=== PATIENT | female | born 1935 | race Two or more races ===

== ENCOUNTER 2017-12-05 16:32 | Inpatient (IN) | payer MEDICARE, OTHER ==
[~2017-12-05] VITALS: Ht 144.8 cm; Wt 102.5 kg
[2017-12-05 16:35] VITALS: BP 130/72
[2017-12-05] MEDS ORDERED: Sodium Chloride 500ML 500 ML IV ONE (17:01)
[2017-12-05] MEDS ORDERED: UNOBMED (17:43)
--- NOTE | 2017-12-05 18:07 | Emergency Room Report ---
History of Present Illness General Chief Complaint: Dyspnea/Respdistress Source: Patient Present Illness HPI 82-year-old female presents ED for evaluation. Patient complaining of cough and congestion times one day. Also complaining of pain and swelling to her legs. History of cellulitis to both legs and history of edema. States it is getting worse. Pain is throbbing, 8 out of 10, nonradiating. Denies chest pain or shortness of breath. Denies fevers or chills. Is on home oxygen but denies any worsening of symptoms. No other aggravating or relieving factors. Denies any other associated symptoms Allergies: Coded Allergies: No Known Allergies (Unverified , 12/05/17) Patient History Past Medical History: HTN, CHF Past Surgical History: none, pacemaker Pertinent Family History: none Social History: Denies: smoking, alcohol use, drug use Now: No Immunizations: UTD Reviewed Nursing Documentation: PMH: Agreed; PSxH: Agreed Nursing Documentation-PMH Past Medical History: No History, Except For Hx Cardiac Problems: Yes - CHF Hx Hypertension: Yes Hx Pacemaker: Yes Review of Systems All Other Systems: negative except mentioned in HPI Physical Exam Vital Signs Date Time Temp Pulse Resp B/P (MAP) Pulse Ox O2 Delivery O2 Flow Rate FiO2 12/05/17 16:25 98.4 86 20 130/72 97 Nasal Cannula 98.4 Sp02 EP Interpretation: reviewed, normal General Appearance: no apparent distress, alert, GCS 15, non-toxic Head: normocephalic, atraumatic Eyes: bilateral eye normal inspection, bilateral eye PERRL ENT: hearing grossly normal, normal pharynx, no angioedema, normal voice Neck: full range of motion, supple/symm/no masses Respiratory: chest non-tender, lungs clear, normal breath sounds, speaking full sentences Cardiovascular #1: regular rate, rhythm, no edema Cardiovascular #2: 2+ carotid (R), 2+ carotid (L), 2+ radial (R), 2+ radial (L) , 2+ dorsalis pedis (R), 2+ dorsalis pedis (L) Gastrointestinal: normal bowel sounds, non tender, soft, non-distended, no guarding, no rebound Rectal: deferred Genitourinary: normal inspection, no CVA tenderness Musculoskeletal: back normal, gait/station normal, normal range of motion, non- tender, swelling - bilateral LE Neurologic: alert, oriented x3, responsive, motor strength/tone normal, sensory intact, speech normal Psychiatric: judgement/insight normal, memory normal, mood/affect normal, no suicidal/homicidal ideation Reflexes: 3+ bicep (R), 3+ bicep (L), 3+ tricep (R), 3+ tricep (L), 3+ knee (R) , 3+ knee (L) Skin: other - erythema/induration b/l LEs Lymphatic: no adenopathy Medical Decision Making Diagnostic Impression: Primary Impression: Bilateral lower leg cellulitis Additional Impressions: CHF (congestive heart failure) Qualified Codes: I50.9 - Heart failure, unspecified Renal insufficiency ER Course Hospital Course 82-year-old female presents to ED with redness, swelling to lower extremities. c /o cough congestion Differential diagnoses include: Cellulitis, pneumonia, abscess, rash. Clinical course Patient placed on stretcher. After initial history and physical I ordered labs , blood Cx, UA, IVFs, doppler US of LLE labs reviewed - no leukocytosis, Hb/Hct stable, BUN/Cr elevated. EKG - NSR, no acute ischemic changes interpreted by me CXR - pacemaker, cardiomegaly. effusion noted antibiotics given. Case discussed with Dr Rivera and he agreed to accept the patient to his service for further care and support Diagnosis - bilateral lower extremity cellulitis. CHF. renal insuffiency Patient admitted to floor in serious condition Labs Test 12/05/17 18:05 White Blood Count 9.0 K/UL (4.8-10.8) Red Blood Count 3.80 M/UL (4.20-5.40) Hemoglobin 11.1 G/DL (12.0-16.0) Hematocrit 34.3 % (37.0-47.0) Mean Corpuscular Volume 90 FL (80-99) Mean Corpuscular Hemoglobin 29.1 PG (27.0-31.0) Mean Corpuscular Hemoglobin Concent 32.2 G/DL (32.0-36.0) Red Cell Distribution Width 15.6 % (11.6-14.8) Platelet Count 269 K/UL (150-450) Mean Platelet Volume 7.2 FL (6.5-10.1) Neutrophils (%) (Auto) 80.9 % (45.0-75.0) Lymphocytes (%) (Auto) 11.7 % (20.0-45.0) Monocytes (%) (Auto) 6.1 % (1.0-10.0) Eosinophils (%) (Auto) 0.7 % (0.0-3.0) Basophils (%) (Auto) 0.6 % (0.0-2.0) Sodium Level 139 MMOL/L (136-145) Potassium Level 4.5 MMOL/L (3.5-5.1) Chloride Level 102 MMOL/L (98-107) Carbon Dioxide Level 33 MMOL/L (21-32) Anion Gap 4 mmol/L (5-15) Blood Urea Nitrogen 32 mg/dL (7-18) Creatinine 1.5 MG/DL (0.55-1.30) Estimat Glomerular Filtration Rate mL/min (>60) Glucose Level 134 MG/DL (74-106) Lactic Acid Level 2.00 mmol/L (0.66-2.22) Calcium Level 8.4 MG/DL (8.5-10.1) Total Bilirubin 0.3 MG/DL (0.2-1.0) Aspartate Amino Transf (AST/SGOT) 18 U/L (15-37) Alanine Aminotransferase (ALT/SGPT) 29 U/L (12-78) Alkaline Phosphatase 57 U/L (46-116) Total Creatine Kinase 33 U/L (26-308) Creatine Kinase MB 1.2 NG/ML (0.0-3.6) Creatine Kinase MB Relative Index 3.6 Pro-B-Type Natriuretic Peptide 1317 pg/mL (0-125) Total Protein 6.1 G/DL (6.4-8.2) Albumin 2.4 G/DL (3.4-5.0) Globulin 3.7 g/dL Albumin/Globulin Ratio 0.6 (1.0-2.7) EKG Diagnostic Results Rate: normal Rhythm: NSR ST Segments: no acute changes ASA given to the pt in ED: No Rhythm Strip Diag. Results EP Interpretation: yes Rhythm: NSR, no PVC's, no ectopy Chest X-Ray Diagnostic Results Chest X-Ray Diagnostic Results : Chest X-Ray Ordered: Yes # of Views/Limited/Complete: 1 View Indication: Other - cough EP Interpretation: Yes Interpretation: no pneumothorax, other - cardiomegaly. bilateral effusion. pacemaker Impression: Other - chf Electronically Signed by: Electronically signed by Cesar Gonsalves MD Last Vital Signs Date Time Temp Pulse Resp B/P (MAP) Pulse Ox O2 Delivery O2 Flow Rate FiO2 12/05/17 16:35 98.4 20 130/72 97 Nasal Cannula 98.4 12/05/17 16:35 86 Status: improved Disposition: ADMITTED INPATIENT Condition: Serious Cesar Gonsalves MD December 05, 2017 18:07
[2017-12-05 18:20] LABS: BASOPHILS % (AUTO) 0.6 % (0.0-2.0); EOSINOPHILS % (AUTO) 0.7 % (0.0-3.0); HEMATOCRIT 34.3 % (37.0-47.0); HEMOGLOBIN 11.1 G/DL (12.0-16.0); LYMPHOCYTES % (AUTO) 11.7 % (20.0-45.0); MEAN CORPUSCULAR VOLUME 90 FL (80-99); MONOCYTES % (AUTO) 6.1 % (1.0-10.0); NEUTROPHILS % (AUTO) 80.9 % (45.0-75.0); PLATELET COUNT 269 K/UL (150-450); RED CELL DISTRIBUTION WIDTH 15.6 % (11.6-14.8)
[2017-12-05 18:30] LABS: ANION GAP 4 mmol/L (5-15); BLOOD UREA NITROGEN 32 mg/dL (7-18); CALCIUM 8.4 MG/DL (8.5-10.1); CARBON DIOXIDE 33 MMOL/L (21-32); CHLORIDE 102 MMOL/L (98-107); CREATININE 1.5 MG/DL (0.55-1.30); POTASSIUM 4.5 MMOL/L (3.5-5.1); SODIUM 139 MMOL/L (136-145)
[2017-12-05] MEDS ORDERED: Piperacillin/Tazobactam 3.375 GM in NS 110 ML IVPB ONE (18:30)
[2017-12-05 18:44] LABS: ALANINE AMINOTRANSFERASE 29 U/L (12-78); ALBUMIN 2.4 G/DL (3.4-5.0); ALBUMIN/GLOBULIN RATIO 0.6 (1.0-2.7); ALKALINE PHOSPHATASE 57 U/L (46-116); ASPARTATE AMINO TRANSFERASE 18 U/L (15-37); BILIRUBIN,TOTAL 0.3 MG/DL (0.2-1.0); CKMB 1.2 NG/ML (0.0-3.6); CREATINE KINASE 33 U/L (26-308)
[2017-12-05 18:49] VITALS: BP 137/98
[2017-12-05] MEDS ORDERED: Zolpidem 5mg tab ORAL PRN (21:00)
[2017-12-05] MEDS ORDERED: Milk of Magnesia 30ml Ud ORAL PRN (21:11)
[2017-12-05] MEDS ORDERED: Norco 5mg/325mg tab ORAL PRN (21:16)
[2017-12-05] MEDS: Heparin 5000 units/ml inj SUBQ SCH (22:25)
[2017-12-05] MEDS ORDERED: Vancomycin 1250mg/D5W 250ml IVPB SCH (22:30)
--- NOTE | 2017-12-05 22:30 | History and Physical Report ---
DATE OF ADMISSION: 12/05/2017 REASON FOR ADMISSION: Congestion, shortness of breath, worsening edema, and possible mild pulmonary edema. HISTORY OF PRESENT ILLNESS: The patient is an 82-year-old female, recently discharged from the half-way. The patient noted to have increasing cough and congestion over the past 1 day, also increasing edema. The patient had cellulitic changes as well, both legs. The patient notes that it has gotten worse. The pain is throbbing, 8/10. Denies any chest pain or shortness of breath. Denies any fevers or chills. The patient is on home oxygen, poorly ambulatory. The patient recently at a half-way due to persistent cellulitis and lack of improvement at home. The patient's care discussed and reviewed. PAST MEDICAL HISTORY: Hypertension, CHF, pacemaker, chronic lower extremity edema, chronic cellulitic changes, COPD/asthma and chronic congestion. MEDICATIONS: Reviewed. ALLERGIES: Reviewed. SOCIAL HISTORY: Nonsmoker and nondrinker. Lives with her , who is currently ill as well. REVIEW OF SYSTEMS: Positive for poorly ambulatory, chronic edema, chronic shortness of breath and congestion, history of pacemaker, hypertension and history of pulmonary edema. PHYSICAL EXAMINATION: GENERAL: A well-developed female, pleasant, alert. VITAL SIGNS: Blood pressure 130/72, temperature 98.4 degrees, pulse 86, respiratory rate 20, and saturation 97%. HEENT: Negative. Extraocular movements are grossly intact. Oropharynx is moist. NECK: Supple. LUNGS: Scattered rhonchi. Occasional crackle both bases. CARDIAC: S1 and S2. Regular rate and rhythm without murmurs, rubs, or gallops. ABDOMEN: Soft, obese, and nontender. EXTREMITIES: There is significant edema, diffusely possibly in the lower extremity. NEUROLOGICAL: Very weak overall. LABORATORY AND DIAGNOSTIC DATA: Lab data reviewed, but most are pending. X-ray reviewed with significant pulmonary edema. EKG noted and reviewed. IMPRESSION: 1. Probable pulmonary edema. 2. Possible underlying respiratory congestion. 3. Possible underlying pneumonia. 4. Pacemaker. 5. Hypertension. 6. Asthma/COPD. 7. Mild pleural effusion. 8. Failure to thrive. RECOMMENDATION: Supportive care. Resume medications. Monitor clinically and recommend further. Diuresis able. Empiric antibiotics and follow clinically for further changes and interventions. Stabilize. Provide respiratory care oxygen and discharge to home once the patient improves. Shubham Rivera M.D. DR: KINDRA JOB#: [id number] CC:
[2017-12-05] MEDS: Albuterol ud Inhalation HHN SCH (23:16)
[2017-12-06] MEDS: Piperacillin/Tazobactam 3.375 GM in D5W 110 ML IVPB SCH ×3 (01:52→21:39)
[2017-12-06] MEDS: Albuterol ud Inhalation HHN SCH ×6 (03:49→22:43)
[2017-12-06 04:00] VITALS: BP 113/58
[2017-12-06 07:03] LABS: ANION GAP 4 mmol/L (5-15); BLOOD UREA NITROGEN 25 mg/dL (7-18); CARBON DIOXIDE 32 MMOL/L (21-32); CHLORIDE 105 MMOL/L (98-107); CREATININE 1.5 MG/DL (0.55-1.30); POTASSIUM 3.5 MMOL/L (3.5-5.1); SODIUM 141 MMOL/L (136-145)
[2017-12-06 07:12] LABS: BASOPHILS % (AUTO) 0.9 % (0.0-2.0); EOSINOPHILS % (AUTO) 1.1 % (0.0-3.0); HEMATOCRIT 30.8 % (37.0-47.0); HEMOGLOBIN 10.1 G/DL (12.0-16.0); LYMPHOCYTES % (AUTO) 18.2 % (20.0-45.0); MEAN CORPUSCULAR VOLUME 91 FL (80-99); MONOCYTES % (AUTO) 7.6 % (1.0-10.0); NEUTROPHILS % (AUTO) 72.2 % (45.0-75.0); PLATELET COUNT 223 K/UL (150-450); RED CELL DISTRIBUTION WIDTH 16.2 % (11.6-14.8); WHITE BLOOD COUNT 6.6 K/UL (4.8-10.8)
[2017-12-06 08:00] VITALS: BP 132/68
--- NOTE | 2017-12-06 08:58 | General Progress Note ---
Assessment/Plan Problem List: (1) Renal insufficiency ICD Codes: N28.9 - Disorder of kidney and ureter, unspecified SNOMED: 435679929, 259122071 (2) CHF (congestive heart failure) ICD Codes: I50.9 - Heart failure, unspecified SNOMED: 84013041 Qualifiers: Qualified Codes: I50.9 - Heart failure, unspecified (3) Bilateral lower leg cellulitis ICD Codes: L03.116 - Cellulitis of left lower limb; L03.115 - Cellulitis of right lower limb SNOMED: 670854092 (4) Skin cancer ICD Codes: C44.90 - Unspecified malignant neoplasm of skin, unspecified SNOMED: 213621398 Status: stable Assessment/Plan diuresis iv abx cxr monitor labs follow up cultures skin care Subjective ROS Limited/Unobtainable: No Constitutional: Reports: weakness HEENT: Reports: no symptoms Cardiovascular: Reports: edema Respiratory: Reports: cough, sputum Gastrointestinal/Abdominal: Reports: no symptoms Genitourinary: Reports: no symptoms Neurologic/Psychiatric: Reports: no symptoms Endocrine: Reports: no symptoms Hematologic/Lymphatic: Reports: no symptoms Allergies: Coded Allergies: IODINE (Verified Allergy, Unknown, 12/05/17) POVIDONE-IODINE (Verified Allergy, Unknown, 12/05/17) SOAP (Verified Allergy, Unknown, 12/05/17) All Systems: reviewed and negative except above Subjective multiple complaints. still with sob. no chest pain doesnt like the food. wants to get up to chair Objective Last 24 Hour Vital Signs Date Time Temp Pulse Resp B/P (MAP) Pulse Ox O2 Delivery O2 Flow Rate FiO2 12/06/17 08:00 98.0 83 20 132/68 95 98.0 12/06/17 04:00 97.2 81 22 113/58 95 97.2 12/06/17 03:48 85 20 98 Nasal Cannula 2.0 28 12/06/17 03:30 83 20 96 Nasal Cannula 2.0 28 12/05/17 23:18 100 20 97 Nasal Cannula 2.0 28 12/05/17 23:18 100 20 Nasal Cannula 2.0 28 12/05/17 23:10 99 20 94 Nasal Cannula 2.0 28 12/05/17 19:56 98.6 22 137/98 94 Nasal Cannula 98.6 12/05/17 18:49 98.6 22 137/98 94 Nasal Cannula 98.6 12/05/17 16:35 98.4 20 130/72 97 Nasal Cannula 98.4 12/05/17 16:35 86 20 Nasal Cannula 12/05/17 16:25 98.4 86 20 130/72 97 Nasal Cannula 98.4 Intake and Output 12/05/17 12/06/17 19:00 07:00 Intake Total 500 ml 250.0 ml Balance 500 ml 250.0 ml Intake Oral 30 ml IV Total 500 ml 220.0 ml # Voids 1 Laboratory Tests 12/05/17 18:05: White Blood Count 9.0, Red Blood Count 3.80L, Hemoglobin 11.1L, Hematocrit 34.3L , Mean Corpuscular Volume 90, Mean Corpuscular Hemoglobin 29.1, Mean Corpuscular Hemoglobin Concent 32.2, Red Cell Distribution Width 15.6H, Platelet Count 269, Mean Platelet Volume 7.2, Neutrophils (%) (Auto) 80.9H, Lymphocytes (%) (Auto) 11.7L, Monocytes (%) (Auto) 6.1, Eosinophils (%) (Auto) 0.7, Basophils (%) (Auto) 0.6, Sodium Level 139, Potassium Level 4.5, Chloride Level 102, Carbon Dioxide Level 33H, Anion Gap 4L, Blood Urea Nitrogen 32H, Creatinine 1.5H, Estimat Glomerular Filtration Rate , Glucose Level 134H, Lactic Acid Level 2.00, Calcium Level 8.4L, Total Bilirubin 0.3, Aspartate Amino Transf (AST/SGOT) 18, Alanine Aminotransferase (ALT/SGPT) 29, Alkaline Phosphatase 57, Total Creatine Kinase 33, Creatine Kinase MB 1.2, Creatine Kinase MB Relative Index 3.6, Pro-B-Type Natriuretic Peptide 1317H, Total Protein 6.1L, Albumin 2.4L, Globulin 3.7, Albumin/Globulin Ratio 0.6L 12/05/17 19:25: Lactic Acid Level 1.80 12/06/17 06:00: White Blood Count 6.6, Red Blood Count 3.40L, Hemoglobin 10.1L, Hematocrit 30.8L , Mean Corpuscular Volume 91, Mean Corpuscular Hemoglobin 29.7, Mean Corpuscular Hemoglobin Concent 32.8, Red Cell Distribution Width 16.2H, Platelet Count 223, Mean Platelet Volume 7.0, Neutrophils (%) (Auto) 72.2, Lymphocytes (%) (Auto) 18.2L, Monocytes (%) (Auto) 7.6, Eosinophils (%) (Auto) 1.1, Basophils (%) (Auto) 0.9, Sodium Level 141, Potassium Level 3.5, Chloride Level 105, Carbon Dioxide Level 32, Anion Gap 4L, Blood Urea Nitrogen 25H, Creatinine 1.5H, Estimat Glomerular Filtration Rate , Glucose Level 128H, Calcium Level 8.0L, Pro-B-Type Natriuretic Peptide 1216H Height (Feet): 4 Height (Inches): 9.00 Weight (Pounds): 180 General Appearance: WD/WN, alert Neck: supple Cardiovascular: regular rhythm Respiratory/Chest: rhonchi - bilaterally Abdomen: normal bowel sounds, non tender, soft, no organomegaly Edema: moderate edema LUBA HERNANDEZ December 06, 2017 08:58
[2017-12-06] MEDS: Metoprolol 25mg tab ORAL SCH ×2 (10:10→21:39)
[2017-12-06] MEDS: Aspirin EC 81mg tab ORAL SCH (10:10)
[2017-12-06] MEDS: Heparin 5000 units/ml inj SUBQ SCH ×2 (10:12→21:41)
[2017-12-06] MEDS: Advair 250/50 Inhaler - 14 dose INH SCH ×2 (12:26→22:43)
--- NOTE | 2017-12-06 12:27 | Diagnostic Imaging Report ---
Indication: Cough Technique: XRAY Chest 1v Comparison: None Findings: Limited exam with low lung volumes. Heart is enlarged. There is pulmonary vascular congestion. There are patchy bibasilar airspace opacities which may be related to bronchovascular crowding in the lung volumes are infectious infiltrate not entirely excluded. Right-sided pacemaker in place with lead tips projecting over the expected regions of the right atrium and ventricle. No significant pleural effusion. No pneumothorax. There are degenerative changes of the spine. No acute osseous abnormality seen. Impression: Limited exam with low lung volumes. Cardiomegaly and pulmonary vascular congestion. Patchy bibasilar airspace opacities may be related to vascular crowding given low lung volumes. Infectious infiltrates not excluded. Clinical correlation and follow-up exam recommended. Study obtained via the emergency department however patient admitted to the hospital at time of dictation of the final report.
--- NOTE | 2017-12-06 13:20 | Cardiology Report ---
APPROVED REPORT EXAM: Two-dimensional and M-mode echocardiogram with Doppler and color Doppler. INDICATION Congestive Heart Failure Technically difficult and limited study due to leasions from skin cancer. Study quality precludes accurate assessment of regional wall motion. M-mode measurements of left ventricle not obtainable. Normal left ventricular chamber size, systolic function and wall motion. Left ventricular ejection fraction estimated to be 55 %. Concentric left ventricular hypertrophy. Anterior Echo-free space, may be due to pericardial fat or effusion. All other cardiac chamber sizes are within normal limits. Aortic valve calcification with decreased cusp excursion c/w aortic stenosis. Heavily thickened mitral valve leaflets with reduced excursion. Heavy mitral annulus and aortic root calcification. Pulmonic valve not visualized. Normal tricuspid valve structure. IVC dilated at 2.1 cm and non-collapsing with respiration suggestive of increased RA pressure. A color flow and spectral Doppler study was performed and revealed: Trace aortic insufficiency. Peak aortic valve gradient of 63 mm Hg and a mean of 32 mmHg. Aortic valve area 1.2 cm2 calculated by continuity equation. Moderate mitral regurgitation. Mitral inflow velocities indicates possible pseudo normalization pattern implying significant left ventricular diastolic dysfunction (Grade II). Trace tricuspid regurgitation. Tricuspid systolic velocities suggests peak right ventricular systolic pressure of 35 mmHg, consistent with mild pulmonary hypertension.
[2017-12-06 16:04] VITALS: BP 122/59
--- NOTE | 2017-12-06 17:59 | Pulmonolgy Critical Care Note ---
Critical Care - Asmt/Plan Assessment/Plan: REASON FOR ADMISSION: Congestion, shortness of breath, worsening edema, and possible mild pulmonary edema. HISTORY OF PRESENT ILLNESS: The patient is an 82-year-old female, recently discharged from the alf. The patient noted to have increasing cough and congestion over the past 1 day, also increasing edema. The patient had cellulitic changes as well, both legs. The patient notes that it has gotten worse. The pain is throbbing, 8/10. Denies any chest pain or shortness of breath. Denies any fevers or chills. The patient is on home oxygen, poorly ambulatory. The patient recently at a alf due to persistent cellulitis and lack of improvement at home. The patient's care discussed and reviewed. PAST MEDICAL HISTORY: Hypertension, CHF, pacemaker, chronic lower extremity edema, chronic cellulitic changes, COPD/asthma and chronic congestion. MEDICATIONS: Reviewed. ALLERGIES: Reviewed. SOCIAL HISTORY: Nonsmoker and nondrinker. Lives with her , who is currently ill as well. REVIEW OF SYSTEMS: Positive for poorly ambulatory, chronic edema, chronic shortness of breath and congestion, history of pacemaker, hypertension and history of pulmonary edema. PHYSICAL EXAMINATION: GENERAL: A well-developed female, pleasant, alert. VITAL SIGNS: Vital signs noted and stable, and saturation 94-8%. HEENT: Negative. Extraocular movements are grossly intact. Oropharynx is moist. NECK: Supple. LUNGS: Scattered rhonchi. Occasional crackle both bases. CARDIAC: S1 and S2. Regular rate and rhythm without murmurs, rubs, or gallops. ABDOMEN: Soft, obese, and nontender. EXTREMITIES: There is significant edema, diffusely possibly in the lower extremity. NEUROLOGICAL: Very weak overall. LABORATORY AND DIAGNOSTIC DATA: Lab data reviewed, but most are pending. X-ray reviewed with significant pulmonary edema. EKG noted and reviewed. IMPRESSION: 1. Probable pulmonary edema. 2. Possible underlying respiratory congestion. 3. Possible underlying pneumonia. 4. Pacemaker. 5. Hypertension. 6. Asthma/COPD. 7. Mild pleural effusion. 8. Failure to thrive. RECOMMENDATION: Supportive care. Resume medications. Monitor clinically and recommend further. Diuresis able. Empiric antibiotics and follow clinically for further changes and interventions. Stabilize. Provide respiratory care oxygen and discharge to home once the patient improves. Critical Care - Objective Last 24 Hour Vital Signs Date Time Temp Pulse Resp B/P (MAP) Pulse Ox O2 Delivery O2 Flow Rate FiO2 12/06/17 16:04 97.8 85 21 122/59 97 Room Air 97.8 12/06/17 15:50 68 20 99 Nasal Cannula 2.0 28 12/06/17 15:38 67 20 96 Nasal Cannula 2.0 28 12/06/17 13:36 79 22 99 Nasal Cannula 2.0 28 12/06/17 12:28 79 20 99 Nasal Cannula 2.0 12/06/17 12:26 78 22 99 Nasal Cannula 2.0 12/06/17 12:26 78 22 99 Nasal Cannula 2.0 12/06/17 10:10 81 132/68 12/06/17 08:57 81 22 95 Nasal Cannula 2.0 12/06/17 08:00 98.0 83 20 132/68 95 98.0 12/06/17 04:00 97.2 81 22 113/58 95 97.2 12/06/17 03:48 85 20 98 Nasal Cannula 2.0 12/06/17 03:30 83 20 96 Nasal Cannula 2.0 12/05/17 23:18 100 20 97 Nasal Cannula 2.0 12/05/17 23:18 100 20 Nasal Cannula 2.0 12/05/17 23:10 99 20 94 Nasal Cannula 2.0 12/05/17 19:56 98.6 22 137/98 94 Nasal Cannula 98.6 12/05/17 18:49 98.6 22 137/98 94 Nasal Cannula 98.6 Micro: Microbiology Date/Time Source Procedure Growth Status 12/06/17 01:00 Leg Left Gram Stain - Final Resulted 12/06/17 01:00 Leg Left Wound Culture Pending Resulted Critical Care - Subjective ROS Limited/Unobtainable: Yes Condition: stable EKG Rhythm: Sinus Rhythm FI02: 28 Sputum Amount: Small I&O: Intake and Output 12/05/17 12/06/17 19:00 07:00 Intake Total 500 ml 250.0 ml Balance 500 ml 250.0 ml Intake Oral 30 ml IV Total 500 ml 220.0 ml # Voids 1 Levi Byers M.D. December 06, 2017 17:59
[2017-12-06] MEDS ORDERED: Triamcinolone 0.1% 15gm Cr TOPIC SCH (18:00)
[2017-12-06] MEDS: Triamcinolone 0.1% 15gm Cr TOPIC SCH (18:06)
[2017-12-06] MEDS: Pred Forte 1% Opth Susp 1ml RIGHT EYE SCH ×2 (18:06→21:40)
[2017-12-06] MEDS: Montelukast 10mg tablet ORAL SCH (18:06)
[2017-12-06 20:00] VITALS: BP 126/62
--- NOTE | 2017-12-07 00:15 | Progress Note ---
DATE: 12/06/2017 CARDIOLOGY PROGRESS NOTE SUBJECTIVE: The patient remains short of breath even at rest. Diuresis efforts are ongoing. OBJECTIVE: VITAL SIGNS: Blood pressure 132/68, pulse 83, and respirations 20. LUNGS: With bilateral breath sounds. Scattered rhonchi and rales. HEART: Regular rhythm and rate. Normal S1 and S2 with a 1/6 systolic murmur at apex. ABDOMEN: Soft and nontender. EXTREMITIES: With trace edema. LABORATORY AND DIAGNOSTIC DATA: Echocardiogram revealed ejection fraction of 55%, aortic valve area of 1.2, and PA systolic pressure of 35. White count 6.6 and hemoglobin 10. Sodium 141, potassium 3.5, BUN 25, and creatinine 1.5. Pro-natriuretic peptide 1216. Albumin 2.4. IMPRESSION: 1. Acute on chronic diastolic congestive heart failure. 2. Probable pneumonia. 3. Paroxysmal bronchospasm. 4. Permanent pacemaker. 5. Hypertensive heart disease. 6. Chronic obstructive pulmonary disease. 7. Pleural effusion. PLAN: 1. Diuresis. 2. Pacemaker interrogation if not recently done. 3. We will attempt to obtain records. 4. Bronchodilators, empiric antibiotics, and DVT prophylaxis. 5. Replace electrolytes as needed. 6. Oxygen supplementation as well. Levi Wu M.D. DR: MADHU JOB#: [id number] CC:
[2017-12-07] MEDS: Albuterol ud Inhalation HHN SCH ×6 (03:00→23:04)
[2017-12-07 04:00] VITALS: BP 127/58
[2017-12-07 08:00] VITALS: BP 142/68
--- NOTE | 2017-12-07 08:38 | General Progress Note ---
Assessment/Plan Problem List: (1) Renal insufficiency ICD Codes: N28.9 - Disorder of kidney and ureter, unspecified SNOMED: 736586899, 555892849 (2) CHF (congestive heart failure) ICD Codes: I50.9 - Heart failure, unspecified SNOMED: 14235153 Qualifiers: Qualified Codes: I50.9 - Heart failure, unspecified (3) Bilateral lower leg cellulitis ICD Codes: L03.116 - Cellulitis of left lower limb; L03.115 - Cellulitis of right lower limb SNOMED: 052093495 (4) Skin cancer ICD Codes: C44.90 - Unspecified malignant neoplasm of skin, unspecified SNOMED: 658636171 Status: stable, progressing Assessment/Plan diuresis iv abx cxr monitor labs follow up cultures skin care Subjective ROS Limited/Unobtainable: No Constitutional: Reports: malaise, weakness HEENT: Reports: no symptoms Cardiovascular: Reports: no symptoms Respiratory: Reports: cough, wheezing Gastrointestinal/Abdominal: Reports: no symptoms Genitourinary: Reports: no symptoms Neurologic/Psychiatric: Reports: no symptoms Endocrine: Reports: no symptoms Hematologic/Lymphatic: Reports: no symptoms Allergies: Coded Allergies: IODINE (Verified Allergy, Unknown, 12/05/17) POVIDONE-IODINE (Verified Allergy, Unknown, 12/05/17) SOAP (Verified Allergy, Unknown, 12/05/17) All Systems: reviewed and negative except above Subjective no events. less sob today. getting resp rx. no fevers or chills. Objective Last 24 Hour Vital Signs Date Time Temp Pulse Resp B/P (MAP) Pulse Ox O2 Delivery O2 Flow Rate FiO2 12/07/17 08:15 76 18 99 Nasal Cannula 2.0 12/07/17 08:08 Nasal Cannula 2.0 12/07/17 08:08 99 Nasal Cannula 2.0 12/07/17 08:04 74 16 99 Nasal Cannula 2.0 12/07/17 04:00 97.6 64 20 127/58 97 Nasal Cannula 97.6 12/07/17 03:07 2.0 12/07/17 03:06 2.0 12/07/17 00:00 Nasal Cannula 12/06/17 22:52 80 20 99 Nasal Cannula 2.0 12/06/17 22:44 75 20 98 Nasal Cannula 2.0 12/06/17 22:44 77 20 98 Nasal Cannula 2.0 28 12/06/17 22:44 77 22 99 Nasal Cannula 2.0 28 12/06/17 21:39 80 126/62 12/06/17 20:00 97.5 80 19 126/62 98 Nasal Cannula 97.5 12/06/17 19:11 81 20 100 Nasal Cannula 2.0 28 12/06/17 19:00 82 20 98 Nasal Cannula 2.0 28 12/06/17 16:04 97.8 85 21 122/59 97 Room Air 97.8 12/06/17 15:50 68 20 99 Nasal Cannula 2.0 28 12/06/17 15:38 67 20 96 Nasal Cannula 2.0 28 12/06/17 13:36 79 22 99 Nasal Cannula 2.0 28 12/06/17 12:28 79 20 99 Nasal Cannula 2.0 12/06/17 12:26 78 22 99 Nasal Cannula 2.0 12/06/17 12:26 78 22 99 Nasal Cannula 2.0 12/06/17 10:10 81 132/68 12/06/17 08:57 81 22 95 Nasal Cannula 2.0 28 Intake and Output 12/06/17 12/07/17 19:00 07:00 Intake Total 1280 ml 120 ml Balance 1280 ml 120 ml Intake Oral 1280 ml 120 ml # Voids 6 3 # Bowel Movements 4 Height (Feet): 4 Height (Inches): 9.00 Weight (Pounds): 180 General Appearance: WD/WN Neck: supple Cardiovascular: normal rate, regular rhythm Respiratory/Chest: expiratory wheezing Edema: no edema noted Arm (L), no edema noted Arm (R), no edema noted Leg (L), no edema noted Leg (R), no edema noted Pedal (L), no edema noted Pedal (R), no edema noted Generalized LUBA HERNANDEZ December 07, 2017 08:38
[2017-12-07] MEDS ORDERED: Esomeprazole sodium 40mg vial IVP SCH (09:00)
[2017-12-07] MEDS: Metoprolol 25mg tab ORAL SCH ×2 (09:19→20:14)
[2017-12-07] MEDS: Aspirin EC 81mg tab ORAL SCH (09:19)
[2017-12-07] MEDS: Pred Forte 1% Opth Susp 1ml RIGHT EYE SCH ×4 (09:19→20:26)
[2017-12-07] MEDS: Advair 250/50 Inhaler - 14 dose INH SCH ×2 (09:20→19:54)
[2017-12-07] MEDS: Premarin tab 0.625MG ORAL SCH (09:20)
[2017-12-07] MEDS: Triamcinolone 0.1% 15gm Cr TOPIC SCH ×2 (09:21→17:22)
[2017-12-07] MEDS: Heparin 5000 units/ml inj SUBQ SCH ×2 (09:22→20:25)
[2017-12-07] MEDS: Piperacillin/Tazobactam 3.375 GM in D5W 110 ML IVPB SCH ×2 (09:23→20:15)
[2017-12-07 09:42] LABS: ALANINE AMINOTRANSFERASE 25 U/L (12-78); ALBUMIN 2.3 G/DL (3.4-5.0); ALBUMIN/GLOBULIN RATIO 0.7 (1.0-2.7); ALKALINE PHOSPHATASE 49 U/L (46-116); ANION GAP 6 mmol/L (5-15); ASPARTATE AMINO TRANSFERASE 16 U/L (15-37); BILIRUBIN,TOTAL 0.3 MG/DL (0.2-1.0); BLOOD UREA NITROGEN 20 mg/dL (7-18); CALCIUM 8.2 MG/DL (8.5-10.1); CARBON DIOXIDE 33 MMOL/L (21-32); CHLORIDE 105 MMOL/L (98-107); CREATININE 1.2 MG/DL (0.55-1.30); SODIUM 144 MMOL/L (136-145)
[2017-12-07 12:00] VITALS: BP 124/74
[2017-12-07] MEDS: Vancomycin 1gm in D5W 275ml IVPB SCH (13:07)
[2017-12-07 16:00] VITALS: BP 111/69
--- NOTE | 2017-12-07 17:02 | Pulmonolgy Critical Care Note ---
Critical Care - Asmt/Plan Assessment/Plan: REASON FOR ADMISSION: Congestion, shortness of breath, worsening edema, and possible mild pulmonary edema. HISTORY OF PRESENT ILLNESS: The patient is an 82-year-old female, [facility]. The patient noted to have increasing cough and congestion over the past 1 day, also increasing edema. The patient had cellulitic changes as well, both legs. The patient notes that it has gotten worse. The pain is throbbing, 8/10. Denies any chest pain or shortness of breath. Denies any fevers or chills. The patient is on home oxygen, poorly ambulatory. The patient recently at a [facility] due to persistent cellulitis and lack of improvement at home. The patient's care discussed and reviewed. Less short of breath today PAST MEDICAL HISTORY: Hypertension, CHF, pacemaker, chronic lower extremity edema, chronic cellulitic changes, COPD/asthma and chronic congestion. MEDICATIONS: Reviewed. ALLERGIES: Reviewed. SOCIAL HISTORY: Nonsmoker and nondrinker. Lives with her , who is currently ill as well. REVIEW OF SYSTEMS: Positive for poorly ambulatory, chronic edema, chronic shortness of breath and congestion, history of pacemaker, hypertension and history of pulmonary edema. PHYSICAL EXAMINATION: GENERAL: A well-developed female, pleasant, alert. VITAL SIGNS: Vital signs noted and stable, and saturation 94-8%. HEENT: Negative. Extraocular movements are grossly intact. Oropharynx is moist. NECK: Supple. LUNGS: Scattered rhonchi. Occasional crackle both bases. CARDIAC: S1 and S2. Regular rate and rhythm without murmurs, rubs, or gallops. ABDOMEN: Soft, obese, and nontender. EXTREMITIES: There is significant edema, diffusely possibly in the lower extremity. NEUROLOGICAL: Very weak overall. LABORATORY AND DIAGNOSTIC DATA: Lab data reviewed, but most are pending. X-ray reviewed with significant pulmonary edema. EKG noted and reviewed. IMPRESSION: 1. Probable pulmonary edema. 2. Possible underlying respiratory congestion. 3. Possible underlying pneumonia. 4. Pacemaker. 5. Hypertension. 6. Asthma/COPD. 7. Mild pleural effusion. 8. Failure to thrive. RECOMMENDATION: Supportive care. Resume medications. Monitor clinically and recommend further. Diuresis able. Empiric antibiotics and follow clinically for further changes and interventions. Stabilize. Provide respiratory care oxygen and discharge to home once the patient improves. Critical Care - Objective Last 24 Hour Vital Signs Date Time Temp Pulse Resp B/P (MAP) Pulse Ox O2 Delivery O2 Flow Rate FiO2 12/07/17 16:00 98.0 79 21 111/69 100 Nasal Cannula 2.0 98.0 12/07/17 14:42 81 18 99 Nasal Cannula 2.0 28 12/07/17 14:32 79 18 97 Nasal Cannula 2.0 28 12/07/17 12:00 97.3 80 20 124/74 97 Nasal Cannula 2.0 97.3 12/07/17 11:22 83 20 99 Nasal Cannula 2.0 28 12/07/17 11:12 80 20 97 Nasal Cannula 2.0 12/07/17 10:02 Nasal Cannula 2.0 28 12/07/17 10:02 Nasal Cannula 2.0 28 12/07/17 09:19 76 142/68 12/07/17 08:15 76 18 99 Nasal Cannula 2.0 28 12/07/17 08:08 Nasal Cannula 2.0 28 12/07/17 08:08 99 Nasal Cannula 2.0 12/07/17 08:04 74 16 99 Nasal Cannula 2.0 28 12/07/17 08:00 98.6 77 20 142/68 100 Nasal Cannula 2.0 98.6 12/07/17 04:00 97.6 64 20 127/58 97 Nasal Cannula 97.6 12/07/17 03:07 2.0 28 12/07/17 03:06 2.0 28 12/07/17 00:00 Nasal Cannula 12/06/17 22:52 80 20 99 Nasal Cannula 2.0 12/06/17 22:44 75 20 98 Nasal Cannula 2.0 12/06/17 22:44 77 20 98 Nasal Cannula 2.0 28 12/06/17 22:44 77 22 99 Nasal Cannula 2.0 28 12/06/17 21:39 80 126/62 12/06/17 20:00 97.5 80 19 126/62 98 Nasal Cannula 97.5 12/06/17 19:11 81 20 100 Nasal Cannula 2.0 28 12/06/17 19:00 82 20 98 Nasal Cannula 2.0 28 Micro: Microbiology Date/Time Source Procedure Growth Status 12/05/17 18:05 Blood Blood Culture - Preliminary NO GROWTH AFTER 24 HOURS Resulted 12/05/17 17:45 Blood Blood Culture - Preliminary NO GROWTH AFTER 24 HOURS Resulted 12/06/17 01:00 Leg Left Gram Stain - Final Resulted 12/06/17 01:00 Wound Culture - Preliminary Gram Negative Bacillus 1 Resulted Critical Care - Subjective ROS Limited/Unobtainable: No Condition: improving EKG Rhythm: Sinus Rhythm FI02: 28 Sputum Amount: None I&O: Intake and Output 12/06/17 12/07/17 19:00 07:00 Intake Total 1280 ml 120 ml Balance 1280 ml 120 ml Intake Oral 1280 ml 120 ml # Voids 6 3 # Bowel Movements 4 Levi Byers M.D. December 07, 2017 17:01
[2017-12-07] MEDS: Montelukast 10mg tablet ORAL SCH (17:21)
[2017-12-07 20:00] VITALS: BP 149/101
[2017-12-08] VITALS: BP 134/54
[2017-12-08] MEDS: Albuterol ud Inhalation HHN SCH ×6 (03:00→23:00)
[2017-12-08 04:00] VITALS: BP 133/55
[2017-12-08 08:00] VITALS: BP 149/67
--- NOTE | 2017-12-08 08:09 | General Progress Note ---
Assessment/Plan Problem List: (1) Renal insufficiency ICD Codes: N28.9 - Disorder of kidney and ureter, unspecified SNOMED: 062234637, 079682506 (2) CHF (congestive heart failure) ICD Codes: I50.9 - Heart failure, unspecified SNOMED: 92082193 Qualifiers: Qualified Codes: I50.9 - Heart failure, unspecified (3) Bilateral lower leg cellulitis ICD Codes: L03.116 - Cellulitis of left lower limb; L03.115 - Cellulitis of right lower limb SNOMED: 265449982 (4) Skin cancer ICD Codes: C44.90 - Unspecified malignant neoplasm of skin, unspecified SNOMED: 053184004 Status: stable Assessment/Plan diuresis iv abx cxr monitor labs follow up cultures skin care dc planning tomorrow if stable Subjective ROS Limited/Unobtainable: No Constitutional: Reports: malaise, weakness HEENT: Reports: no symptoms Cardiovascular: Reports: no symptoms Respiratory: Reports: cough Gastrointestinal/Abdominal: Reports: no symptoms Genitourinary: Reports: no symptoms Neurologic/Psychiatric: Reports: no symptoms Endocrine: Reports: no symptoms Hematologic/Lymphatic: Reports: no symptoms Allergies: Coded Allergies: IODINE (Verified Allergy, Unknown, 12/05/17) POVIDONE-IODINE (Verified Allergy, Unknown, 12/05/17) SOAP (Verified Allergy, Unknown, 12/05/17) All Systems: reviewed and negative except above Subjective no events. less sob today. getting resp rx. no fevers or chills. no new complaints. Objective Last 24 Hour Vital Signs Date Time Temp Pulse Resp B/P (MAP) Pulse Ox O2 Delivery O2 Flow Rate FiO2 12/08/17 04:00 97.8 81 20 133/55 100 97.8 12/08/17 03:02 Nasal Cannula 12/08/17 03:01 Nasal Cannula 12/08/17 00:00 97.2 81 20 134/54 95 97.2 12/07/17 23:11 79 21 100 Nasal Cannula 2.0 28 12/07/17 23:03 28 12/07/17 23:02 79 21 100 Nasal Cannula 2.0 28 12/07/17 20:23 79 21 100 Nasal Cannula 2.0 28 12/07/17 20:14 76 149/101 12/07/17 20:03 79 21 100 Nasal Cannula 2.0 12/07/17 20:00 97.6 76 20 149/101 95 Nasal Cannula 2.0 97.6 12/07/17 19:52 28 12/07/17 19:52 79 21 100 Nasal Cannula 2.0 12/07/17 19:52 79 21 100 Nasal Cannula 2.0 12/07/17 19:51 Nasal Cannula 2.0 12/07/17 19:51 79 21 100 Nasal Cannula 2.0 12/07/17 19:47 100 Nasal Cannula 2.0 12/07/17 16:00 98.0 79 21 111/69 100 Nasal Cannula 2.0 98.0 12/07/17 14:42 81 18 99 Nasal Cannula 2.0 12/07/17 14:32 79 18 97 Nasal Cannula 2.0 12/07/17 12:00 97.3 80 20 124/74 97 Nasal Cannula 2.0 97.3 12/07/17 11:22 83 20 99 Nasal Cannula 2.0 12/07/17 11:12 80 20 97 Nasal Cannula 2.0 12/07/17 10:02 Nasal Cannula 2.0 28 12/07/17 10:02 Nasal Cannula 2.0 12/07/17 09:19 76 142/68 12/07/17 08:15 76 18 99 Nasal Cannula 2.0 28 Intake and Output 12/07/17 12/08/17 19:00 07:00 Intake Total 945.0 ml 182.5 ml Output Total 500 ml 450 ml Balance 445.0 ml -267.5 ml Intake Oral 560 ml 100 ml IV Total 385.0 ml 82.5 ml Output Urine Total 500 ml 450 ml # Voids 4 # Bowel Movements 4 Height (Feet): 4 Height (Inches): 9.00 Weight (Pounds): 180 MARYJERAMYK December 08, 2017 08:09
[2017-12-08] MEDS: Piperacillin/Tazobactam 3.375 GM in D5W 110 ML IVPB SCH ×2 (08:57→20:48)
[2017-12-08] MEDS: Premarin tab 0.625MG ORAL SCH (08:57)
[2017-12-08] MEDS: Metoprolol 25mg tab ORAL SCH ×2 (08:57→20:49)
[2017-12-08] MEDS: Pred Forte 1% Opth Susp 1ml RIGHT EYE SCH ×4 (08:57→20:57)
[2017-12-08] MEDS: Triamcinolone 0.1% 15gm Cr TOPIC SCH ×2 (08:57→17:26)
[2017-12-08] MEDS: Aspirin EC 81mg tab ORAL SCH (08:57)
[2017-12-08] MEDS: Heparin 5000 units/ml inj SUBQ SCH ×2 (08:59→20:57)
[2017-12-08] MEDS: Advair 250/50 Inhaler - 14 dose INH SCH ×2 (09:52→19:50)
[2017-12-08 11:30] VITALS: BP 116/54
[2017-12-08 16:00] VITALS: BP 109/68
--- NOTE | 2017-12-08 17:20 | Pulmonolgy Critical Care Note ---
Critical Care - Asmt/Plan Assessment/Plan: REASON FOR ADMISSION: Congestion, shortness of breath, worsening edema, and possible mild pulmonary edema. HISTORY OF PRESENT ILLNESS: The patient is an 82-year-old female, [facility]. The patient noted to have increasing cough and congestion over the past 1 day, also increasing edema. The patient had cellulitic changes as well, both legs. The patient notes that it has gotten worse. The pain is throbbing, 8/10. Denies any chest pain or shortness of breath. Denies any fevers or chills. The patient is on home oxygen, poorly ambulatory. The patient recently at a [facility] due to persistent cellulitis and lack of improvement at home. The patient's care discussed and reviewed. Less short of breath today, no new complaints PAST MEDICAL HISTORY: Hypertension, CHF, pacemaker, chronic lower extremity edema, chronic cellulitic changes, COPD/asthma and chronic congestion. MEDICATIONS: Reviewed. ALLERGIES: Reviewed. SOCIAL HISTORY: Nonsmoker and nondrinker. Lives with her , who is currently ill as well. REVIEW OF SYSTEMS: Positive for poorly ambulatory, chronic edema, chronic shortness of breath and congestion, history of pacemaker, hypertension and history of pulmonary edema. PHYSICAL EXAMINATION: GENERAL: A well-developed female, pleasant, alert. VITAL SIGNS: Vital signs noted and stable, and saturation 94-8%. HEENT: Negative. Extraocular movements are grossly intact. Oropharynx is moist. NECK: Supple. LUNGS: Scattered rhonchi. Occasional crackle both bases. CARDIAC: S1 and S2. Regular rate and rhythm without murmurs, rubs, or gallops. ABDOMEN: Soft, obese, and nontender. EXTREMITIES: There is significant edema, diffusely possibly in the lower extremity. NEUROLOGICAL: Very weak overall. LABORATORY AND DIAGNOSTIC DATA: Lab data reviewed, but most are pending. X-ray reviewed with significant pulmonary edema. EKG noted and reviewed. IMPRESSION: 1. Probable pulmonary edema. 2. Possible underlying respiratory congestion. 3. Possible underlying pneumonia. 4. Pacemaker. 5. Hypertension. 6. Asthma/COPD. 7. Mild pleural effusion. 8. Failure to thrive. RECOMMENDATION: Supportive care. Resume medications. Monitor clinically and recommend further. Diuresis able. Empiric antibiotics and follow clinically for further changes and interventions. Stabilize. Provide respiratory care oxygen and discharge to home once the patient improves. Critical Care - Objective Last 24 Hour Vital Signs Date Time Temp Pulse Resp B/P (MAP) Pulse Ox O2 Delivery O2 Flow Rate FiO2 12/08/17 16:03 83 20 99 Nasal Cannula 2.0 28 12/08/17 16:00 97.6 90 16 109/68 95 97.6 12/08/17 15:55 76 18 99 Nasal Cannula 2.0 12/08/17 11:30 97.6 100 20 116/54 100 97.6 12/08/17 11:20 84 20 99 Nasal Cannula 2.0 28 12/08/17 11:13 74 18 99 Nasal Cannula 2.0 28 12/08/17 09:54 86 20 97 Nasal Cannula 2.0 12/08/17 09:52 86 18 96 Nasal Cannula 2.0 28 12/08/17 08:57 82 149/67 12/08/17 08:17 82 20 99 Nasal Cannula 2.0 12/08/17 08:08 100 Nasal Cannula 2.0 12/08/17 08:08 75 18 99 Nasal Cannula 2.0 12/08/17 08:08 Nasal Cannula 2.0 12/08/17 08:00 97.7 76 20 149/67 100 97.7 12/08/17 04:00 97.8 81 20 133/55 100 97.8 12/08/17 03:02 Nasal Cannula 12/08/17 03:01 Nasal Cannula 12/08/17 00:00 97.2 81 20 134/54 95 97.2 12/07/17 23:11 79 21 100 Nasal Cannula 2.0 12/07/17 23:03 28 12/07/17 23:02 79 21 100 Nasal Cannula 2.0 28 12/07/17 20:23 79 21 100 Nasal Cannula 2.0 28 12/07/17 20:14 76 149/101 12/07/17 20:03 79 21 100 Nasal Cannula 2.0 12/07/17 20:00 97.6 76 20 149/101 95 Nasal Cannula 2.0 97.6 12/07/17 19:52 28 12/07/17 19:52 79 21 100 Nasal Cannula 2.0 12/07/17 19:52 79 21 100 Nasal Cannula 2.0 12/07/17 19:51 Nasal Cannula 2.0 28 12/07/17 19:51 79 21 100 Nasal Cannula 2.0 28 12/07/17 19:47 100 Nasal Cannula 2.0 28 Micro: Microbiology Date/Time Source Procedure Growth Status 12/05/17 18:05 Blood Blood Culture - Preliminary NO GROWTH AFTER 48 HOURS Resulted 12/05/17 17:45 Blood Blood Culture - Preliminary NO GROWTH AFTER 48 HOURS Resulted 12/06/17 01:00 Leg Left Gram Stain - Final Resulted 12/06/17 01:00 Wound Culture - Preliminary A.baumanii Complx - Mdr Diphtheroids Resulted Critical Care - Subjective ROS Limited/Unobtainable: No Condition: improving IV Access: peripheral EKG Rhythm: Sinus Rhythm FI02: 28 Sputum Amount: None I&O: Intake and Output 12/07/17 12/08/17 19:00 07:00 Intake Total 945.0 ml 182.5 ml Output Total 500 ml 450 ml Balance 445.0 ml -267.5 ml Intake Oral 560 ml 100 ml IV Total 385.0 ml 82.5 ml Output Urine Total 500 ml 450 ml # Voids 4 # Bowel Movements 4 Levi Byers M.D. December 08, 2017 17:20
[2017-12-08] MEDS: Montelukast 10mg tablet ORAL SCH (17:25)
[2017-12-08 20:00] VITALS: BP 141/88
[2017-12-09] VITALS: BP 134/69
[2017-12-09] MEDS: Vancomycin 1gm in D5W 275ml IVPB SCH (00:47)
[2017-12-09 04:00] VITALS: BP 131/56
[2017-12-09] MEDS: Albuterol ud Inhalation HHN SCH ×6 (04:03→23:00)
--- NOTE | 2017-12-09 07:32 | General Progress Note ---
Assessment/Plan Problem List: (1) Renal insufficiency ICD Codes: N28.9 - Disorder of kidney and ureter, unspecified SNOMED: 600427812, 077054279 (2) CHF (congestive heart failure) ICD Codes: I50.9 - Heart failure, unspecified SNOMED: 95601489 Qualifiers: Qualified Codes: I50.9 - Heart failure, unspecified (3) Bilateral lower leg cellulitis ICD Codes: L03.116 - Cellulitis of left lower limb; L03.115 - Cellulitis of right lower limb SNOMED: 447743330 (4) Skin cancer ICD Codes: C44.90 - Unspecified malignant neoplasm of skin, unspecified SNOMED: 773016613 Status: stable, progressing Assessment/Plan diuresis iv abx id eval called cxr ordered resp rx monitor labs skin care Subjective ROS Limited/Unobtainable: No Constitutional: Reports: malaise, weakness HEENT: Reports: no symptoms Cardiovascular: Reports: edema Respiratory: Reports: cough, shortness of breath Gastrointestinal/Abdominal: Reports: no symptoms Genitourinary: Reports: no symptoms Neurologic/Psychiatric: Reports: no symptoms Endocrine: Reports: no symptoms Hematologic/Lymphatic: Reports: no symptoms Allergies: Coded Allergies: IODINE (Verified Allergy, Unknown, 12/05/17) POVIDONE-IODINE (Verified Allergy, Unknown, 12/05/17) SOAP (Verified Allergy, Unknown, 12/05/17) All Systems: reviewed and negative except above Subjective no events. still sob. wound culture growing MDR acinetobacter. getting resp rx. no fevers or chills. no new complaints. Objective Last 24 Hour Vital Signs Date Time Temp Pulse Resp B/P (MAP) Pulse Ox O2 Delivery O2 Flow Rate FiO2 12/09/17 04:00 74 18 95 Nasal Cannula 2.0 28 12/09/17 04:00 80 20 97 Nasal Cannula 2.0 28 12/09/17 04:00 97.5 78 20 131/56 96 97.5 12/09/17 00:00 97.9 69 20 134/69 100 97.9 12/08/17 23:30 Nasal Cannula 2.0 28 12/08/17 23:00 Nasal Cannula 2.0 28 12/08/17 20:49 93 141/88 12/08/17 20:00 98.1 93 19 141/88 98 98.1 12/08/17 19:53 88 20 98 Nasal Cannula 2.0 12/08/17 19:53 80 18 96 Nasal Cannula 2.0 12/08/17 19:52 88 20 98 Nasal Cannula 2.0 12/08/17 19:52 Nasal Cannula 2.0 12/08/17 19:52 98 Nasal Cannula 2.0 12/08/17 19:51 80 18 96 Nasal Cannula 2.0 12/08/17 16:03 83 20 99 Nasal Cannula 2.0 12/08/17 16:00 97.6 90 16 109/68 95 97.6 12/08/17 15:55 76 18 99 Nasal Cannula 2.0 12/08/17 11:30 97.6 100 20 116/54 100 97.6 12/08/17 11:20 84 20 99 Nasal Cannula 2.0 12/08/17 11:13 74 18 99 Nasal Cannula 2.0 12/08/17 09:54 86 20 97 Nasal Cannula 2.0 12/08/17 09:52 86 18 96 Nasal Cannula 2.0 12/08/17 08:57 82 149/67 12/08/17 08:17 82 20 99 Nasal Cannula 2.0 12/08/17 08:08 100 Nasal Cannula 2.0 12/08/17 08:08 75 18 99 Nasal Cannula 2.0 12/08/17 08:08 Nasal Cannula 2.0 12/08/17 08:00 97.7 76 20 149/67 100 97.7 Intake and Output 12/08/17 12/09/17 19:00 07:00 Intake Total 500 ml 477.416 ml Balance 500 ml 477.416 ml Intake Oral 500 ml IV Total 477.416 ml # Voids 2 3 Height (Feet): 4 Height (Inches): 9.00 Weight (Pounds): 180 LUBA HERNANDEZ December 09, 2017 07:32
[2017-12-09 08:00] VITALS: BP 128/58
[2017-12-09] MEDS: Advair 250/50 Inhaler - 14 dose INH SCH ×2 (08:28→19:53)
[2017-12-09] MEDS: Aspirin EC 81mg tab ORAL SCH (08:39)
[2017-12-09] MEDS: Premarin tab 0.625MG ORAL SCH (08:39)
[2017-12-09] MEDS: Metoprolol 25mg tab ORAL SCH ×2 (08:39→20:21)
[2017-12-09 08:42] LABS: BASOPHILS % (AUTO) 1.1 % (0.0-2.0); HEMATOCRIT 31.9 % (37.0-47.0); HEMOGLOBIN 10.3 G/DL (12.0-16.0); LYMPHOCYTES % (AUTO) 23.3 % (20.0-45.0); MEAN CORPUSCULAR VOLUME 90 FL (80-99); MONOCYTES % (AUTO) 8.6 % (1.0-10.0); NEUTROPHILS % (AUTO) 64.1 % (45.0-75.0); PLATELET COUNT 219 K/UL (150-450); RED BLOOD COUNT 3.53 M/UL (4.20-5.40); RED CELL DISTRIBUTION WIDTH 15.9 % (11.6-14.8); WHITE BLOOD COUNT 5.5 K/UL (4.8-10.8)
[2017-12-09] MEDS: Piperacillin/Tazobactam 3.375 GM in D5W 110 ML IVPB SCH (08:43)
[2017-12-09] MEDS: Heparin 5000 units/ml inj SUBQ SCH ×2 (08:45→20:22)
[2017-12-09 08:51] LABS: ALANINE AMINOTRANSFERASE 22 U/L (12-78); ALBUMIN 2.2 G/DL (3.4-5.0); ALBUMIN/GLOBULIN RATIO 0.6 (1.0-2.7); ALKALINE PHOSPHATASE 51 U/L (46-116); ANION GAP 4 mmol/L (5-15); ASPARTATE AMINO TRANSFERASE 15 U/L (15-37); BILIRUBIN,TOTAL 0.4 MG/DL (0.2-1.0); BLOOD UREA NITROGEN 23 mg/dL (7-18); CALCIUM 8.5 MG/DL (8.5-10.1); CARBON DIOXIDE 35 MMOL/L (21-32); CHLORIDE 102 MMOL/L (98-107); CREATININE 1.1 MG/DL (0.55-1.30); POTASSIUM 4.2 MMOL/L (3.5-5.1); SODIUM 140 MMOL/L (136-145)
[2017-12-09] MEDS: Triamcinolone 0.1% 15gm Cr TOPIC SCH ×2 (08:53→18:34)
[2017-12-09] MEDS: Pred Forte 1% Opth Susp 1ml RIGHT EYE SCH ×4 (08:53→20:21)
[2017-12-09 12:00] VITALS: BP 128/71
--- NOTE | 2017-12-09 12:00 | Progress Note ---
DATE: 12/07/2017 CARDIOLOGY PROGRESS NOTE SUBJECTIVE: The patient is slightly less short of breath, but still labored. OBJECTIVE: VITAL SIGNS: Blood pressure 127/58, heart rate 64, respiratory rate 20, afebrile, and oxygen saturation 97% to 99% on 2 liters. NECK: Jugular venous pressure elevated. LUNGS: With diminished breath sounds. Expiratory wheezes and rales. HEART: Regular rhythm and rate. Normal S1 and S2 with a 1/6 systolic murmur at apex. ABDOMEN: Soft. EXTREMITIES: With trace dependent edema. LABORATORY AND DIAGNOSTIC DATA: Left leg wound is positive for Acinetobacter. Sodium 144, potassium 4, bicarbonate 33, BUN 20, and creatinine 1.2. Albumin 2.3. Pro-natriuretic peptide yesterday was 1200. IMPRESSION: 1. Acute on chronic systolic and diastolic congestive heart failure. 2. Pneumonia. 3. Permanent pacemaker. 4. Chronic obstructive pulmonary disease. 5. Hypertensive heart disease. 6. Cellulitis, Acinetobacter infection of the skin. PLAN: 1. Antibiotics. 2. Bronchodilators. 3. Diuresis with intravenous loop diuretic. 4. Replace potassium as needed. 5. Antimicrobials per Infectious Disease managed services consultant. 6. DVT prophylaxis. 7. Pacemaker interrogation to follow. Levi Wu M.D. DR: ALCIDES JOB#: [id number] CC:
--- NOTE | 2017-12-09 12:00 | Progress Note ---
DATE: 12/08/2017 CARDIOLOGY PROGRESS NOTE SUBJECTIVE: Shortness of breath is decreasing. The patient is on respiratory therapy and diuretics. OBJECTIVE: VITAL SIGNS: Blood pressure 133/55, pulse 81, respiratory rate 20, afebrile. LUNGS: Bilateral breath sounds. Few rales and expiratory wheezes. HEART: Regular rhythm and rate. Normal S1 and S2. A 1/6 systolic murmur at apex. ABDOMEN: Soft. EXTREMITIES: There is 1+ lower extremity edema. Left leg wound has dressing in place. LABORATORY AND DIAGNOSTIC DATA: No new labs today. IMPRESSION: 1. Acute on chronic systolic and diastolic congestive heart failure. 2. Permanent pacemaker. 3. Hypertensive heart disease. 4. Chronic obstructive pulmonary disease exacerbation. 5. Paroxysmal bronchospasm. 6. Left leg wound with cellulitis. 7. Chronic lower extremity venous insufficiency. 8. Probable pneumonia. 9. Pleural effusion. PLAN: 1. Antimicrobial. 2. Skin care. 3. Diuresis by IV route. 4. Switch to maintenance oral dose upon discharge. 5. Outpatient pacemaker interrogation. 6. Continue current antihypertensive and anti-failure regimen. Levi Wu M.D. DR: ALCIDES JOB#: [id number] CC:
[2017-12-09] MEDS: Minocycline HCl 50mg cap ORAL SCH ×2 (12:27→20:20)
[2017-12-09 16:00] VITALS: BP 122/71
[2017-12-09] MEDS: Montelukast 10mg tablet ORAL SCH (17:21)
[2017-12-09 20:00] VITALS: BP 119/91
--- NOTE | 2017-12-09 21:57 | Pulmonolgy Critical Care Note ---
Critical Care - Asmt/Plan Assessment/Plan: REASON FOR ADMISSION: Congestion, shortness of breath, worsening edema, and possible mild pulmonary edema. HISTORY OF PRESENT ILLNESS: The patient is an 82-year-old female, [facility]. The patient noted to have increasing cough and congestion over the past 1 day, also increasing edema. The patient had cellulitic changes as well, both legs. The patient notes that it has gotten worse. The pain is throbbing, 8/10. Denies any chest pain or shortness of breath. Denies any fevers or chills. The patient is on home oxygen, poorly ambulatory. The [facility] at a [facility] due to persistent cellulitis and lack of improvement at home. The patient's care discussed and reviewed. Less short of breath today, no new complaints PAST MEDICAL HISTORY: Hypertension, CHF, pacemaker, chronic lower extremity edema, chronic cellulitic changes, COPD/asthma and chronic congestion. MEDICATIONS: Reviewed. ALLERGIES: Reviewed. SOCIAL HISTORY: Nonsmoker and nondrinker. Lives with her , who is currently ill as well. REVIEW OF SYSTEMS: Positive for poorly ambulatory, chronic edema, chronic shortness of breath and congestion, history of pacemaker, hypertension and history of pulmonary edema. PHYSICAL EXAMINATION: GENERAL: A well-developed female, pleasant, alert. VITAL SIGNS: Vital signs noted and stable, and saturation 94-8%. HEENT: Negative. Extraocular movements are grossly intact. Oropharynx is moist. NECK: Supple. LUNGS: Scattered rhonchi. Occasional crackle both bases. CARDIAC: S1 and S2. Regular rate and rhythm without murmurs, rubs, or gallops. ABDOMEN: Soft, obese, and nontender. EXTREMITIES: There is significant edema, diffusely possibly in the lower extremity. NEUROLOGICAL: Very weak overall. LABORATORY AND DIAGNOSTIC DATA: Lab data reviewed, but most are pending. X-ray reviewed with significant pulmonary edema. EKG noted and reviewed. IMPRESSION: 1. Probable pulmonary edema. 2. Possible underlying respiratory congestion. 3. Possible underlying pneumonia. 4. Pacemaker. 5. Hypertension. 6. Asthma/COPD. 7. Mild pleural effusion. 8. Failure to thrive. RECOMMENDATION: Supportive care. Continue medications. Monitor clinically and recommend further. Diuresis per Cardiology. Empiric antibiotics and follow clinically for further changes and interventions. Stabilize. Provide respiratory care oxygen and discharge to home once the patient improves. Critical Care - Objective Last 24 Hour Vital Signs Date Time Temp Pulse Resp B/P (MAP) Pulse Ox O2 Delivery O2 Flow Rate FiO2 12/09/17 20:21 89 119/91 12/09/17 20:00 98.2 89 19 119/91 100 98.2 12/09/17 19:55 81 18 98 Nasal Cannula 3.0 32 12/09/17 19:51 77 18 97 Nasal Cannula 2.0 28 12/09/17 19:50 77 18 97 Nasal Cannula 2.0 28 12/09/17 19:50 Nasal Cannula 2.0 28 12/09/17 19:50 96 Nasal Cannula 2.0 28 12/09/17 19:48 77 18 97 Nasal Cannula 2.0 28 12/09/17 16:00 97.9 90 20 122/71 98 Nasal Cannula 2.0 97.9 12/09/17 15:40 86 18 100 Nasal Cannula 3.0 32 12/09/17 15:25 67 18 77 Nasal Cannula 2.0 28 12/09/17 12:05 87 20 92 Nasal Cannula 2.0 28 12/09/17 12:00 98.2 81 21 128/71 99 Nasal Cannula 2.0 98.2 12/09/17 11:55 82 18 99 Nasal Cannula 2.0 28 12/09/17 08:39 85 128/58 12/09/17 08:30 85 18 95 Nasal Cannula 2.0 28 12/09/17 08:28 85 18 95 Nasal Cannula 2.0 28 12/09/17 08:21 95 Nasal Cannula 2.0 28 12/09/17 08:21 Nasal Cannula 2.0 28 12/09/17 08:18 74 16 95 Nasal Cannula 2.0 28 12/09/17 08:18 74 16 95 Nasal Cannula 2.0 28 12/09/17 08:00 97.3 84 19 128/58 96 Nasal Cannula 2.0 97.3 12/09/17 04:00 74 18 95 Nasal Cannula 2.0 28 12/09/17 04:00 80 20 97 Nasal Cannula 2.0 28 12/09/17 04:00 97.5 78 20 131/56 96 97.5 12/09/17 00:00 97.9 69 20 134/69 100 97.9 12/08/17 23:30 Nasal Cannula 2.0 28 12/08/17 23:00 Nasal Cannula 2.0 28 Critical Care - Subjective ROS Limited/Unobtainable: No Condition: improving IV Access: peripheral EKG Rhythm: Sinus Rhythm FI02: 32 Sputum Amount: None I&O: Intake and Output 12/08/17 12/09/17 19:00 07:00 Intake Total 500 ml 477.416 ml Balance 500 ml 477.416 ml Intake Oral 500 ml IV Total 477.416 ml # Voids 2 3 Levi Byers M.D. December 09, 2017 21:57
--- NOTE | 2017-12-09 22:15 | Consultation ---
DATE OF CONSULTATION: 12/09/2017 INFECTIOUS DISEASE CONSULTATION CONSULTING PHYSICIAN: Gordy Joy M.D. This consult is for coverage of Dr. Wolf. PRIMARY ATTENDING PHYSICIAN: Shubham Rivera M.D. REASON FOR CONSULTATION: Leg cellulitis. HISTORY OF PRESENT ILLNESS: This is an 82-year-old white female, admitted on 12/05/2017 complaining of shortness of breath, coughing, congestion, swelling of legs and has some pain in the right leg. The patient had history of skin cancer and recent prolonged hospitalization in [facility]. She had throbbing pain in legs, 8/10 at the time of admission. 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 The patient had multiple surgeries. COPD, asthma, and hypertension. PAST SURGICAL HISTORY: Pacemaker placement, IVC filter placement, hysterectomy, and appendectomy. MEDICATIONS: Getting vancomycin, conjugated estrogen, potassium chloride, Zosyn, atorvastatin, prednisolone acetate eye drops, topical, Singulair, Advair Diskus, Lasix, Protonix, metoprolol, aspirin, albuterol, vancomycin, [place], Tylenol, and Ambien. SOCIAL HISTORY: , lives at home. No history of alcohol, drug abuse, or smoking. Has a grown up child. REVIEW OF SYSTEMS: No fever. No chills. Has productive coughing. No nausea. No vomiting. No diarrhea. Has swelling of the legs that has decreased since admission. PHYSICAL EXAMINATION: VITAL SIGNS: Temperature 97.3, pulse 85, and blood pressure 128/58. GENERAL APPEARANCE: Seems to be obese, awake, alert, and oriented. HEAD AND NECK: Happy conjunctivae. HEART: Regular. Pacemaker in the right side of the chest. LUNGS: Clear. ABDOMEN: Soft, obese. EXTREMITIES: Has edema, erythema. Ulceration is more in the left leg, nontender. LABORATORY AND DIAGNOSTIC DATA: WBC is 5.5, hemoglobin 10.3, hematocrit 31.9, and platelets 219,000. Sodium 140, potassium 4.2, chloride 102, bicarbonate 35, BUN 23, and creatinine 1.1. Albumin 2.2. BNP is 1275. Wound culture from the left leg grew Acinetobacter that is multidrug resistant. It is only sensitive to minocycline, polymyxin, and colistin. IMPRESSION: Cellulitis of legs, more severe in the left side. The patient has chronic obstructive pulmonary disease, asthma, extensive basal and squamous cell carcinoma, multiple skin lesions, congestive heart failure, chronic kidney disease, anemia, and hypertension. RECOMMENDATION: We will change antibiotic to minocycline. At the end of my exam, I thank Dr. Rivera and Dr. Whittington, for involving me in the care of this patient. Gordy Joy M.D. DR: HERBERT JOB#: [id number] CC:
[2017-12-10] VITALS: BP 125/78
[2017-12-10] MEDS: Albuterol ud Inhalation HHN SCH ×8 (02:49→20:22)
--- NOTE | 2017-12-10 03:00 | Progress Note ---
DATE: 12/09/2017 CARDIOLOGY PROGRESS NOTE SUBJECTIVE: The patient still has congestion and shortness of breath. Wound cultures are positive for multi-drug resistant Acinetobacter. The patient's antibiotics have been adjusted. The patient continues on IV diuretic therapy. She has more swelling noted. OBJECTIVE: LUNGS: Bilateral breath sounds. Scattered rhonchi. HEART: Regular rhythm and rate. Normal S1 and S2. ABDOMEN: Soft. EXTREMITIES: With dependent edema. LABORATORY DATA: Potassium 4.2, BUN 23, and creatinine 1.1. Albumin 2.2. White count 5.5 and hemoglobin 10.3. IMPRESSION: 1. Cellulitis with multi-drug resistant pathogen of the wound. 2. Acute on chronic diastolic congestive heart failure. 3. Chronic obstructive pulmonary disease exacerbation. 4. Permanent pacemaker. 5. Healthcare-acquired pneumonia with pleural effusion. 6. Hypertensive heart disease. PLAN: 1. Continue diuresis. 2. Respiratory hygiene. 3. Antimicrobials. 4. Bronchodilators. 5. Supplemental oxygen. 6. DVT prophylaxis. 7. Repeat chest x-ray is pending. 8. Outpatient pacemaker interrogation will be arranged. Levi Wu M.D. DR: ALCIDES JOB#: [id number] CC:
[2017-12-10 04:00] VITALS: BP 128/59
--- NOTE | 2017-12-10 07:52 | General Progress Note ---
Assessment/Plan Problem List: (1) Renal insufficiency ICD Codes: N28.9 - Disorder of kidney and ureter, unspecified SNOMED: 640766497, 482077072 (2) CHF (congestive heart failure) ICD Codes: I50.9 - Heart failure, unspecified SNOMED: 26100001 Qualifiers: Qualified Codes: I50.9 - Heart failure, unspecified (3) Bilateral lower leg cellulitis ICD Codes: L03.116 - Cellulitis of left lower limb; L03.115 - Cellulitis of right lower limb SNOMED: 772403502 (4) Skin cancer ICD Codes: C44.90 - Unspecified malignant neoplasm of skin, unspecified SNOMED: 209559076 Status: stable, progressing Assessment/Plan diuresis per cards po abx id eval appreciated cxr ordered- will follow resp rx monitor labs skin care pt/ot eval refer tp rcbh per pt request Subjective ROS Limited/Unobtainable: No Constitutional: Reports: malaise, weakness HEENT: Reports: no symptoms Respiratory: Reports: cough, shortness of breath, sputum Gastrointestinal/Abdominal: Reports: no symptoms Genitourinary: Reports: no symptoms Neurologic/Psychiatric: Reports: no symptoms Endocrine: Reports: no symptoms Hematologic/Lymphatic: Reports: no symptoms Allergies: Coded Allergies: IODINE (Verified Allergy, Unknown, 12/05/17) POVIDONE-IODINE (Verified Allergy, Unknown, 12/05/17) SOAP (Verified Allergy, Unknown, 12/05/17) All Systems: reviewed and negative except above Subjective no events. weak. worried about . ID appreciated. too weak to go home Objective Last 24 Hour Vital Signs Date Time Temp Pulse Resp B/P (MAP) Pulse Ox O2 Delivery O2 Flow Rate FiO2 12/10/17 04:00 97.3 84 19 128/59 93 97.3 12/10/17 02:49 Nasal Cannula 2.0 28 12/10/17 02:49 Nasal Cannula 2.0 28 12/10/17 00:00 97.9 84 19 125/78 90 97.9 12/09/17 23:39 Nasal Cannula 2.0 28 12/09/17 23:38 Nasal Cannula 2.0 28 12/09/17 20:21 89 119/91 12/09/17 20:00 98.2 89 19 119/91 100 98.2 12/09/17 19:55 81 18 98 Nasal Cannula 3.0 32 12/09/17 19:51 77 18 97 Nasal Cannula 2.0 28 12/09/17 19:50 77 18 97 Nasal Cannula 2.0 28 12/09/17 19:50 Nasal Cannula 2.0 28 12/09/17 19:50 96 Nasal Cannula 2.0 28 12/09/17 19:48 77 18 97 Nasal Cannula 2.0 28 12/09/17 16:00 97.9 90 20 122/71 98 Nasal Cannula 2.0 97.9 12/09/17 15:40 86 18 100 Nasal Cannula 3.0 32 12/09/17 15:25 67 18 77 Nasal Cannula 2.0 28 12/09/17 12:05 87 20 92 Nasal Cannula 2.0 28 12/09/17 12:00 98.2 81 21 128/71 99 Nasal Cannula 2.0 98.2 12/09/17 11:55 82 18 99 Nasal Cannula 2.0 28 12/09/17 08:39 85 128/58 12/09/17 08:30 85 18 95 Nasal Cannula 2.0 28 12/09/17 08:28 85 18 95 Nasal Cannula 2.0 28 12/09/17 08:21 95 Nasal Cannula 2.0 28 12/09/17 08:21 Nasal Cannula 2.0 28 12/09/17 08:18 74 16 95 Nasal Cannula 2.0 28 12/09/17 08:18 74 16 95 Nasal Cannula 2.0 28 12/09/17 08:00 97.3 84 19 128/58 96 Nasal Cannula 2.0 97.3 Intake and Output 12/09/17 12/10/17 19:00 07:00 Intake Total 600 ml 100 ml Balance 600 ml 100 ml Intake Oral 600 ml IV Total 100 ml # Voids 6 6 # Bowel Movements 3 Height (Feet): 4 Height (Inches): 9.00 Weight (Pounds): 180 General Appearance: WD/WN, alert Neck: supple Cardiovascular: normal rate, regular rhythm Respiratory/Chest: lungs clear Abdomen: normal bowel sounds, non tender, soft, no organomegaly Edema: mild edema 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
[2017-12-10 08:00] VITALS: BP 137/74
[2017-12-10] MEDS: Metoprolol 25mg tab ORAL SCH ×2 (08:32→20:54)
[2017-12-10] MEDS: Minocycline HCl 50mg cap ORAL SCH ×2 (08:32→20:54)
[2017-12-10] MEDS: Premarin tab 0.625MG ORAL SCH (08:32)
[2017-12-10] MEDS: Aspirin EC 81mg tab ORAL SCH (08:32)
[2017-12-10] MEDS: Advair 250/50 Inhaler - 14 dose INH SCH ×2 (08:54→20:28)
[2017-12-10] MEDS: Triamcinolone 0.1% 15gm Cr TOPIC SCH ×2 (09:40→17:53)
[2017-12-10] MEDS: Pred Forte 1% Opth Susp 1ml RIGHT EYE SCH ×4 (09:40→20:54)
[2017-12-10] MEDS: Heparin 5000 units/ml inj SUBQ SCH ×2 (09:41→20:56)
--- NOTE | 2017-12-10 10:32 | Diagnostic Imaging Report ---
Indication: Dyspnea Comparison: 12/08/2017 A single view chest radiograph was obtained. Findings: Infiltrate suspected at the right lung base obscuring the right heart border. Correlate clinically. Cardiomegaly is present. Pacemaker noted. Bones are osteopenic. IMPRESSION: Apparent infiltrate right lung base. Correlate for pneumonia
--- NOTE | 2017-12-10 11:32 | Infectious Diseases Prog Note ---
Assessment/Plan Assessment/Plan antibiotics : minocycline A 1. left leg cellulitis with acenitobacter 2. CHF 3. COPD 4. squamous cell carcinoma P 1. continue minocycline 2. will follow up cultures Subjective Constitutional: Denies: fever, chills Respiratory: Denies: shortness of breath, dry cough Gastrointestinal/Abdominal: Denies: nausea, vomiting, diarrhea Musculoskeletal: Reports: pain Allergies: Coded Allergies: IODINE (Verified Allergy, Unknown, 12/05/17) POVIDONE-IODINE (Verified Allergy, Unknown, 12/05/17) SOAP (Verified Allergy, Unknown, 12/05/17) Objective Vital Signs Last 24 Hour Vital Signs Date Time Temp Pulse Resp B/P (MAP) Pulse Ox O2 Delivery O2 Flow Rate FiO2 12/10/17 09:00 106 18 98 Nasal Cannula 2.0 28 12/10/17 08:56 106 18 96 Nasal Cannula 2.0 28 12/10/17 08:55 106 18 96 Nasal Cannula 2.0 28 12/10/17 08:50 106 18 95 Nasal Cannula 2.0 28 12/10/17 08:32 71 137/74 12/10/17 08:00 97.6 71 19 137/74 95 97.6 12/10/17 07:50 Nasal Cannula 12/10/17 07:50 Nasal Cannula 12/10/17 07:45 95 Nasal Cannula 2.0 28 12/10/17 07:45 Nasal Cannula 2.0 28 12/10/17 04:00 97.3 84 19 128/59 93 97.3 12/10/17 02:49 Nasal Cannula 2.0 28 12/10/17 02:49 Nasal Cannula 2.0 28 12/10/17 00:00 97.9 84 19 125/78 90 97.9 12/09/17 23:39 Nasal Cannula 2.0 28 12/09/17 23:38 Nasal Cannula 2.0 28 12/09/17 20:21 89 119/91 12/09/17 20:00 98.2 89 19 119/91 100 98.2 12/09/17 19:55 81 18 98 Nasal Cannula 3.0 32 12/09/17 19:51 77 18 97 Nasal Cannula 2.0 28 12/09/17 19:50 77 18 97 Nasal Cannula 2.0 28 12/09/17 19:50 Nasal Cannula 2.0 28 12/09/17 19:50 96 Nasal Cannula 2.0 28 12/09/17 19:48 77 18 97 Nasal Cannula 2.0 28 12/09/17 16:00 97.9 90 20 122/71 98 Nasal Cannula 2.0 97.9 12/09/17 15:40 86 18 100 Nasal Cannula 3.0 32 12/09/17 15:25 67 18 77 Nasal Cannula 2.0 28 12/09/17 12:05 87 20 92 Nasal Cannula 2.0 28 12/09/17 12:00 98.2 81 21 128/71 99 Nasal Cannula 2.0 98.2 12/09/17 11:55 82 18 99 Nasal Cannula 2.0 28 Height (Feet): 4 Height (Inches): 9.00 Weight (Pounds): 180 Respiratory/Chest: lungs clear Cardiovascular: normal rate, regular rhythm, no gallop/murmur Abdomen: soft, non tender Extremities: other - + edema, left leg ulcer Current Medications Medications (Trade) Dose Ordered Sig/Sachin Route PRN Reason Start Time Stop Time Status Last Admin Dose Admin Acetaminophen (Tylenol) 650 mg Q4H PRN ORAL Mild Pain/Temp > 100.5 12/05/17 21:10 01/04/18 21:09 Acetaminophen/ Hydrocodone Bitart ([place] 5/325) 1 tab Q4H PRN ORAL Moderate Pain (Pain Scale 4-6) 12/05/17 21:16 12/12/17 21:15 Al Hydroxide/Mg Hydroxide (Mylanta) 30 ml Q4H PRN ORAL Nausea & Vomiting 12/05/17 21:11 01/04/18 21:10 Albuterol Sulfate (Proventil) 2.5 mg Q4HRT HHN 12/05/17 23:00 12/10/17 22:59 12/10/17 08:54 Aspirin (Ecotrin) 81 mg DAILY ORAL 12/06/17 09:00 01/05/18 08:59 12/10/17 08:32 Atorvastatin Calcium (Lipitor) 10 mg BEDTIME ORAL 12/06/17 21:00 01/05/18 20:59 12/09/17 20:20 Estrogens Conjugated (Premarin) 0.625 mg DAILY ORAL 12/07/17 09:00 01/06/18 08:59 12/10/17 08:32 Furosemide (Lasix) 40 mg BID IV 12/06/17 09:00 01/05/18 08:59 12/10/17 09:40 Heparin Sodium (Porcine) (Heparin 5000 units/ml) 5,000 units EVERY 12 HOURS SUBQ 12/05/17 21:00 01/04/18 20:59 12/10/17 09:41 Magnesium Hydroxide (Mom) 30 ml DAILYPRN PRN ORAL Constipation 12/05/17 21:11 01/04/18 21:10 Metoprolol Tartrate (Lopressor) 25 mg Q12HR ORAL 12/06/17 09:00 01/05/18 08:59 12/10/17 08:32 Minocycline HCl (Minocin) 100 mg Q12HR ORAL 12/09/17 12:00 12/16/17 11:59 12/10/17 08:32 Montelukast Sodium (Singulair) 10 mg QPM ORAL 12/06/17 16:30 01/05/18 16:29 12/09/17 17:21 Pantoprazole (Protonix) 40 mg DAILY ORAL 12/06/17 09:00 01/05/18 08:59 12/10/17 08:32 Potassium Chloride (K-Dur) 20 meq TWICE A DAY ORAL 12/06/17 23:30 01/05/18 23:29 12/09/17 18:33 Prednisolone Acetate (Pred Forte) 1 drop QID RIGHT EYE 12/06/17 18:00 01/05/18 17:59 12/10/17 09:40 Salmeterol Xinafoate/ Fluticasone (Advair 250/50 Diskus) 1 puffs BIDRT INH 12/06/17 10:00 01/05/18 09:59 12/10/17 08:54 Triamcinolone Acetonide (Kenalog) 1 applic BID TOPIC 12/06/17 18:00 01/05/18 17:59 12/10/17 09:40 Zolpidem Tartrate (Ambien) 5 mg HSPRN PRN ORAL Insomnia 12/05/17 21:00 12/12/17 20:59 DEE DEE RANDHAWA December 10, 2017 11:32
[2017-12-10 12:00] VITALS: BP 125/74
[2017-12-10 16:00] VITALS: BP 128/75
[2017-12-10] MEDS: Montelukast 10mg tablet ORAL SCH (17:52)
[2017-12-10 20:00] VITALS: BP 136/85
--- NOTE | 2017-12-10 22:19 | Pulmonolgy Critical Care Note ---
Critical Care - Asmt/Plan Assessment/Plan: REASON FOR ADMISSION: Congestion, shortness of breath, worsening edema, Pneumonia, pulmonary edema, cellulitis HISTORY OF PRESENT ILLNESS: The patient is an 82-year-old female, [facility]. The patient noted to have increasing cough and congestion over the past 1 day, also increasing edema. The patient had cellulitic changes as well, both legs. The patient notes that it has gotten worse. The pain is throbbing, 8/10. Denies any chest pain or shortness of breath. Denies any fevers or chills. The patient is on home oxygen, poorly ambulatory. The patient recently at a [facility] due to persistent cellulitis and lack of improvement at home. The patient's care discussed and reviewed. Less short of breath today, no new complaints PAST MEDICAL HISTORY: Hypertension, CHF, pacemaker, chronic lower extremity edema, chronic cellulitic changes, COPD/asthma and chronic congestion. MEDICATIONS: Reviewed. ALLERGIES: Reviewed. SOCIAL HISTORY: Nonsmoker and nondrinker. Lives with her , who is currently ill as well. REVIEW OF SYSTEMS: Positive for poorly ambulatory, chronic edema, chronic shortness of breath and congestion, history of pacemaker, hypertension and history of pulmonary edema. PHYSICAL EXAMINATION: GENERAL: A well-developed female, pleasant, alert. VITAL SIGNS: Vital signs noted and stable, and saturation 94-8%. HEENT: Negative. Extraocular movements are grossly intact. Oropharynx is moist. NECK: Supple. LUNGS: Scattered rhonchi. Occasional crackle both bases. CARDIAC: S1 and S2. Regular rate and rhythm without murmurs, rubs, or gallops. ABDOMEN: Soft, obese, and nontender. EXTREMITIES: There is significant edema, diffusely possibly in the lower extremity. NEUROLOGICAL: Very weak overall. LABORATORY AND DIAGNOSTIC DATA: Lab data reviewed, but most are pending. X-ray reviewed with significant pulmonary edema. EKG noted and reviewed. IMPRESSION: 1. Probable pulmonary edema. 2. Possible underlying respiratory congestion. 3. Possible underlying pneumonia, RLL infiltrate 4. Pacemaker. 5. Hypertension. 6. Asthma/COPD. 7. Mild pleural effusion. 8. Failure to thrive. 9. Cellulitis 10. Skin cancer RECOMMENDATION: Supportive care. Continue medications. Monitor clinically and recommend further. Diuresis per Cardiology. Empiric antibiotics and follow clinically for further changes and interventions. Stabilize. Provide respiratory care oxygen and discharge to home once the patient improves. Antibiotics per ID Critical Care - Objective Last 24 Hour Vital Signs Date Time Temp Pulse Resp B/P (MAP) Pulse Ox O2 Delivery O2 Flow Rate FiO2 12/10/17 20:54 99 136/85 12/10/17 20:30 98 18 99 Nasal Cannula 2.0 28 12/10/17 20:27 95 18 97 Nasal Cannula 2.0 28 12/10/17 20:27 97 Nasal Cannula 2.0 28 12/10/17 20:27 Nasal Cannula 2.0 28 12/10/17 20:26 95 18 97 Nasal Cannula 2.0 28 12/10/17 20:22 95 18 97 Nasal Cannula 2.0 28 12/10/17 20:00 98.4 89 22 136/85 99 98.4 12/10/17 17:09 105 18 Nasal Cannula 2.0 12/10/17 17:00 100 18 Nasal Cannula 2.0 12/10/17 16:00 97.0 82 18 128/75 97 97.0 12/10/17 15:50 Nasal Cannula 12/10/17 15:50 Nasal Cannula 12/10/17 13:01 108 18 98 Nasal Cannula 2.0 12/10/17 12:50 101 18 Nasal Cannula 2.0 12/10/17 12:00 97.2 88 16 125/74 98 97.2 12/10/17 11:30 Nasal Cannula 12/10/17 11:30 Nasal Cannula 12/10/17 09:00 106 18 98 Nasal Cannula 2.0 12/10/17 08:56 106 18 96 Nasal Cannula 2.0 12/10/17 08:55 106 18 96 Nasal Cannula 2.0 28 12/10/17 08:50 106 18 95 Nasal Cannula 2.0 28 12/10/17 08:32 71 137/74 12/10/17 08:00 97.6 71 19 137/74 95 97.6 12/10/17 07:50 Nasal Cannula 12/10/17 07:50 Nasal Cannula 12/10/17 07:45 95 Nasal Cannula 2.0 28 12/10/17 07:45 Nasal Cannula 2.0 12/10/17 04:00 97.3 84 19 128/59 93 97.3 12/10/17 02:49 Nasal Cannula 2.0 28 5/8/18 02:49 Nasal Cannula 2.0 28 12/10/17 00:00 97.9 84 19 125/78 90 97.9 12/09/17 23:39 Nasal Cannula 2.0 12/09/17 23:38 Nasal Cannula 2.0 28 Critical Care - Subjective ROS Limited/Unobtainable: No Condition: stable IV Access: peripheral EKG Rhythm: Sinus Rhythm FI02: 28 Sputum Amount: None I&O: Intake and Output 12/09/17 12/10/17 19:00 07:00 Intake Total 600 ml 100 ml Balance 600 ml 100 ml Intake Oral 600 ml IV Total 100 ml # Voids 6 6 # Bowel Movements 3 Levi Byers M.D. December 10, 2017 22:19
[2017-12-11] VITALS: BP 122/76
[2017-12-11 04:00] VITALS: BP 143/58
[2017-12-11 08:00] VITALS: BP 154/57
--- NOTE | 2017-12-11 08:11 | General Progress Note ---
Assessment/Plan Problem List: (1) Renal insufficiency ICD Codes: N28.9 - Disorder of kidney and ureter, unspecified SNOMED: 267383394, 047672086 (2) CHF (congestive heart failure) ICD Codes: I50.9 - Heart failure, unspecified SNOMED: 00031698 Qualifiers: Qualified Codes: I50.9 - Heart failure, unspecified (3) Bilateral lower leg cellulitis ICD Codes: L03.116 - Cellulitis of left lower limb; L03.115 - Cellulitis of right lower limb SNOMED: 235628939 (4) Skin cancer ICD Codes: C44.90 - Unspecified malignant neoplasm of skin, unspecified SNOMED: 216025609 (5) Sepsis ICD Codes: A41.9 - Sepsis, unspecified organism SNOMED: 56461179 (6) Acute respiratory failure ICD Codes: J96.00 - Acute respiratory failure, unspecified whether with hypoxia or hypercapnia SNOMED: 63149122 (7) CAP (community acquired pneumonia) ICD Codes: J18.9 - Pneumonia, unspecified organism SNOMED: 344597483 Status: stable, not improved Assessment/Plan diuresis per cards po abx id eval appreciated cxr with pna- will check sputum culture resp rx monitor labs skin care pt/ot eval refer tp rcbh per pt request Subjective ROS Limited/Unobtainable: No Constitutional: Reports: malaise, weakness HEENT: Reports: no symptoms Cardiovascular: Reports: no symptoms Respiratory: Reports: SOB with excertion, sputum, wheezing Gastrointestinal/Abdominal: Reports: no symptoms Genitourinary: Reports: no symptoms Neurologic/Psychiatric: Reports: no symptoms Endocrine: Reports: no symptoms Hematologic/Lymphatic: Reports: no symptoms Allergies: Coded Allergies: IODINE (Verified Allergy, Unknown, 12/05/17) POVIDONE-IODINE (Verified Allergy, Unknown, 12/05/17) SOAP (Verified Allergy, Unknown, 12/05/17) All Systems: reviewed and negative except above Subjective no events. weak. still with sob. "too sick" to go home. requesting ecf or aru. cxr from yesterday shows pna Objective Last 24 Hour Vital Signs Date Time Temp Pulse Resp B/P (MAP) Pulse Ox O2 Delivery O2 Flow Rate FiO2 12/11/17 04:00 98.1 76 20 143/58 95 98.1 12/11/17 00:00 98.3 83 20 122/76 95 98.3 12/10/17 23:01 96 18 Nasal Cannula 2.0 12/10/17 20:54 99 136/85 12/10/17 20:30 98 18 99 Nasal Cannula 2.0 28 12/10/17 20:27 95 18 97 Nasal Cannula 2.0 28 12/10/17 20:27 97 Nasal Cannula 2.0 12/10/17 20:27 Nasal Cannula 2.0 28 12/10/17 20:26 95 18 97 Nasal Cannula 2.0 28 12/10/17 20:22 95 18 97 Nasal Cannula 2.0 28 12/10/17 20:00 98.4 89 22 136/85 99 98.4 12/10/17 17:09 105 18 Nasal Cannula 2.0 12/10/17 17:00 100 18 Nasal Cannula 2.0 12/10/17 16:00 97.0 82 18 128/75 97 97.0 12/10/17 15:50 Nasal Cannula 12/10/17 15:50 Nasal Cannula 12/10/17 13:01 108 18 98 Nasal Cannula 2.0 12/10/17 12:50 101 18 Nasal Cannula 2.0 12/10/17 12:00 97.2 88 16 125/74 98 97.2 12/10/17 11:30 Nasal Cannula 12/10/17 11:30 Nasal Cannula 12/10/17 09:00 106 18 98 Nasal Cannula 2.0 12/10/17 08:56 106 18 96 Nasal Cannula 2.0 12/10/17 08:55 106 18 96 Nasal Cannula 2.0 12/10/17 08:50 106 18 95 Nasal Cannula 2.0 12/10/17 08:32 71 137/74 Intake and Output 12/10/17 12/11/17 19:00 07:00 Intake Total 1100 ml Output Total 800 ml Balance 300 ml Intake Oral 1100 ml Output Urine Total 800 ml # Voids 6 3 # Bowel Movements 4 1 Height (Feet): 4 Height (Inches): 9.00 Weight (Pounds): 232 Objective General Appearance: WD/WN, alert Neck: supple Cardiovascular: normal rate, regular rhythm Respiratory/Chest: lungs clear Abdomen: normal bowel sounds, non tender, soft, no organomegaly Edema: mild edema 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
[2017-12-11 08:30] LABS: BASOPHILS % (AUTO) 1.4 % (0.0-2.0); EOSINOPHILS % (AUTO) 3.2 % (0.0-3.0); HEMATOCRIT 31.8 % (37.0-47.0); HEMOGLOBIN 10.6 G/DL (12.0-16.0); LYMPHOCYTES % (AUTO) 28.1 % (20.0-45.0); MEAN CORPUSCULAR VOLUME 90 FL (80-99); MONOCYTES % (AUTO) 9.1 % (1.0-10.0); NEUTROPHILS % (AUTO) 58.1 % (45.0-75.0); PLATELET COUNT 213 K/UL (150-450); RED BLOOD COUNT 3.54 M/UL (4.20-5.40); RED CELL DISTRIBUTION WIDTH 15.9 % (11.6-14.8); WHITE BLOOD COUNT 5.5 K/UL (4.8-10.8)
[2017-12-11 08:57] LABS: ALANINE AMINOTRANSFERASE 25 U/L (12-78); ALBUMIN 2.3 G/DL (3.4-5.0); ALBUMIN/GLOBULIN RATIO 0.6 (1.0-2.7); ALKALINE PHOSPHATASE 61 U/L (46-116); ANION GAP 3 mmol/L (5-15); ASPARTATE AMINO TRANSFERASE 24 U/L (15-37); BILIRUBIN,TOTAL 0.4 MG/DL (0.2-1.0); BLOOD UREA NITROGEN 36 mg/dL (7-18); CALCIUM 8.9 MG/DL (8.5-10.1); CARBON DIOXIDE 33 MMOL/L (21-32); CHLORIDE 102 MMOL/L (98-107); CREATININE 1.3 MG/DL (0.55-1.30); POTASSIUM 4.4 MMOL/L (3.5-5.1); SODIUM 138 MMOL/L (136-145)
--- NOTE | 2017-12-11 09:45 | Progress Note ---
DATE: 12/10/2017 CARDIOLOGY PROGRESS NOTE SUBJECTIVE: The patient has no new complaints. She has less shortness of breath. She remained quite weak and unable to take care of herself at home. OBJECTIVE: VITAL SIGNS: Blood pressure 128/59, pulse 84, and respiratory rate 19. Afebrile. Oxygen saturation is 90% to 93% on 2 liters. LUNGS: With coarse breath sounds and rales. No wheezing. CARDIAC: Regular rhythm and rate. Normal S1, paradoxically split S2. ABDOMEN: Soft. EXTREMITIES: Trace edema. Lower extremity cellulitis slightly improved. LABORATORY DATA: White count 5.5, hemoglobin 10.3. Potassium 4.2, BUN 23, creatinine 1.1. Magnesium 1.7. Pro-natriuretic peptide 1275. Albumin 2.2. IMPRESSION: 1. Acute on chronic systolic and diastolic congestive heart failure. 2. Healthcare-acquired pneumonia. 3. Permanent pacemaker. 4. Chronic obstructive pulmonary disease with bronchospasm. 5. Hypertensive heart disease. 6. Pleural effusion. 7. Cellulitis. 8. Chronic venous stasis. PLAN: 1. Antimicrobials. 2. Bronchodilators and respiratory hygiene. 3. Ongoing diuresis. 4. Titration of antihypertensive and anti-failure regimen based on clinical parameters. 5. Outpatient pacemaker interrogation. 6. DVT prophylaxis. Levi Wu M.D. DR: KARMA JOB#: [id number] CC:
[2017-12-11] MEDS: Metoprolol 25mg tab ORAL SCH ×2 (09:48→20:36)
[2017-12-11] MEDS: Premarin tab 0.625MG ORAL SCH (09:49)
[2017-12-11] MEDS: Minocycline HCl 50mg cap ORAL SCH ×2 (09:49→20:35)
[2017-12-11] MEDS: Aspirin EC 81mg tab ORAL SCH (09:49)
[2017-12-11] MEDS: Heparin 5000 units/ml inj SUBQ SCH (09:50)
[2017-12-11] MEDS: Pred Forte 1% Opth Susp 1ml RIGHT EYE SCH ×5 (09:51→20:35)
[2017-12-11] MEDS: Triamcinolone 0.1% 15gm Cr TOPIC SCH ×2 (09:52→17:14)
[2017-12-11] MEDS: Advair 250/50 Inhaler - 14 dose INH SCH ×2 (11:35→20:55)
[2017-12-11 12:00] VITALS: BP 116/75
[2017-12-11] MEDS: Albuterol/Ipratropium 3ml neb HHN PRN ×2 (13:38→20:54)
--- NOTE | 2017-12-11 14:14 | Infectious Diseases Prog Note ---
Assessment/Plan Assessment/Plan 1. left leg cellulitis with acenitobacter 2. CHF 3. COPD 4. squamous cell carcinoma P 1. continue minocycline Subjective ROS Limited/Unobtainable: No Respiratory: Reports: productive cough Gastrointestinal/Abdominal: Reports: no symptoms Genitourinary: Reports: no symptoms Skin: Reports: no symptoms Allergies: Coded Allergies: IODINE (Verified Allergy, Unknown, 12/05/17) POVIDONE-IODINE (Verified Allergy, Unknown, 12/05/17) SOAP (Verified Allergy, Unknown, 12/05/17) Objective Vital Signs Last 24 Hour Vital Signs Date Time Temp Pulse Resp B/P (MAP) Pulse Ox O2 Delivery O2 Flow Rate FiO2 12/11/17 13:53 84 20 100 Nasal Cannula 2.0 12/11/17 13:38 120 22 90 Room Air 12/11/17 12:52 96 Nasal Cannula 2.0 12/11/17 12:00 98.7 86 20 116/75 Nasal Cannula 2.0 98.7 12/11/17 11:47 116 20 98 Nasal Cannula 2.0 12/11/17 11:35 115 20 98 Nasal Cannula 2.0 28 12/11/17 11:05 Nasal Cannula 2.0 28 12/11/17 11:04 98 Nasal Cannula 2.0 28 12/11/17 09:48 65 154/57 12/11/17 08:00 97.7 65 17 154/57 100 Nasal Cannula 97.7 12/11/17 04:00 98.1 76 20 143/58 95 98.1 12/11/17 00:00 98.3 83 20 122/76 95 98.3 12/10/17 23:01 96 18 Nasal Cannula 2.0 12/10/17 20:54 99 136/85 12/10/17 20:30 98 18 99 Nasal Cannula 2.0 28 12/10/17 20:27 95 18 97 Nasal Cannula 2.0 28 12/10/17 20:27 97 Nasal Cannula 2.0 28 12/10/17 20:27 Nasal Cannula 2.0 28 12/10/17 20:26 95 18 97 Nasal Cannula 2.0 28 12/10/17 20:22 95 18 97 Nasal Cannula 2.0 28 12/10/17 20:00 98.4 89 22 136/85 99 98.4 12/10/17 17:09 105 18 Nasal Cannula 2.0 28 12/10/17 17:00 100 18 Nasal Cannula 2.0 28 12/10/17 16:00 97.0 82 18 128/75 97 97.0 12/10/17 15:50 Nasal Cannula 12/10/17 15:50 Nasal Cannula Height (Feet): 4 Height (Inches): 9.00 Weight (Pounds): 232 General Appearance: no acute distress HEENT: mucous membranes moist Respiratory/Chest: lungs clear, other - Kyphosis Cardiovascular: normal rate Abdomen: soft, non tender Extremities: other - edema of legs Skin: ulcers, other - in left lef Neurologic/Psychiatric: alert, oriented x 3, responsive Laboratory Tests Test 12/11/17 06:55 White Blood Count 5.5 K/UL (4.8-10.8) Red Blood Count 3.54 M/UL (4.20-5.40) L Hemoglobin 10.6 G/DL (12.0-16.0) L Hematocrit 31.8 % (37.0-47.0) L Mean Corpuscular Volume 90 FL (80-99) Mean Corpuscular Hemoglobin 29.8 PG (27.0-31.0) Mean Corpuscular Hemoglobin Concent 33.2 G/DL (32.0-36.0) Red Cell Distribution Width 15.9 % (11.6-14.8) H Platelet Count 213 K/UL (150-450) Mean Platelet Volume 7.7 FL (6.5-10.1) Neutrophils (%) (Auto) 58.1 % (45.0-75.0) Lymphocytes (%) (Auto) 28.1 % (20.0-45.0) Monocytes (%) (Auto) 9.1 % (1.0-10.0) Eosinophils (%) (Auto) 3.2 % (0.0-3.0) H Basophils (%) (Auto) 1.4 % (0.0-2.0) Sodium Level 138 MMOL/L (136-145) Potassium Level 4.4 MMOL/L (3.5-5.1) Chloride Level 102 MMOL/L (98-107) Carbon Dioxide Level 33 MMOL/L (21-32) H Anion Gap 3 mmol/L (5-15) L Blood Urea Nitrogen 36 mg/dL (7-18) H Creatinine 1.3 MG/DL (0.55-1.30) Estimat Glomerular Filtration Rate mL/min (>60) Glucose Level 95 MG/DL (74-106) Calcium Level 8.9 MG/DL (8.5-10.1) Total Bilirubin 0.4 MG/DL (0.2-1.0) Aspartate Amino Transf (AST/SGOT) 24 U/L (15-37) Alanine Aminotransferase (ALT/SGPT) 25 U/L (12-78) Alkaline Phosphatase 61 U/L (46-116) Total Protein 6.4 G/DL (6.4-8.2) Albumin 2.3 G/DL (3.4-5.0) L Globulin 4.1 g/dL Albumin/Globulin Ratio 0.6 (1.0-2.7) L Current Medications Medications (Trade) Dose Ordered Sig/Sachin Route PRN Reason Start Time Stop Time Status Last Admin Dose Admin Acetaminophen (Tylenol) 650 mg Q4H PRN ORAL Mild Pain/Temp > 100.5 12/05/17 21:10 01/04/18 21:09 Acetaminophen/ Hydrocodone Bitart ([place] 5/325) 1 tab Q4H PRN ORAL Moderate Pain (Pain Scale 4-6) 12/05/17 21:16 12/12/17 21:15 Al Hydroxide/Mg Hydroxide (Mylanta) 30 ml Q4H PRN ORAL Nausea & Vomiting 12/05/17 21:11 01/04/18 21:10 Albuterol/ Ipratropium (Albuterol/ Ipratropium) 3 ml Q4H PRN HHN Shortness of Breath 12/11/17 12:45 12/16/17 12:44 12/11/17 13:38 Aspirin (Ecotrin) 81 mg DAILY ORAL 12/06/17 09:00 01/05/18 08:59 12/11/17 09:49 Atorvastatin Calcium (Lipitor) 10 mg BEDTIME ORAL 12/06/17 21:00 01/05/18 20:59 12/10/17 20:53 Estrogens Conjugated (Premarin) 0.625 mg DAILY ORAL 12/07/17 09:00 01/06/18 08:59 12/11/17 09:49 Furosemide (Lasix) 40 mg BID IV 12/06/17 09:00 01/05/18 08:59 12/11/17 09:48 Heparin Sodium (Porcine) (Heparin 5000 units/ml) 5,000 units EVERY 12 HOURS SUBQ 12/05/17 21:00 01/04/18 20:59 12/11/17 09:50 Magnesium Hydroxide (Mom) 30 ml DAILYPRN PRN ORAL Constipation 12/05/17 21:11 01/04/18 21:10 Metoprolol Tartrate (Lopressor) 25 mg Q12HR ORAL 12/06/17 09:00 01/05/18 08:59 12/11/17 09:48 Minocycline HCl (Minocin) 100 mg Q12HR ORAL 12/09/17 12:00 12/16/17 11:59 12/11/17 09:49 Montelukast Sodium (Singulair) 10 mg QPM ORAL 12/06/17 16:30 01/05/18 16:29 12/10/17 17:52 Pantoprazole (Protonix) 40 mg DAILY ORAL 12/06/17 09:00 01/05/18 08:59 12/11/17 09:49 Potassium Chloride (K-Dur) 20 meq TWICE A DAY ORAL 12/06/17 23:30 01/05/18 23:29 12/11/17 09:49 Prednisolone Acetate (Pred Forte) 1 drop QID RIGHT EYE 12/06/17 18:00 01/05/18 17:59 12/11/17 13:34 Salmeterol Xinafoate/ Fluticasone (Advair 250/50 Diskus) 1 puffs BIDRT INH 12/06/17 10:00 01/05/18 09:59 12/11/17 11:35 Triamcinolone Acetonide (Kenalog) 1 applic BID TOPIC 12/06/17 18:00 01/05/18 17:59 12/11/17 09:52 Zolpidem Tartrate (Ambien) 5 mg HSPRN PRN ORAL Insomnia 12/05/17 21:00 12/12/17 20:59 LUDIVINA BRITO December 11, 2017 14:14
[2017-12-11 15:58] VITALS: BP 95/66
--- NOTE | 2017-12-11 16:33 | Cardiology Report ---
APPROVED REPORT EKG Measurement Heart [id number] OR [id number] [id number] Normal sinus rhythm Low voltage QRS Cannot rule out Anterior infarct, age undetermined Abnormal ECG
[2017-12-11] MEDS: Montelukast 10mg tablet ORAL SCH (19:17)
[2017-12-11 20:00] VITALS: BP 114/94
--- NOTE | 2017-12-11 22:37 | Pulmonolgy Critical Care Note ---
Critical Care - Asmt/Plan Assessment/Plan: REASON FOR ADMISSION: Congestion, shortness of breath, worsening edema, Pneumonia RLL, pulmonary edema, Acinetobacter cellulitis HISTORY OF PRESENT ILLNESS: The patient is an 82-year-old female, recently discharged from the skilled nursing. The patient noted to have increasing cough and congestion over the past 1 day, also increasing edema. The patient had cellulitic changes as well, both legs. The patient notes that it has gotten worse. The pain is throbbing, 8/10. Denies any chest pain or shortness of breath. Denies any fevers or chills. The patient is on home oxygen, poorly ambulatory. The patient recently at a skilled nursing due to persistent cellulitis and lack of improvement at home. The patient's care discussed and reviewed. Less short of breath today, no new complaints PAST MEDICAL HISTORY: Hypertension, CHF, pacemaker, chronic lower extremity edema, chronic cellulitic changes, COPD/asthma and chronic congestion. MEDICATIONS: Reviewed. ALLERGIES: Reviewed. SOCIAL HISTORY: Nonsmoker and nondrinker. Lives with her , who is currently ill as well. REVIEW OF SYSTEMS: Positive for poorly ambulatory, chronic edema, chronic shortness of breath and congestion, history of pacemaker, hypertension and history of pulmonary edema. PHYSICAL EXAMINATION: GENERAL: A well-developed female, pleasant, alert. VITAL SIGNS: Vital signs noted and stable, and saturation 94-8%. HEENT: Negative. Extraocular movements are grossly intact. Oropharynx is moist. NECK: Supple. LUNGS: Scattered rhonchi. Occasional crackle both bases. CARDIAC: S1 and S2. Regular rate and rhythm without murmurs, rubs, or gallops. ABDOMEN: Soft, obese, and nontender. EXTREMITIES: There is significant edema, diffusely possibly in the lower extremity. NEUROLOGICAL: Very weak overall. LABORATORY AND DIAGNOSTIC DATA: Lab data reviewed, but most are pending. X-ray reviewed with significant pulmonary edema. EKG noted and reviewed. IMPRESSION: 1. Probable pulmonary edema. 2. Possible underlying respiratory congestion. 3. Possible underlying pneumonia, RLL infiltrate 4. Pacemaker. 5. Hypertension. 6. Asthma/COPD. 7. Mild pleural effusion. 8. Failure to thrive. 9. Cellulitis 10. Skin cancer RECOMMENDATION: Supportive care. Continue medications. Monitor clinically and recommend further. Diuresis per Cardiology. Empiric antibiotics and follow clinically for further changes and interventions. Stabilize. Provide respiratory care oxygen and discharge to home once the patient improves. Antibiotics per ID Critical Care - Objective Last 24 Hour Vital Signs Date Time Temp Pulse Resp B/P (MAP) Pulse Ox O2 Delivery O2 Flow Rate FiO2 12/11/17 21:10 74 18 98 Nasal Cannula 2.0 28 12/11/17 21:10 74 18 98 Nasal Cannula 2.0 28 12/11/17 21:06 74 18 98 Nasal Cannula 2.0 28 12/11/17 20:58 Nasal Cannula 2.0 28 12/11/17 20:57 97 Nasal Cannula 2.0 28 12/11/17 20:56 68 20 97 Nasal Cannula 2.0 12/11/17 20:36 68 114/94 12/11/17 20:00 99.4 68 18 114/94 95 99.4 12/11/17 15:58 98.6 84 20 95/66 97 Room Air 98.6 12/11/17 13:53 84 20 100 Nasal Cannula 2.0 12/11/17 13:38 120 22 90 Room Air 12/11/17 12:52 96 Nasal Cannula 2.0 12/11/17 12:00 98.7 86 20 116/75 Nasal Cannula 2.0 98.7 12/11/17 11:47 116 20 98 Nasal Cannula 2.0 12/11/17 11:35 115 20 98 Nasal Cannula 2.0 12/11/17 11:05 Nasal Cannula 2.0 28 12/11/17 11:04 98 Nasal Cannula 2.0 28 12/11/17 09:48 65 154/57 12/11/17 08:00 97.7 65 17 154/57 100 Nasal Cannula 97.7 12/11/17 04:00 98.1 76 20 143/58 95 98.1 12/11/17 00:00 98.3 83 20 122/76 95 98.3 12/10/17 23:01 96 18 Nasal Cannula 2.0 28 Critical Care - Subjective ROS Limited/Unobtainable: No Condition: stable EKG Rhythm: Sinus Rhythm FI02: 28 Sputum Amount: None I&O: Intake and Output 12/10/17 12/11/17 19:00 07:00 Intake Total 1100 ml Output Total 800 ml Balance 300 ml Intake Oral 1100 ml Output Urine Total 800 ml # Voids 6 3 # Bowel Movements 4 1 Balfe,Levi M.D. December 11, 2017 22:37
[2017-12-11] MEDS: Albuterol/Ipratropium 3ml neb HHN SCH (23:49)
[2017-12-12] VITALS: BP 139/63
[2017-12-12] MEDS: Albuterol/Ipratropium 3ml neb HHN SCH ×6 (03:59→23:53)
[2017-12-12 04:00] VITALS: BP 142/64
--- NOTE | 2017-12-12 04:00 | Progress Note ---
DATE: 12/05/2017 CARDIOLOGY PROGRESS NOTE SUBJECTIVE: The patient remains with some shortness of breath, but overall improved. She is not able to mobilize adequately due to this for self-care at home. OBJECTIVE: VITAL SIGNS: Blood pressure is 143/58, heart rate 76, and respirations 20. LUNGS: With bilateral rales. CARDIAC: Regular rhythm and rate. Normal S1, S2. ABDOMEN: Soft. EXTREMITIES: Trace edema. LABORATORY DATA: White count 5.5 and hemoglobin 10.6. BUN 36 creatinine 1.3. Potassium 4.4 and albumin 2.3. Chest x-ray from yesterday revealed right lung basilar infiltrate. IMPRESSION: 1. Healthcare-acquired pneumonia. 2. Paroxysmal bronchospasm. 3. Acute on chronic diastolic congestive heart failure, clinically compensated. 4. Permanent pacemaker. 5. Hypertensive heart disease. 6. Pleural effusion, resolved. PLAN: 1. Antimicrobials. 2. Bronchodilators. 3. Respiratory hygiene. 4. Maintenance diuretic. 5. Outpatient pacemaker interrogation. 6. DVT prophylaxis. 7. Monitor volume status and cardiorenal parameters and adjust therapy accordingly. Levi Wu M.D. DR: MADHU JOB#: [id number] CC:
[2017-12-12 08:00] VITALS: BP 134/71
[2017-12-12] MEDS: Premarin tab 0.625MG ORAL SCH (08:32)
[2017-12-12] MEDS: Aspirin EC 81mg tab ORAL SCH (08:33)
[2017-12-12] MEDS: Metoprolol 25mg tab ORAL SCH ×2 (08:34→21:33)
[2017-12-12] MEDS: Minocycline HCl 50mg cap ORAL SCH ×2 (08:41→21:33)
--- NOTE | 2017-12-12 08:41 | General Progress Note ---
Assessment/Plan Problem List: (1) Renal insufficiency ICD Codes: N28.9 - Disorder of kidney and ureter, unspecified SNOMED: 406545921, 420694282 (2) CHF (congestive heart failure) ICD Codes: I50.9 - Heart failure, unspecified SNOMED: 21726820 Qualifiers: Qualified Codes: I50.9 - Heart failure, unspecified (3) Bilateral lower leg cellulitis ICD Codes: L03.116 - Cellulitis of left lower limb; L03.115 - Cellulitis of right lower limb SNOMED: 013580673 (4) Skin cancer ICD Codes: C44.90 - Unspecified malignant neoplasm of skin, unspecified SNOMED: 329316441 (5) Sepsis ICD Codes: A41.9 - Sepsis, unspecified organism SNOMED: 84012198 (6) Acute respiratory failure ICD Codes: J96.00 - Acute respiratory failure, unspecified whether with hypoxia or hypercapnia SNOMED: 74691730 (7) CAP (community acquired pneumonia) ICD Codes: J18.9 - Pneumonia, unspecified organism SNOMED: 012540201 Status: stable, progressing Assessment/Plan diuresis per cards po abx id eval appreciated cxr with pna- will check sputum culture resp rx monitor labs skin care pt/ot eval refer tp rcbh per pt request will admit if he agrees Subjective ROS Limited/Unobtainable: No Constitutional: Reports: malaise, weakness HEENT: Reports: no symptoms Cardiovascular: Reports: chest pain Respiratory: Reports: cough, shortness of breath, wheezing Gastrointestinal/Abdominal: Reports: no symptoms Genitourinary: Reports: no symptoms Neurologic/Psychiatric: Reports: no symptoms Endocrine: Reports: no symptoms Hematologic/Lymphatic: Reports: no symptoms Allergies: Coded Allergies: IODINE (Verified Allergy, Unknown, 12/05/17) POVIDONE-IODINE (Verified Allergy, Unknown, 12/05/17) SOAP (Verified Allergy, Unknown, 12/05/17) All Systems: reviewed and negative except above Subjective no events. weak. still with sob. worried about having "a lot of diarrhea." state craig is "very sick" and needs to be admitted. Objective Last 24 Hour Vital Signs Date Time Temp Pulse Resp B/P (MAP) Pulse Ox O2 Delivery O2 Flow Rate FiO2 12/12/17 07:22 79 18 100 Nasal Cannula 2.0 12/12/17 07:22 79 18 100 Nasal Cannula 2.0 12/12/17 07:15 78 18 98 Nasal Cannula 2.0 12/12/17 07:15 78 18 98 Nasal Cannula 2.0 12/12/17 07:15 98 Nasal Cannula 2.0 12/12/17 07:15 Nasal Cannula 2.0 12/12/17 04:00 97.4 86 19 142/64 98 Nasal Cannula 2.0 97.4 12/12/17 03:59 86 16 98 Nasal Cannula 2.0 12/12/17 03:50 84 20 96 Nasal Cannula 2.0 12/12/17 00:00 98.5 83 21 139/63 100 Nasal Cannula 2.0 98.5 12/11/17 23:58 78 16 98 Nasal Cannula 2.0 12/11/17 23:51 76 18 96 Nasal Cannula 2.0 12/11/17 21:10 74 18 98 Nasal Cannula 2.0 12/11/17 21:10 74 18 98 Nasal Cannula 2.0 12/11/17 21:06 74 18 98 Nasal Cannula 2.0 12/11/17 20:58 Nasal Cannula 2.0 12/11/17 20:57 97 Nasal Cannula 2.0 12/11/17 20:56 68 20 97 Nasal Cannula 2.0 12/11/17 20:36 68 114/94 12/11/17 20:00 99.4 68 18 114/94 95 99.4 12/11/17 15:58 98.6 84 20 95/66 97 Room Air 98.6 12/11/17 13:53 84 20 100 Nasal Cannula 2.0 12/11/17 13:38 120 22 90 Room Air 12/11/17 12:52 96 Nasal Cannula 2.0 12/11/17 12:00 98.7 86 20 116/75 Nasal Cannula 2.0 98.7 12/11/17 11:47 116 20 98 Nasal Cannula 2.0 12/11/17 11:35 115 20 98 Nasal Cannula 2.0 12/11/17 11:05 Nasal Cannula 2.0 12/11/17 11:04 98 Nasal Cannula 2.0 12/11/17 09:48 65 154/57 Intake and Output 12/11/17 12/12/17 19:00 07:00 Intake Total 480 ml 720 ml Balance 480 ml 720 ml Intake Oral 480 ml 720 ml # Voids 3 2 # Bowel Movements 2 Height (Feet): 4 Height (Inches): 9.00 Weight (Pounds): 232 Objective General Appearance: WD/WN, alert Neck: supple Cardiovascular: normal rate, regular rhythm Respiratory/Chest: lungs clear Abdomen: normal bowel sounds, non tender, soft, no organomegaly Edema: mild edema 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
[2017-12-12] MEDS: Pred Forte 1% Opth Susp 1ml RIGHT EYE SCH ×4 (08:42→21:34)
[2017-12-12] MEDS: Triamcinolone 0.1% 15gm Cr TOPIC SCH ×2 (08:42→18:07)
[2017-12-12] MEDS: Advair 250/50 Inhaler - 14 dose INH SCH ×2 (10:00→22:00)
[2017-12-12 10:12] LABS: ANION GAP 10 mmol/L (5-15); BLOOD UREA NITROGEN 45 mg/dL (7-18); CARBON DIOXIDE 24 MMOL/L (21-32); CHLORIDE 100 MMOL/L (98-107); CREATININE 1.4 MG/DL (0.55-1.30); POTASSIUM 5.3 MMOL/L (3.5-5.1); SODIUM 134 MMOL/L (136-145)
--- NOTE | 2017-12-12 11:57 | Diagnostic Imaging Report ---
INDICATION: COPD COMPARISON: None FINDINGS: Single frontal view demonstrates a normal cardiomediastinal silhouette. Right chest wall pacemaker with leads in place. Right pericardiac opacity. No pleural effusions. The visualized osseous structures are within normal limits. IMPRESSION: Right chest wall pacemaker with leads in place. Right pericardiac opacity.
[2017-12-12 12:00] VITALS: BP 111/65
--- NOTE | 2017-12-12 14:13 | Infectious Diseases Prog Note ---
Assessment/Plan Assessment/Plan 1. left leg cellulitis with Acetobacter 2. CHF 3. COPD 4. 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 continue minocycline X 1 week Subjective ROS Limited/Unobtainable: No Constitutional: Reports: no symptoms Respiratory: Reports: shortness of breath, productive cough, other - not significantly changed since admission Musculoskeletal: Reports: swelling Allergies: Coded Allergies: IODINE (Verified Allergy, Unknown, 12/05/17) POVIDONE-IODINE (Verified Allergy, Unknown, 12/05/17) SOAP (Verified Allergy, Unknown, 12/05/17) Objective Vital Signs Last 24 Hour Vital Signs Date Time Temp Pulse Resp B/P (MAP) Pulse Ox O2 Delivery O2 Flow Rate FiO2 12/12/17 11:36 82 18 100 Nasal Cannula 2.0 12/12/17 11:28 80 18 98 Nasal Cannula 2.0 12/12/17 08:34 87 134/71 12/12/17 08:00 98.1 87 20 134/71 98 Nasal Cannula 3.0 98.1 12/12/17 07:22 79 18 100 Nasal Cannula 2.0 12/12/17 07:22 79 18 100 Nasal Cannula 2.0 12/12/17 07:15 78 18 98 Nasal Cannula 2.0 12/12/17 07:15 78 18 98 Nasal Cannula 2.0 12/12/17 07:15 98 Nasal Cannula 2.0 12/12/17 07:15 Nasal Cannula 2.0 28 12/12/17 04:00 97.4 86 19 142/64 98 Nasal Cannula 2.0 97.4 12/12/17 03:59 86 16 98 Nasal Cannula 2.0 12/12/17 03:50 84 20 96 Nasal Cannula 2.0 12/12/17 00:00 98.5 83 21 139/63 100 Nasal Cannula 2.0 98.5 12/11/17 23:58 78 16 98 Nasal Cannula 2.0 12/11/17 23:51 76 18 96 Nasal Cannula 2.0 12/11/17 21:10 74 18 98 Nasal Cannula 2.0 28 12/11/17 21:10 74 18 98 Nasal Cannula 2.0 28 12/11/17 21:06 74 18 98 Nasal Cannula 2.0 28 12/11/17 20:58 Nasal Cannula 2.0 28 12/11/17 20:57 97 Nasal Cannula 2.0 28 12/11/17 20:56 68 20 97 Nasal Cannula 2.0 12/11/17 20:36 68 114/94 12/11/17 20:00 99.4 68 18 114/94 95 99.4 12/11/17 15:58 98.6 84 20 95/66 97 Room Air 98.6 Height (Feet): 4 Height (Inches): 9.00 Weight (Pounds): 232 General Appearance: no acute distress, other - obese HEENT: mucous membranes moist Respiratory/Chest: lungs clear Cardiovascular: normal rate Abdomen: soft, non tender Extremities: other - edema of legs Skin: rash, ulcers, other - bruises Neurologic/Psychiatric: alert, oriented x 3, responsive Laboratory Tests Test 12/12/17 09:50 Sodium Level 134 MMOL/L (136-145) L Potassium Level 5.3 MMOL/L (3.5-5.1) H Chloride Level 100 MMOL/L (98-107) Carbon Dioxide Level 24 MMOL/L (21-32) Anion Gap 10 mmol/L (5-15) Blood Urea Nitrogen 45 mg/dL (7-18) H Creatinine 1.4 MG/DL (0.55-1.30) H Estimat Glomerular Filtration Rate mL/min (>60) Glucose Level 136 MG/DL (74-106) H Calcium Level 9.0 MG/DL (8.5-10.1) Magnesium Level 1.9 MG/DL (1.8-2.4) Current Medications Medications (Trade) Dose Ordered Sig/Sachin Route PRN Reason Start Time Stop Time Status Last Admin Dose Admin Acetaminophen (Tylenol) 650 mg Q4H PRN ORAL Mild Pain/Temp > 100.5 12/05/17 21:10 01/04/18 21:09 Acetaminophen/ Hydrocodone Bitart ([place] 5/325) 1 tab Q4H PRN ORAL Moderate Pain (Pain Scale 4-6) 12/05/17 21:16 12/12/17 21:15 Al Hydroxide/Mg Hydroxide (Mylanta) 30 ml Q4H PRN ORAL Nausea & Vomiting 12/05/17 21:11 01/04/18 21:10 Albuterol/ Ipratropium (Albuterol/ Ipratropium) 3 ml Q4H PRN HHN Shortness of Breath 12/11/17 12:45 12/16/17 12:44 12/11/17 20:54 Albuterol/ Ipratropium (Albuterol/ Ipratropium) 3 ml Q4HRT HHN 12/11/17 23:00 12/16/17 22:59 12/12/17 11:39 Aspirin (Ecotrin) 81 mg DAILY ORAL 12/06/17 09:00 01/05/18 08:59 12/12/17 08:33 Atorvastatin Calcium (Lipitor) 10 mg BEDTIME ORAL 12/06/17 21:00 01/05/18 20:59 12/11/17 20:35 Diphenhydramine HCl (Benadryl) 50 mg Q4HR PRN ORAL Itching 12/11/17 16:30 01/10/18 16:29 12/12/17 04:17 Estrogens Conjugated (Premarin) 0.625 mg DAILY ORAL 12/07/17 09:00 01/06/18 08:59 12/12/17 08:32 Furosemide (Lasix) 40 mg DAILY IV 12/12/17 09:00 01/11/18 08:59 12/12/17 08:41 Magnesium Hydroxide (Mom) 30 ml DAILYPRN PRN ORAL Constipation 12/05/17 21:11 01/04/18 21:10 Metoprolol Tartrate (Lopressor) 25 mg Q12HR ORAL 12/06/17 09:00 01/05/18 08:59 12/12/17 08:34 Minocycline HCl (Minocin) 100 mg Q12HR ORAL 12/09/17 12:00 12/16/17 11:59 12/12/17 08:41 Montelukast Sodium (Singulair) 10 mg QPM ORAL 12/06/17 16:30 01/05/18 16:29 12/11/17 19:17 Pantoprazole (Protonix) 40 mg DAILY ORAL 12/06/17 09:00 01/05/18 08:59 12/12/17 08:33 Potassium Chloride (K-Dur) 20 meq DAILY ORAL 12/12/17 09:00 01/11/18 08:59 12/12/17 08:32 Prednisolone Acetate (Pred Forte) 1 drop QID RIGHT EYE 12/06/17 18:00 01/05/18 17:59 12/12/17 13:07 Salmeterol Xinafoate/ Fluticasone (Advair 250/50 Diskus) 1 puffs BIDRT INH 12/06/17 10:00 01/05/18 09:59 12/11/17 20:55 Triamcinolone Acetonide (Kenalog) 1 applic BID TOPIC 12/06/17 18:00 01/05/18 17:59 12/12/17 08:42 Zolpidem Tartrate (Ambien) 5 mg HSPRN PRN ORAL Insomnia 12/05/17 21:00 12/12/17 20:59 LUDIVINA BRITO December 12, 2017 14:13
[2017-12-12 16:00] VITALS: BP 109/56
[2017-12-12] MEDS: Montelukast 10mg tablet ORAL SCH (18:06)
[2017-12-12 20:00] VITALS: BP 124/58
--- NOTE | 2017-12-12 21:15 | Progress Note ---
DATE: 12/12/2017 CARDIOLOGY PROGRESS NOTE SUBJECTIVE: The patient still has shortness of breath. She is quite anxious. She has concern about her ill . She denies chest pain. OBJECTIVE: VITAL SIGNS: Blood pressure 142/64, heart rate 86, respirations 19, and afebrile. LUNGS: Bilateral breath sounds with rhonchi, but no wheezing. HEART: Regular rhythm and rate. Normal S1 and S2. A 1/6 systolic murmur at apex. ABDOMEN: Soft. EXTREMITIES: 1+ edema. LABORATORY DATA: Sodium 134, potassium 5.3, BUN 45, and creatinine 1.4. IMPRESSION: 1. Acute on chronic kidney insufficiency due to diuresis. 2. Chronic obstructive pulmonary disease exacerbation. 3. Pneumonia. 4. Acute on chronic diastolic and systolic congestive heart failure, now compensated. 5. Left leg cellulitis. 6. Permanent pacemaker. 7. Paroxysmal atrial fibrillation. 8. Chronic venous insufficiency with lower extremity edema. PLAN: 1. Diuretic dose decreased to oral therapy and held today and restart tomorrow. Maintenance dosing. 2. Continue antimicrobials. 3. Continue bronchodilators. 4. Continue respiratory hygiene. 5. DVT prophylaxis. Levi Wu M.D. DR: MADHU JOB#: [id number] CC:
--- NOTE | 2017-12-12 23:29 | Pulmonolgy Critical Care Note ---
Critical Care - Asmt/Plan Assessment/Plan: REASON FOR ADMISSION: Congestion, shortness of breath, worsening edema, Pneumonia RLL, pulmonary edema, Acinetobacter cellulitis HISTORY OF PRESENT ILLNESS: The patient is an 82-year-old female, recently discharged from the [facility]. The patient noted to have increasing cough and congestion over the past 1 day, also increasing edema. The patient had cellulitic changes as well, both legs. Denies any chest pain or shortness of breath. Denies any fevers or chills. The patient is on home oxygen, poorly ambulatory. The patient recently at a [facility] due to persistent cellulitis and lack of improvement at home. The patient's care discussed and reviewed. Less short of breath today, no new complaints PAST MEDICAL HISTORY: Hypertension, CHF, pacemaker, chronic lower extremity edema, chronic cellulitic changes, COPD/asthma and chronic congestion. MEDICATIONS: Reviewed. ALLERGIES: Reviewed. SOCIAL HISTORY: Nonsmoker and nondrinker. Lives with her , who is currently ill as well. REVIEW OF SYSTEMS: Positive for poorly ambulatory, chronic edema, chronic shortness of breath and congestion, history of pacemaker, hypertension and history of pulmonary edema. PHYSICAL EXAMINATION: GENERAL: A well-developed female, pleasant, alert. VITAL SIGNS: Vital signs noted and stable, and saturation 94-8%. HEENT: Negative. Extraocular movements are grossly intact. Oropharynx is moist. NECK: Supple. LUNGS: Scattered rhonchi. Occasional crackle both bases. CARDIAC: S1 and S2. Regular rate and rhythm without murmurs, rubs, or gallops. ABDOMEN: Soft, obese, and nontender. EXTREMITIES: There is significant edema, diffusely possibly in the lower extremity. NEUROLOGICAL: Very weak overall. LABORATORY AND DIAGNOSTIC DATA: Lab data reviewed, but most are pending. X-ray reviewed with significant pulmonary edema. EKG noted and reviewed. IMPRESSION: 1. Probable pulmonary edema. 2. Possible underlying respiratory congestion. 3. Possible underlying pneumonia, RLL infiltrate 4. Pacemaker. 5. Hypertension. 6. Asthma/COPD. 7. Mild pleural effusion. 8. Failure to thrive. 9. Cellulitis 10. Skin cancer RECOMMENDATION: Supportive care. Continue medications. Monitor clinically and recommend further. Diuresis per Cardiology. Empiric antibiotics and follow clinically for further changes and interventions. Stabilize. Provide respiratory care oxygen and discharge to home once the patient improves. Antibiotics per ID Critical Care - Objective Last 24 Hour Vital Signs Date Time Temp Pulse Resp B/P (MAP) Pulse Ox O2 Delivery O2 Flow Rate FiO2 12/12/17 21:33 65 124/58 12/12/17 20:00 98.6 65 20 124/58 96 98.6 12/12/17 19:57 79 20 96 Nasal Cannula 2.0 28 12/12/17 18:07 81 19 98 Nasal Cannula 2.0 28 12/12/17 16:00 97.3 59 20 109/56 100 Nasal Cannula 3.0 97.3 12/12/17 15:38 80 18 100 Nasal Cannula 2.0 28 12/12/17 15:30 79 18 97 Nasal Cannula 2.0 28 12/12/17 12:00 97.7 85 20 111/65 97 Room Air 97.7 12/12/17 11:36 82 18 100 Nasal Cannula 2.0 12/12/17 11:28 80 18 98 Nasal Cannula 2.0 12/12/17 08:34 87 134/71 12/12/17 08:00 98.1 87 20 134/71 98 Nasal Cannula 3.0 98.1 12/12/17 07:22 79 18 100 Nasal Cannula 2.0 12/12/17 07:22 79 18 100 Nasal Cannula 2.0 12/12/17 07:15 78 18 98 Nasal Cannula 2.0 12/12/17 07:15 78 18 98 Nasal Cannula 2.0 12/12/17 07:15 98 Nasal Cannula 2.0 12/12/17 07:15 Nasal Cannula 2.0 12/12/17 04:00 97.4 86 19 142/64 98 Nasal Cannula 2.0 97.4 12/12/17 03:59 86 16 98 Nasal Cannula 2.0 12/12/17 03:50 84 20 96 Nasal Cannula 2.0 12/12/17 00:00 98.5 83 21 139/63 100 Nasal Cannula 2.0 98.5 12/11/17 23:58 78 16 98 Nasal Cannula 2.0 12/11/17 23:51 76 18 96 Nasal Cannula 2.0 Critical Care - Subjective ROS Limited/Unobtainable: No Condition: stable EKG Rhythm: Sinus Rhythm FI02: 28 Sputum Amount: None I&O: Intake and Output 12/11/17 12/12/17 19:00 07:00 Intake Total 480 ml 720 ml Balance 480 ml 720 ml Intake Oral 480 ml 720 ml # Voids 3 2 # Bowel Movements 2 Levi Byers M.D. December 12, 2017 23:28
[2017-12-13] VITALS: BP 122/52
--- NOTE | 2017-12-13 00:15 | Consultation ---
DATE OF CONSULTATION: 12/05/2017 CARDIOLOGY CONSULTATION CONSULTING PHYSICIAN: Levi Wu M.D. REQUESTING PHYSICIAN: 1. Shubham Rivera M.D. 2. Jf Whittington M.D. REASON FOR CONSULTATION: Congestive heart failure exacerbation. HISTORY OF PRESENT ILLNESS: This is an 82-year-old female. She has had increasing cough and congestion for the past day and concomitantly leg swelling. She has redness and heat sensation over both legs as well. She has an open wound site on the left leg. She has not had any chest pain. She has not had any sputum production. She recently was at a [facility] facility for treatment of cellulitis, but was discharged home. PAST MEDICAL HISTORY: 1. Permanent pacemaker. 2. Diastolic dysfunction with congestive heart failure. 3. Chronic venous stasis and lower extremity edema. 4. Hypertensive heart disease. 5. Chronic obstructive pulmonary disease. 6. Chronic bronchitis. MEDICATIONS: Reviewed and reconciled. ALLERGIES: Include iodine and povidone. SOCIAL HISTORY: Negative for smoking or alcohol use. FAMILY HISTORY: Noncontributory. REVIEW OF SYSTEMS: A 10-point review of systems performed. All systems negative other than noted above. The patient does not recall when she last had her pacemaker interrogated, but thinks it was before her recent illness. PHYSICAL EXAMINATION: VITAL SIGNS: Blood pressure 130/72, heart rate 86, respirations 20, and afebrile. Oxygen saturation on 2 liters is 97%. HEENT: Normocephalic and atraumatic. Conjunctivae pink. Sclerae are anicteric. Hearing in without impairment. NECK: Supple. There is accessory muscle use. No adenopathy. LUNGS: Coarse breath sounds. Rhonchi. No wheezing. CARDIAC: Regular rhythm and rate. Normal S1 and S2. ABDOMEN: Soft. EXTREMITIES: A 2+ dependent edema, left leg greater than right leg with erythema, warmth, and there is an indurated area with drainage. LABORATORY DATA: White count 9 and hemoglobin 11.1. Sodium 139, potassium 4.5, bicarbonate 33, BUN 32, and creatinine 1.5. Lactic acid 2. Pro-natriuretic peptide is 1300. EKG reveals sinus rhythm, low voltage, possible anterior infarction of indeterminate age. Chest x-ray reveals pulmonary venous congestion and congestive heart failure. IMPRESSION: 1. Acute on chronic diastolic congestive heart failure. 2. Possible healthcare-acquired pneumonia. 3. Paroxysmal bronchospasm. 4. Paroxysmal atrial fibrillation. 5. Permanent pacemaker. 6. Hypertensive heart disease. 7. Bilateral lower extremity cellulitis. PLAN: 1. Cardiac monitoring. 2. Serial lactic acid and natriuretic peptide assays as well as troponin level. 3. Intravenous diuresis. 4. Inhaled bronchodilators. 5. Nasal oxygen. 6. DVT prophylaxis. 7. Monitor cardiorenal parameters. 8. Review echocardiogram. 9. The patient is high risk and will be closely monitored with changes in plan of care to follow. Levi Wu M.D. DR: MADHU JOB#: [id number] CC:
[2017-12-13] MEDS: Albuterol/Ipratropium 3ml neb HHN SCH ×6 (03:08→23:55)
[2017-12-13 04:00] VITALS: BP 137/55
[2017-12-13 07:51] LABS: ANION GAP 7 mmol/L (5-15); BLOOD UREA NITROGEN 57 mg/dL (7-18); CARBON DIOXIDE 31 MMOL/L (21-32); CHLORIDE 103 MMOL/L (98-107); CREATININE 1.4 MG/DL (0.55-1.30); POTASSIUM 4.7 MMOL/L (3.5-5.1); SODIUM 141 MMOL/L (136-145)
[2017-12-13 08:20] VITALS: BP 144/62
[2017-12-13] MEDS: Aspirin EC 81mg tab ORAL SCH (09:39)
[2017-12-13] MEDS: Premarin tab 0.625MG ORAL SCH (09:39)
[2017-12-13] MEDS: Metoprolol 25mg tab ORAL SCH ×2 (09:40→20:49)
[2017-12-13] MEDS: Minocycline HCl 50mg cap ORAL SCH ×2 (09:40→20:49)
[2017-12-13] MEDS: Triamcinolone 0.1% 15gm Cr TOPIC SCH ×2 (09:41→17:29)
[2017-12-13] MEDS: Pred Forte 1% Opth Susp 1ml RIGHT EYE SCH ×4 (09:42→20:50)
[2017-12-13] MEDS: Advair 250/50 Inhaler - 14 dose INH SCH ×2 (09:56→19:49)
--- NOTE | 2017-12-13 10:44 | Infectious Diseases Prog Note ---
Assessment/Plan Assessment/Plan antibiotics : minocycline A 1. left leg cellulitis with acenitobacter 2. CHF 3. COPD 4. squamous cell carcinoma 5. gram negative pneumonia P 1. continue minocycline 2. start zosyn 3. will follow up cultures Subjective Constitutional: Denies: fever, chills Respiratory: Denies: shortness of breath Gastrointestinal/Abdominal: Denies: nausea, vomiting, diarrhea Musculoskeletal: Reports: pain - in legs Allergies: Coded Allergies: IODINE (Verified Allergy, Unknown, 12/05/17) POVIDONE-IODINE (Verified Allergy, Unknown, 12/05/17) SOAP (Verified Allergy, Unknown, 12/05/17) Objective Vital Signs Last 24 Hour Vital Signs Date Time Temp Pulse Resp B/P (MAP) Pulse Ox O2 Delivery O2 Flow Rate FiO2 12/13/17 09:56 76 18 98 Nasal Cannula 2.0 28 12/13/17 09:56 76 18 97 Nasal Cannula 2.0 28 12/13/17 09:40 67 144/62 12/13/17 08:20 98.9 67 18 144/62 100 Room Air 98.9 12/13/17 07:52 80 18 97 Nasal Cannula 2.0 28 12/13/17 07:43 76 18 97 Nasal Cannula 2.0 28 12/13/17 07:43 Nasal Cannula 2.0 28 12/13/17 07:43 Nasal Cannula 12/13/17 07:43 97 Nasal Cannula 2.0 28 12/13/17 04:00 97.5 82 20 137/55 95 97.5 12/13/17 04:00 97 Nasal Cannula 2.0 12/13/17 03:15 86 20 98 Nasal Cannula 2.0 28 12/13/17 03:08 84 18 97 Nasal Cannula 2.0 28 12/13/17 00:03 86 18 98 12/13/17 00:00 98.3 80 20 122/52 100 98.3 12/13/17 00:00 100 Nasal Cannula 2.0 12/12/17 23:53 86 18 95 Nasal Cannula 2.0 28 12/12/17 23:00 86 18 98 Nasal Cannula 2.0 28 12/12/17 21:37 Nasal Cannula 2.0 28 12/12/17 21:37 98 Nasal Cannula 2.0 28 12/12/17 21:37 64 18 98 Nasal Cannula 2.0 28 12/12/17 21:33 65 124/58 12/12/17 20:35 68 18 98 Nasal Cannula 2.0 28 12/12/17 20:00 98.6 65 20 124/58 96 98.6 12/12/17 20:00 96 Nasal Cannula 2.0 12/12/17 19:57 79 20 96 Nasal Cannula 2.0 28 12/12/17 18:07 81 19 98 Nasal Cannula 2.0 28 12/12/17 16:00 97.3 59 20 109/56 100 Nasal Cannula 3.0 97.3 12/12/17 15:38 80 18 100 Nasal Cannula 2.0 28 12/12/17 15:30 79 18 97 Nasal Cannula 2.0 28 12/12/17 12:00 97.7 85 20 111/65 97 Room Air 97.7 12/12/17 11:36 82 18 100 Nasal Cannula 2.0 28 12/12/17 11:28 80 18 98 Nasal Cannula 2.0 28 Height (Feet): 4 Height (Inches): 9.00 Weight (Pounds): 232 Respiratory/Chest: lungs clear Cardiovascular: normal rate, regular rhythm, no gallop/murmur Abdomen: soft, non tender Extremities: other - + edema, left leg erythema decreasing Microbiology Date/Time Source Procedure Growth Status 12/11/17 13:30 Sputum Expectorated Gram Stain Pending Resulted 12/11/17 13:30 Sputum Culture - Preliminary Gram Negative Bacillus 1 Gram Negative Bacillus 2 Resulted Laboratory Tests Test 12/13/17 06:10 Sodium Level 141 MMOL/L (136-145) Potassium Level 4.7 MMOL/L (3.5-5.1) Chloride Level 103 MMOL/L (98-107) Carbon Dioxide Level 31 MMOL/L (21-32) Anion Gap 7 mmol/L (5-15) Blood Urea Nitrogen 57 mg/dL (7-18) H Creatinine 1.4 MG/DL (0.55-1.30) H Estimat Glomerular Filtration Rate mL/min (>60) Glucose Level 102 MG/DL (74-106) Calcium Level 9.0 MG/DL (8.5-10.1) Magnesium Level 2.2 MG/DL (1.8-2.4) Pro-B-Type Natriuretic Peptide 1215 pg/mL (0-125) H Current Medications Medications (Trade) Dose Ordered Sig/Sachin Route PRN Reason Start Time Stop Time Status Last Admin Dose Admin Acetaminophen (Tylenol) 650 mg Q4H PRN ORAL Mild Pain/Temp > 100.5 12/05/17 21:10 01/04/18 21:09 Al Hydroxide/Mg Hydroxide (Mylanta) 30 ml Q4H PRN ORAL Nausea & Vomiting 12/05/17 21:11 01/04/18 21:10 Albuterol/ Ipratropium (Albuterol/ Ipratropium) 3 ml Q4H PRN HHN Shortness of Breath 12/11/17 12:45 12/16/17 12:44 12/11/17 20:54 Albuterol/ Ipratropium (Albuterol/ Ipratropium) 3 ml Q4HRT HHN 12/11/17 23:00 12/16/17 22:59 12/13/17 07:43 Aspirin (Ecotrin) 81 mg DAILY ORAL 12/06/17 09:00 01/05/18 08:59 12/13/17 09:39 Atorvastatin Calcium (Lipitor) 10 mg BEDTIME ORAL 12/06/17 21:00 01/05/18 20:59 12/12/17 21:32 Diphenhydramine HCl (Benadryl) 50 mg Q4HR PRN ORAL Itching 12/11/17 16:30 01/10/18 16:29 12/13/17 00:16 Estrogens Conjugated (Premarin) 0.625 mg DAILY ORAL 12/07/17 09:00 01/06/18 08:59 12/13/17 09:39 Magnesium Hydroxide (Mom) 30 ml DAILYPRN PRN ORAL Constipation 12/05/17 21:11 01/04/18 21:10 Metoprolol Tartrate (Lopressor) 25 mg Q12HR ORAL 12/06/17 09:00 01/05/18 08:59 12/13/17 09:40 Minocycline HCl (Minocin) 100 mg Q12HR ORAL 12/09/17 12:00 12/16/17 11:59 12/13/17 09:40 Montelukast Sodium (Singulair) 10 mg QPM ORAL 12/06/17 16:30 01/05/18 16:29 5/10/18 18:06 Pantoprazole (Protonix) 40 mg DAILY ORAL 12/06/17 09:00 01/05/18 08:59 12/13/17 09:39 Prednisolone Acetate (Pred Forte) 1 drop QID RIGHT EYE 12/06/17 18:00 01/05/18 17:59 12/13/17 09:42 Salmeterol Xinafoate/ Fluticasone (Advair 250/50 Diskus) 1 puffs BIDRT INH 12/06/17 10:00 01/05/18 09:59 12/13/17 09:56 Triamcinolone Acetonide (Kenalog) 1 applic BID TOPIC 12/06/17 18:00 01/05/18 17:59 12/13/17 09:41 DEE DEE RANDHAWA December 13, 2017 10:44
--- NOTE | 2017-12-13 11:50 | General Progress Note ---
Assessment/Plan Problem List: (1) Renal insufficiency ICD Codes: N28.9 - Disorder of kidney and ureter, unspecified SNOMED: 889590515, 778868344 (2) CHF (congestive heart failure) ICD Codes: I50.9 - Heart failure, unspecified SNOMED: 16908823 Qualifiers: Qualified Codes: I50.9 - Heart failure, unspecified (3) Bilateral lower leg cellulitis ICD Codes: L03.116 - Cellulitis of left lower limb; L03.115 - Cellulitis of right lower limb SNOMED: 965116368 (4) Skin cancer ICD Codes: C44.90 - Unspecified malignant neoplasm of skin, unspecified SNOMED: 871059645 (5) Sepsis ICD Codes: A41.9 - Sepsis, unspecified organism SNOMED: 16651372 (6) Acute respiratory failure ICD Codes: J96.00 - Acute respiratory failure, unspecified whether with hypoxia or hypercapnia SNOMED: 74744428 (7) CAP (community acquired pneumonia) ICD Codes: J18.9 - Pneumonia, unspecified organism SNOMED: 387922742 Status: stable, progressing Assessment/Plan hold lasix monitor renal fxn/labs resp rx mucinex po abx pt/ot elevated legs skin care Subjective ROS Limited/Unobtainable: No Constitutional: Reports: malaise, weakness HEENT: Reports: no symptoms Cardiovascular: Reports: no symptoms Respiratory: Reports: cough Gastrointestinal/Abdominal: Reports: no symptoms Genitourinary: Reports: no symptoms Neurologic/Psychiatric: Reports: no symptoms Endocrine: Reports: no symptoms Hematologic/Lymphatic: Reports: no symptoms Allergies: Coded Allergies: IODINE (Verified Allergy, Unknown, 12/05/17) POVIDONE-IODINE (Verified Allergy, Unknown, 12/05/17) SOAP (Verified Allergy, Unknown, 12/05/17) All Systems: reviewed and negative except above Subjective c/o congestion. feels like she can get her secretions up. no fever or chills. no cp. Objective Last 24 Hour Vital Signs Date Time Temp Pulse Resp B/P (MAP) Pulse Ox O2 Delivery O2 Flow Rate FiO2 12/13/17 09:56 76 18 98 Nasal Cannula 2.0 28 12/13/17 09:56 76 18 97 Nasal Cannula 2.0 28 12/13/17 09:40 67 144/62 12/13/17 08:20 98.9 67 18 144/62 100 Room Air 98.9 12/13/17 07:52 80 18 97 Nasal Cannula 2.0 28 12/13/17 07:43 76 18 97 Nasal Cannula 2.0 28 12/13/17 07:43 Nasal Cannula 2.0 28 12/13/17 07:43 Nasal Cannula 12/13/17 07:43 97 Nasal Cannula 2.0 28 12/13/17 04:00 97.5 82 20 137/55 95 97.5 12/13/17 04:00 97 Nasal Cannula 2.0 12/13/17 03:15 86 20 98 Nasal Cannula 2.0 28 12/13/17 03:08 84 18 97 Nasal Cannula 2.0 28 12/13/17 00:03 86 18 98 12/13/17 00:00 98.3 80 20 122/52 100 98.3 12/13/17 00:00 100 Nasal Cannula 2.0 12/12/17 23:53 86 18 95 Nasal Cannula 2.0 28 12/12/17 23:00 86 18 98 Nasal Cannula 2.0 28 12/12/17 21:37 Nasal Cannula 2.0 28 12/12/17 21:37 98 Nasal Cannula 2.0 28 12/12/17 21:37 64 18 98 Nasal Cannula 2.0 12/12/17 21:33 65 124/58 12/12/17 20:35 68 18 98 Nasal Cannula 2.0 28 12/12/17 20:00 98.6 65 20 124/58 96 98.6 12/12/17 20:00 96 Nasal Cannula 2.0 12/12/17 19:57 79 20 96 Nasal Cannula 2.0 28 12/12/17 18:07 81 19 98 Nasal Cannula 2.0 28 12/12/17 16:00 97.3 59 20 109/56 100 Nasal Cannula 3.0 97.3 12/12/17 15:38 80 18 100 Nasal Cannula 2.0 28 12/12/17 15:30 79 18 97 Nasal Cannula 2.0 28 12/12/17 12:00 97.7 85 20 111/65 97 Room Air 97.7 Intake and Output 12/12/17 12/13/17 19:00 07:00 Intake Total 240 ml Output Total 700 ml Balance 240 ml -700 ml Intake Oral 240 ml Output Urine Total 700 ml # Voids 5 1 # Bowel Movements 4 Laboratory Tests 12/13/17 06:10: Sodium Level 141, Potassium Level 4.7, Chloride Level 103, Carbon Dioxide Level 31, Anion Gap 7, Blood Urea Nitrogen 57H, Creatinine 1.4H, Estimat Glomerular Filtration Rate , Glucose Level 102, Calcium Level 9.0, Magnesium Level 2.2, Pro -B-Type Natriuretic Peptide 1215H Height (Feet): 4 Height (Inches): 9.00 Weight (Pounds): 232 Objective General Appearance: WD/WN, alert Neck: supple Cardiovascular: normal rate, regular rhythm Respiratory/Chest: lungs clear Abdomen: normal bowel sounds, non tender, soft, no organomegaly Edema: mild edema Neurologic: manager business continuity II-XII grossly normal, no motor/sensory deficits, abnormal gait , alert, oriented x 3, responsive LUBA HERNANDEZ December 13, 2017 11:50
[2017-12-13 12:00] VITALS: BP 109/79
[2017-12-13] MEDS: Piperacillin/Tazobactam 3.375 GM in D5W 110 ML IVPB SCH ×2 (13:30→22:06)
[2017-12-13] MEDS ORDERED: Furosemide 40mg tab ORAL SCH (14:45)
[2017-12-13 16:00] VITALS: BP 128/50
[2017-12-13] MEDS: Montelukast 10mg tablet ORAL SCH (16:55)
[2017-12-13 20:00] VITALS: BP 119/54
--- NOTE | 2017-12-13 20:35 | Pulmonolgy Critical Care Note ---
Critical Care - Asmt/Plan Assessment/Plan: REASON FOR ADMISSION: Congestion, shortness of breath, worsening edema, Pneumonia RLL, pulmonary edema, Acinetobacter cellulitis HISTORY OF PRESENT ILLNESS: The patient is an 82-year-old female, recently discharged from the [facility]. The patient noted to have increasing cough and congestion over the past 1 day, also increasing edema. The patient had cellulitic changes as well, both legs. Denies any chest pain or shortness of breath. Denies any fevers or chills. The patient is on home oxygen, poorly ambulatory. The patient recently at a [facility] due to persistent cellulitis and lack of improvement at home. The patient's care discussed and reviewed. Less short of breath today, no new complaints PAST MEDICAL HISTORY: Hypertension, CHF, pacemaker, chronic lower extremity edema, chronic cellulitic changes, COPD/asthma and chronic congestion. MEDICATIONS: Reviewed. ALLERGIES: Reviewed. SOCIAL HISTORY: Nonsmoker and nondrinker. Lives with her , who is currently ill as well. REVIEW OF SYSTEMS: Positive for poorly ambulatory, chronic edema, chronic shortness of breath and congestion, history of pacemaker, hypertension and history of pulmonary edema. PHYSICAL EXAMINATION: GENERAL: A well-developed female, pleasant, alert. VITAL SIGNS: Vital signs noted and stable, and saturation 94-8%. HEENT: Negative. Extraocular movements are grossly intact. Oropharynx is moist. NECK: Supple. LUNGS: Scattered rhonchi. Occasional crackle both bases. CARDIAC: S1 and S2. Regular rate and rhythm without murmurs, rubs, or gallops. ABDOMEN: Soft, obese, and nontender. EXTREMITIES: There is significant edema, diffusely possibly in the lower extremity. NEUROLOGICAL: Very weak overall. LABORATORY AND DIAGNOSTIC DATA: Lab data reviewed, but most are pending. X-ray reviewed with significant pulmonary edema. EKG noted and reviewed. IMPRESSION: 1. Probable pulmonary edema. 2. Possible underlying respiratory congestion. 3. Possible underlying pneumonia, RLL infiltrate 4. Pacemaker. 5. Hypertension. 6. Asthma/COPD. 7. Mild pleural effusion. 8. Failure to thrive. 9. Cellulitis 10. Skin cancer RECOMMENDATION: Supportive care. Continue medications. Monitor clinically and recommend further. Diuresis per Cardiology. Empiric antibiotics and follow clinically for further changes and interventions. Stabilize. Provide respiratory care oxygen and discharge to home once the patient improves. Antibiotics per ID Critical Care - Objective Last 24 Hour Vital Signs Date Time Temp Pulse Resp B/P (MAP) Pulse Ox O2 Delivery O2 Flow Rate FiO2 12/13/17 20:00 74 18 99 Nasal Cannula 2.0 28 12/13/17 20:00 98.1 69 20 119/54 98 Nasal Cannula 2.0 98.1 12/13/17 19:55 69 18 98 Nasal Cannula 2.0 28 12/13/17 19:55 70 18 98 Nasal Cannula 2.0 28 12/13/17 19:54 98 Nasal Cannula 2.0 28 12/13/17 19:54 Nasal Cannula 2.0 28 12/13/17 19:52 68 18 98 Nasal Cannula 2.0 28 12/13/17 16:00 97.8 73 18 128/50 99 Nasal Cannula 2.0 97.8 12/13/17 15:26 84 18 98 Nasal Cannula 2.0 28 12/13/17 15:19 79 18 98 Nasal Cannula 2.0 28 12/13/17 12:25 82 18 98 Nasal Cannula 2.0 28 12/13/17 12:15 81 18 96 Nasal Cannula 2.0 28 12/13/17 12:00 97.8 72 17 109/79 98 Nasal Cannula 2.0 97.8 12/13/17 09:56 76 18 98 Nasal Cannula 2.0 28 12/13/17 09:56 76 18 97 Nasal Cannula 2.0 28 12/13/17 09:40 67 144/62 12/13/17 08:20 98.9 67 18 144/62 100 Room Air 98.9 12/13/17 07:52 80 18 97 Nasal Cannula 2.0 28 12/13/17 07:43 76 18 97 Nasal Cannula 2.0 28 12/13/17 07:43 Nasal Cannula 2.0 28 12/13/17 07:43 Nasal Cannula 12/13/17 07:43 97 Nasal Cannula 2.0 28 12/13/17 04:00 97.5 82 20 137/55 95 97.5 12/13/17 04:00 97 Nasal Cannula 2.0 12/13/17 03:15 86 20 98 Nasal Cannula 2.0 28 12/13/17 03:08 84 18 97 Nasal Cannula 2.0 28 12/13/17 00:03 86 18 98 12/13/17 00:00 98.3 80 20 122/52 100 98.3 12/13/17 00:00 100 Nasal Cannula 2.0 12/12/17 23:53 86 18 95 Nasal Cannula 2.0 28 12/12/17 23:00 86 18 98 Nasal Cannula 2.0 28 12/12/17 21:37 Nasal Cannula 2.0 28 12/12/17 21:37 98 Nasal Cannula 2.0 28 12/12/17 21:37 64 18 98 Nasal Cannula 2.0 28 12/12/17 21:33 65 124/58 12/12/17 20:35 68 18 98 Nasal Cannula 2.0 28 Micro: Microbiology Date/Time Source Procedure Growth Status 12/11/17 13:30 Sputum Expectorated Gram Stain - Final Resulted 12/11/17 13:30 Sputum Culture - Preliminary Gram Negative Bacillus 1 Gram Negative Bacillus 2 Resulted Critical Care - Subjective ROS Limited/Unobtainable: Yes Condition: stable IV Access: peripheral EKG Rhythm: Sinus Rhythm FI02: 28 Sputum Amount: None I&O: Intake and Output 12/12/17 12/13/17 19:00 07:00 Intake Total 240 ml Output Total 700 ml Balance 240 ml -700 ml Intake Oral 240 ml Output Urine Total 700 ml # Voids 5 1 # Bowel Movements 4 Levi Byers M.D. December 13, 2017 20:35
--- NOTE | 2017-12-13 23:01 | Progress Note ---
DATE: 12/13/2017 CARDIOLOGY PROGRESS NOTE SUBJECTIVE: The patient has some congestion. She has trouble mobilizing secretions. She is concerned about her ill , now hospitalized here in the intensive care unit. OBJECTIVE: VITAL SIGNS: Blood pressure 144/62, pulse 67, and respirations 18. LUNGS: Coarse breath sounds. Scattered rhonchi. HEART: Regular rhythm and rate. Normal S1, S2. A 1/6 systolic apical murmur. ABDOMEN: Soft. EXTREMITIES: A 1+ dependent edema. LABORATORY AND DIAGNOSTIC DATA: Potassium 4.7, BUN 57, creatinine 1.4. Pro-natriuretic peptide 1200. IMPRESSION: 1. Healthcare acquired pneumonia. 2. Paroxysmal bronchospasm. 3. Bronchospastic lung disease. 4. Paroxysmal atrial fibrillation. 5. Permanent pacemaker. 6. Acute on chronic diastolic congestive heart failure, now clinically compensated. 7. Hypertensive heart disease. 8. Bilateral lower extremity cellulitis. PLAN: 1. Antimicrobials. 2. Bronchodilators. 3. Hold diuretics and resume maintenance dosing. 4. DVT prophylaxis. Levi Wu M.D. DR: KIRSTIE JOB#: [id number] CC:
[2017-12-14] VITALS: BP 124/65
[2017-12-14] MEDS: Albuterol/Ipratropium 3ml neb HHN SCH ×6 (03:45→23:10)
[2017-12-14 04:00] VITALS: BP 116/47
[2017-12-14] MEDS: Piperacillin/Tazobactam 3.375 GM in D5W 110 ML IVPB SCH (06:01)
--- NOTE | 2017-12-14 07:24 | General Progress Note ---
Assessment/Plan Problem List: (1) Renal insufficiency ICD Codes: N28.9 - Disorder of kidney and ureter, unspecified SNOMED: 868507075, 574449516 (2) CHF (congestive heart failure) ICD Codes: I50.9 - Heart failure, unspecified SNOMED: 58134130 Qualifiers: Qualified Codes: I50.9 - Heart failure, unspecified (3) Bilateral lower leg cellulitis ICD Codes: L03.116 - Cellulitis of left lower limb; L03.115 - Cellulitis of right lower limb SNOMED: 362235020 (4) Skin cancer ICD Codes: C44.90 - Unspecified malignant neoplasm of skin, unspecified SNOMED: 237569629 (5) Sepsis ICD Codes: A41.9 - Sepsis, unspecified organism SNOMED: 64093558 (6) Acute respiratory failure ICD Codes: J96.00 - Acute respiratory failure, unspecified whether with hypoxia or hypercapnia SNOMED: 10198595 (7) CAP (community acquired pneumonia) ICD Codes: J18.9 - Pneumonia, unspecified organism SNOMED: 742512675 Status: stable, progressing Assessment/Plan po lasix monitor renal fxn/labs/cxr resp rx mucinex abx per id pt/ot elevated legs skin care dc planning to snf Subjective ROS Limited/Unobtainable: No Constitutional: Reports: malaise, weakness HEENT: Reports: no symptoms Cardiovascular: Reports: no symptoms Respiratory: Reports: no symptoms, cough, shortness of breath Gastrointestinal/Abdominal: Reports: no symptoms Genitourinary: Reports: no symptoms Neurologic/Psychiatric: Reports: anxiety, depressed Endocrine: Reports: no symptoms Hematologic/Lymphatic: Reports: anemia Allergies: Coded Allergies: IODINE (Verified Allergy, Unknown, 12/05/17) POVIDONE-IODINE (Verified Allergy, Unknown, 12/05/17) SOAP (Verified Allergy, Unknown, 12/05/17) All Systems: reviewed and negative except above Subjective c/o congestion and sob. upset about who in the icu last night. Objective Last 24 Hour Vital Signs Date Time Temp Pulse Resp B/P (MAP) Pulse Ox O2 Delivery O2 Flow Rate FiO2 12/14/17 04:00 Nasal Cannula 2.0 12/14/17 04:00 98.1 72 20 116/47 97 Room Air 98.1 12/14/17 03:53 80 18 99 Nasal Cannula 2.0 28 12/14/17 03:45 77 18 98 Nasal Cannula 2.0 28 12/14/17 00:01 78 18 99 Nasal Cannula 2.0 12/14/17 00:00 Nasal Cannula 2.0 12/14/17 00:00 97.2 78 20 124/65 99 Nasal Cannula 97.2 12/13/17 23:55 72 18 98 Nasal Cannula 2.0 12/13/17 20:49 74 119/54 12/13/17 20:00 74 18 99 Nasal Cannula 2.0 28 12/13/17 20:00 98.1 69 20 119/54 98 Nasal Cannula 2.0 98.1 12/13/17 19:55 69 18 98 Nasal Cannula 2.0 12/13/17 19:55 70 18 98 Nasal Cannula 2.0 12/13/17 19:54 98 Nasal Cannula 2.0 12/13/17 19:54 Nasal Cannula 2.0 12/13/17 19:52 68 18 98 Nasal Cannula 2.0 12/13/17 16:00 97.8 73 18 128/50 99 Nasal Cannula 2.0 97.8 12/13/17 15:26 84 18 98 Nasal Cannula 2.0 12/13/17 15:19 79 18 98 Nasal Cannula 2.0 12/13/17 12:25 82 18 98 Nasal Cannula 2.0 12/13/17 12:15 81 18 96 Nasal Cannula 2.0 12/13/17 12:00 97.8 72 17 109/79 98 Nasal Cannula 2.0 97.8 12/13/17 09:56 76 18 98 Nasal Cannula 2.0 12/13/17 09:56 76 18 97 Nasal Cannula 2.0 28 12/13/17 09:40 67 144/62 12/13/17 08:20 98.9 67 18 144/62 100 Room Air 98.9 12/13/17 07:52 80 18 97 Nasal Cannula 2.0 28 12/13/17 07:43 76 18 97 Nasal Cannula 2.0 28 12/13/17 07:43 Nasal Cannula 2.0 28 12/13/17 07:43 Nasal Cannula 12/13/17 07:43 97 Nasal Cannula 2.0 28 Intake and Output 12/13/17 12/14/17 19:00 07:00 Intake Total 360.0 ml Balance 360.0 ml Intake Oral 250 ml IV Total 110.0 ml # Voids 5 # Bowel Movements 3 Height (Feet): 4 Height (Inches): 9.00 Weight (Pounds): 232 Objective General Appearance: WD/WN, alert Neck: supple Cardiovascular: normal rate, regular rhythm Respiratory/Chest: lungs clear Abdomen: normal bowel sounds, non tender, soft, no organomegaly Edema: mild edema 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
[2017-12-14 08:00] VITALS: BP 119/54
[2017-12-14] MEDS: Aspirin EC 81mg tab ORAL SCH (08:48)
[2017-12-14] MEDS: Pred Forte 1% Opth Susp 1ml RIGHT EYE SCH ×4 (08:48→21:00)
[2017-12-14] MEDS: Premarin tab 0.625MG ORAL SCH (08:48)
[2017-12-14] MEDS: Triamcinolone 0.1% 15gm Cr TOPIC SCH ×2 (08:49→18:13)
[2017-12-14] MEDS ORDERED: Furosemide 40mg tab ORAL SCH (09:00)
[2017-12-14] MEDS: Metoprolol 25mg tab ORAL SCH ×2 (09:00→21:00)
[2017-12-14] MEDS: Minocycline HCl 50mg cap ORAL SCH ×2 (09:00→20:59)
[2017-12-14] MEDS ORDERED: Minocycline HCl 50mg cap ORAL SCH (09:30)
[2017-12-14] MEDS ORDERED: Metoprolol 25mg tab ORAL SCH (09:30)
[2017-12-14 09:43] LABS: ALANINE AMINOTRANSFERASE 23 U/L (12-78); ALBUMIN 2.3 G/DL (3.4-5.0); ALBUMIN/GLOBULIN RATIO 0.6 (1.0-2.7); ALKALINE PHOSPHATASE 69 U/L (46-116); ANION GAP 5 mmol/L (5-15); ASPARTATE AMINO TRANSFERASE 15 U/L (15-37); BILIRUBIN,TOTAL 0.3 MG/DL (0.2-1.0); BLOOD UREA NITROGEN 54 mg/dL (7-18); CALCIUM 8.8 MG/DL (8.5-10.1); CARBON DIOXIDE 33 MMOL/L (21-32); CHLORIDE 102 MMOL/L (98-107); CREATININE 1.5 MG/DL (0.55-1.30); POTASSIUM 4.2 MMOL/L (3.5-5.1); SODIUM 140 MMOL/L (136-145)
--- NOTE | 2017-12-14 10:27 | Pulmonology Progress Note ---
Assessment/Plan Assessment/Plan 1. Probable pulmonary edema. 2. Pulmonary congestion. 3. Possible underlying pneumonia, RLL infiltrate 4. Pacemaker. 5. Hypertension. 6. Asthma/COPD. 7. Mild pleural effusion. 8. Failure to thrive. 9. Cellulitis PLAN wound care keep negative respiratory care oxygen grieving at present will need SNF care unable to care for self at home impression, plan, and exam edited and reviewed in detail care discussed with RN Subjective Allergies: Coded Allergies: IODINE (Verified Allergy, Unknown, 12/05/17) POVIDONE-IODINE (Verified Allergy, Unknown, 12/05/17) SOAP (Verified Allergy, Unknown, 12/05/17) Subjective care noted snf dispo noted Objective Last 24 Hour Vital Signs Date Time Temp Pulse Resp B/P (MAP) Pulse Ox O2 Delivery O2 Flow Rate FiO2 12/14/17 09:55 69 119/54 12/14/17 08:00 98.0 20 119/54 94 Nasal Cannula 2.0 98.0 12/14/17 06:45 80 18 100 Nasal Cannula 2.0 28 12/14/17 06:35 Nasal Cannula 2.0 28 12/14/17 06:35 97 Nasal Cannula 2.0 28 12/14/17 06:35 80 18 97 Nasal Cannula 2.0 28 12/14/17 04:00 Nasal Cannula 2.0 12/14/17 04:00 98.1 72 20 116/47 97 Room Air 98.1 12/14/17 03:53 80 18 99 Nasal Cannula 2.0 28 12/14/17 03:45 77 18 98 Nasal Cannula 2.0 28 12/14/17 00:01 78 18 99 Nasal Cannula 2.0 28 12/14/17 00:00 Nasal Cannula 2.0 12/14/17 00:00 97.2 78 20 124/65 99 Nasal Cannula 97.2 12/13/17 23:55 72 18 98 Nasal Cannula 2.0 28 12/13/17 20:49 74 119/54 12/13/17 20:00 74 18 99 Nasal Cannula 2.0 28 12/13/17 20:00 98.1 69 20 119/54 98 Nasal Cannula 2.0 98.1 12/13/17 19:55 69 18 98 Nasal Cannula 2.0 28 12/13/17 19:55 70 18 98 Nasal Cannula 2.0 28 12/13/17 19:54 98 Nasal Cannula 2.0 28 12/13/17 19:54 Nasal Cannula 2.0 28 12/13/17 19:52 68 18 98 Nasal Cannula 2.0 28 12/13/17 16:00 97.8 73 18 128/50 99 Nasal Cannula 2.0 97.8 12/13/17 15:26 84 18 98 Nasal Cannula 2.0 28 12/13/17 15:19 79 18 98 Nasal Cannula 2.0 28 12/13/17 12:25 82 18 98 Nasal Cannula 2.0 28 12/13/17 12:15 81 18 96 Nasal Cannula 2.0 28 12/13/17 12:00 97.8 72 17 109/79 98 Nasal Cannula 2.0 97.8 Intake and Output 12/13/17 12/14/17 19:00 07:00 Intake Total 360.0 ml Balance 360.0 ml Intake Oral 250 ml IV Total 110.0 ml # Voids 5 # Bowel Movements 3 Objective WDWN NAD reduced breath sounds bilaterally without rhonchi or wheeze [id number] without MRG NABS nontender no HSM no CC edema and erythema nonfocal weak Microbiology Date/Time Source Procedure Growth Status 12/11/17 13:30 Sputum Expectorated Gram Stain - Final Resulted 12/11/17 13:30 Sputum Culture - Preliminary A.baumanii Complx - Mdr Resulted Laboratory Tests 12/14/17 06:55: Sodium Level 140, Potassium Level 4.2, Chloride Level 102, Carbon Dioxide Level 33H, Anion Gap 5, Blood Urea Nitrogen 54H, Creatinine 1.5H, Estimat Glomerular Filtration Rate , Glucose Level 93, Calcium Level 8.8, Total Bilirubin 0.3, Aspartate Amino Transf (AST/SGOT) 15, Alanine Aminotransferase (ALT/SGPT) 23, Alkaline Phosphatase 69, Total Protein 6.2L, Albumin 2.3L, Globulin 3.9, Albumin /Globulin Ratio 0.6L Current Medications Medications (Trade) Dose Ordered Sig/Sachin Route PRN Reason Start Time Stop Time Status Last Admin Dose Admin Acetaminophen (Tylenol) 650 mg Q4H PRN ORAL Mild Pain/Temp > 100.5 12/05/17 21:10 01/04/18 21:09 Al Hydroxide/Mg Hydroxide (Mylanta) 30 ml Q4H PRN ORAL Nausea & Vomiting 12/05/17 21:11 01/04/18 21:10 Albuterol/ Ipratropium (Albuterol/ Ipratropium) 3 ml Q4H PRN HHN Shortness of Breath 12/11/17 12:45 12/16/17 12:44 12/11/17 20:54 Albuterol/ Ipratropium (Albuterol/ Ipratropium) 3 ml Q4HRT HHN 12/11/17 23:00 12/16/17 22:59 12/14/17 07:53 Aspirin (Ecotrin) 81 mg DAILY ORAL 12/06/17 09:00 01/05/18 08:59 12/14/17 08:48 Atorvastatin Calcium (Lipitor) 10 mg BEDTIME ORAL 12/06/17 21:00 01/05/18 20:59 12/13/17 20:50 Diphenhydramine HCl (Benadryl) 50 mg Q4HR PRN ORAL Itching 12/11/17 16:30 01/10/18 16:29 12/13/17 00:16 Estrogens Conjugated (Premarin) 0.625 mg DAILY ORAL 12/07/17 09:00 01/06/18 08:59 12/14/17 08:48 Furosemide (Lasix) 40 mg DAILY ORAL 12/14/17 09:00 01/13/18 08:59 12/14/17 08:48 Magnesium Hydroxide (Mom) 30 ml DAILYPRN PRN ORAL Constipation 12/05/17 21:11 01/04/18 21:10 Metoprolol Tartrate (Lopressor) 25 mg Q12HR ORAL 12/14/17 09:30 01/13/18 09:29 12/14/17 09:55 Minocycline HCl (Minocin) 100 mg Q12HR ORAL 12/14/17 09:30 12/21/17 09:29 12/14/17 09:56 Montelukast Sodium (Singulair) 10 mg QPM ORAL 12/06/17 16:30 01/05/18 16:29 12/13/17 16:55 Pantoprazole (Protonix) 40 mg DAILY ORAL 12/06/17 09:00 01/05/18 08:59 12/14/17 08:47 Piperacillin Sod/ Tazobactam Sod 3.375 gm/Dextrose 110 ml @ 27.5 mls/hr EVERY 8 HOURS IVPB 12/13/17 12:00 12/18/17 11:59 12/14/17 06:01 Prednisolone Acetate (Pred Forte) 1 drop QID RIGHT EYE 12/06/17 18:00 01/05/18 17:59 12/14/17 08:48 Salmeterol Xinafoate/ Fluticasone (Advair 250/50 Diskus) 1 puffs BIDRT INH 12/06/17 10:00 01/05/18 09:59 12/13/17 19:49 Triamcinolone Acetonide (Kenalog) 1 applic BID TOPIC 12/06/17 18:00 01/05/18 17:59 12/14/17 08:49 Shubham Rivera MD December 14, 2017 10:27
[2017-12-14] MEDS: Advair 250/50 Inhaler - 14 dose INH SCH ×2 (11:56→23:10)
[2017-12-14 12:00] VITALS: BP 120/53
[2017-12-14 16:00] VITALS: BP 122/55
[2017-12-14] MEDS: Montelukast 10mg tablet ORAL SCH (19:00)
[2017-12-14 20:00] VITALS: BP 114/56
[2017-12-15] VITALS: BP 125/63
[2017-12-15] MEDS: Albuterol/Ipratropium 3ml neb HHN SCH ×5 (03:00→23:58)
[2017-12-15 04:00] VITALS: BP 117/56
--- NOTE | 2017-12-15 07:24 | Pulmonology Progress Note ---
Assessment/Plan Assessment/Plan 1. Probable pulmonary edema. 2. Pulmonary congestion. 3. Possible underlying pneumonia, RLL infiltrate 4. Pacemaker. 5. Hypertension. 6. Asthma/COPD. 7. Mild pleural effusion. 8. Failure to thrive. 9. Cellulitis PLAN wound care check sputum again keep negative respiratory care oxygen stable for lower level of care will need SNF care unable to care for self at home impression, plan, and exam edited and reviewed in detail care discussed with RN Subjective Allergies: Coded Allergies: IODINE (Verified Allergy, Unknown, 12/05/17) POVIDONE-IODINE (Verified Allergy, Unknown, 12/05/17) SOAP (Verified Allergy, Unknown, 12/05/17) Subjective care noted snf dispo noted and patient grieving Objective Last 24 Hour Vital Signs Date Time Temp Pulse Resp B/P (MAP) Pulse Ox O2 Delivery O2 Flow Rate FiO2 12/15/17 04:00 98.2 73 20 117/56 92 Nasal Cannula 98.2 12/15/17 03:25 Nasal Cannula 2.0 28 12/15/17 03:23 Nasal Cannula 2.0 28 12/15/17 00:00 98.3 80 20 125/63 100 Nasal Cannula 98.3 12/15/17 00:00 Nasal Cannula 2.0 12/14/17 23:20 70 18 100 Nasal Cannula 2.0 28 12/14/17 23:15 69 18 96 Nasal Cannula 2.0 28 12/14/17 23:14 69 18 98 Nasal Cannula 2.0 28 12/14/17 23:14 69 18 98 Nasal Cannula 2.0 28 12/14/17 21:00 64 145/92 12/14/17 20:00 Nasal Cannula 2.0 12/14/17 20:00 98.2 68 20 114/56 97 Nasal Cannula 98.2 12/14/17 19:27 70 18 97 Nasal Cannula 2.0 28 12/14/17 19:20 93 Nasal Cannula 2.0 28 12/14/17 19:19 Nasal Cannula 2.0 28 12/14/17 19:18 87 18 93 Nasal Cannula 2.0 28 12/14/17 16:00 98.0 80 20 122/55 98 Nasal Cannula 2.0 98.0 80 98 12/14/17 15:06 78 18 100 Nasal Cannula 2.0 28 12/14/17 14:58 76 18 98 Nasal Cannula 2.0 28 12/14/17 12:04 76 18 98 Nasal Cannula 2.0 28 12/14/17 12:04 76 18 98 Nasal Cannula 2.0 28 12/14/17 12:00 98.4 77 19 120/53 97 Nasal Cannula 2.0 98.4 77 97 12/14/17 11:56 72 18 98 Nasal Cannula 2.0 28 12/14/17 11:56 72 18 98 Nasal Cannula 2.0 28 12/14/17 09:55 69 119/54 12/14/17 08:00 98.0 20 119/54 94 Nasal Cannula 2.0 98.0 Intake and Output 12/14/17 12/15/17 19:00 07:00 Intake Total 1127.5 ml 120 ml Balance 1127.5 ml 120 ml Intake Oral 1100 ml 120 ml IV Total 27.5 ml # Voids 5 2 # Bowel Movements 2 Objective WDWN NAD reduced breath sounds bilaterally without rhonchi or wheeze [id number] without MRG NABS nontender no HSM no CC edema and erythema nonfocal weak Current Medications Medications (Trade) Dose Ordered Sig/Sachin Route PRN Reason Start Time Stop Time Status Last Admin Dose Admin Acetaminophen (Tylenol) 650 mg Q4H PRN ORAL Mild Pain/Temp > 100.5 12/05/17 21:10 01/04/18 21:09 Al Hydroxide/Mg Hydroxide (Mylanta) 30 ml Q4H PRN ORAL Nausea & Vomiting 12/05/17 21:11 01/04/18 21:10 Albuterol/ Ipratropium (Albuterol/ Ipratropium) 3 ml Q4H PRN HHN Shortness of Breath 12/11/17 12:45 12/16/17 12:44 12/11/17 20:54 Albuterol/ Ipratropium (Albuterol/ Ipratropium) 3 ml Q4HRT HHN 12/11/17 23:00 12/16/17 22:59 12/14/17 23:10 Aspirin (Ecotrin) 81 mg DAILY ORAL 12/15/17 09:00 01/05/18 08:59 Atorvastatin Calcium (Lipitor) 10 mg BEDTIME ORAL 12/14/17 21:00 01/05/18 20:59 12/14/17 20:59 Diphenhydramine HCl (Benadryl) 50 mg Q4HR PRN ORAL Itching 12/11/17 16:30 01/10/18 16:29 12/13/17 00:16 Estrogens Conjugated (Premarin) 0.625 mg DAILY ORAL 12/15/17 09:00 01/06/18 08:59 Furosemide (Lasix) 40 mg DAILY ORAL 12/15/17 09:00 01/13/18 08:59 Magnesium Hydroxide (Mom) 30 ml DAILYPRN PRN ORAL Constipation 12/05/17 21:11 01/04/18 21:10 Metoprolol Tartrate (Lopressor) 25 mg Q12HR ORAL 12/14/17 21:00 01/13/18 20:59 12/14/17 21:00 Minocycline HCl (Minocin) 100 mg Q12HR ORAL 12/14/17 21:00 12/16/17 23:59 12/14/17 20:59 Montelukast Sodium (Singulair) 10 mg QPM ORAL 12/14/17 16:30 01/15/18 16:29 12/14/17 19:00 Pantoprazole (Protonix) 40 mg ACBREAKFAST ORAL 12/15/17 06:30 01/14/18 06:29 12/15/17 06:33 Prednisolone Acetate (Pred Forte) 1 drop QID RIGHT EYE 12/06/17 18:00 01/05/18 17:59 12/14/17 21:00 Salmeterol Xinafoate/ Fluticasone (Advair 250/50 Diskus) 1 puffs BIDRT INH 12/06/17 10:00 01/05/18 09:59 12/14/17 23:10 Triamcinolone Acetonide (Kenalog) 1 applic BID TOPIC 12/06/17 18:00 01/05/18 17:59 12/14/17 18:13 Shubham Rivera MD December 15, 2017 07:24
[2017-12-15 08:00] VITALS: BP 139/99
--- NOTE | 2017-12-15 08:08 | General Progress Note ---
Assessment/Plan Problem List: (1) Renal insufficiency ICD Codes: N28.9 - Disorder of kidney and ureter, unspecified SNOMED: 281067907, 058856103 (2) CHF (congestive heart failure) ICD Codes: I50.9 - Heart failure, unspecified SNOMED: 86290974 Qualifiers: Qualified Codes: I50.9 - Heart failure, unspecified (3) Bilateral lower leg cellulitis ICD Codes: L03.116 - Cellulitis of left lower limb; L03.115 - Cellulitis of right lower limb SNOMED: 449251674 (4) Skin cancer ICD Codes: C44.90 - Unspecified malignant neoplasm of skin, unspecified SNOMED: 368788340 (5) Sepsis ICD Codes: A41.9 - Sepsis, unspecified organism SNOMED: 60642123 (6) Acute respiratory failure ICD Codes: J96.00 - Acute respiratory failure, unspecified whether with hypoxia or hypercapnia SNOMED: 46166997 (7) CAP (community acquired pneumonia) ICD Codes: J18.9 - Pneumonia, unspecified organism SNOMED: 538258665 Status: stable, progressing Assessment/Plan po lasix monitor renal fxn/labs/cxr resp rx mucinex abx per id pt/ot elevated legs skin care dc planning to snf family/social work [place] Subjective ROS Limited/Unobtainable: No Constitutional: Reports: malaise, weakness HEENT: Reports: no symptoms Cardiovascular: Reports: no symptoms Respiratory: Reports: cough Gastrointestinal/Abdominal: Reports: no symptoms Genitourinary: Reports: no symptoms Neurologic/Psychiatric: Reports: no symptoms Endocrine: Reports: no symptoms Hematologic/Lymphatic: Reports: no symptoms Allergies: Coded Allergies: IODINE (Verified Allergy, Unknown, 12/05/17) POVIDONE-IODINE (Verified Allergy, Unknown, 12/05/17) SOAP (Verified Allergy, Unknown, 12/05/17) All Systems: reviewed and negative except above Subjective c/o congestion and sob. on o2. resp rx atc. no cp Objective Last 24 Hour Vital Signs Date Time Temp Pulse Resp B/P (MAP) Pulse Ox O2 Delivery O2 Flow Rate FiO2 12/15/17 04:00 98.2 73 20 117/56 92 Nasal Cannula 98.2 12/15/17 03:25 Nasal Cannula 2.0 28 12/15/17 03:23 Nasal Cannula 2.0 28 12/15/17 00:00 98.3 80 20 125/63 100 Nasal Cannula 98.3 12/15/17 00:00 Nasal Cannula 2.0 12/14/17 23:20 70 18 100 Nasal Cannula 2.0 28 12/14/17 23:15 69 18 96 Nasal Cannula 2.0 28 12/14/17 23:14 69 18 98 Nasal Cannula 2.0 28 12/14/17 23:14 69 18 98 Nasal Cannula 2.0 28 12/14/17 21:00 64 145/92 12/14/17 20:00 Nasal Cannula 2.0 12/14/17 20:00 98.2 68 20 114/56 97 Nasal Cannula 98.2 12/14/17 19:27 70 18 97 Nasal Cannula 2.0 28 12/14/17 19:20 93 Nasal Cannula 2.0 28 12/14/17 19:19 Nasal Cannula 2.0 28 12/14/17 19:18 87 18 93 Nasal Cannula 2.0 28 12/14/17 16:00 98.0 80 20 122/55 98 Nasal Cannula 2.0 98.0 80 98 12/14/17 15:06 78 18 100 Nasal Cannula 2.0 28 12/14/17 14:58 76 18 98 Nasal Cannula 2.0 28 12/14/17 12:04 76 18 98 Nasal Cannula 2.0 28 12/14/17 12:04 76 18 98 Nasal Cannula 2.0 28 12/14/17 12:00 98.4 77 19 120/53 97 Nasal Cannula 2.0 98.4 77 97 12/14/17 11:56 72 18 98 Nasal Cannula 2.0 28 12/14/17 11:56 72 18 98 Nasal Cannula 2.0 28 12/14/17 09:55 69 119/54 Intake and Output 12/14/17 12/15/17 19:00 07:00 Intake Total 1127.5 ml 120 ml Balance 1127.5 ml 120 ml Intake Oral 1100 ml 120 ml IV Total 27.5 ml # Voids 5 2 # Bowel Movements 2 Height (Feet): 4 Height (Inches): 9.00 Weight (Pounds): 233 Objective General Appearance: WD/WN, alert Neck: supple Cardiovascular: normal rate, regular rhythm Respiratory/Chest: lungs clear Abdomen: normal bowel sounds, non tender, soft, no organomegaly Edema: mild edema 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
[2017-12-15] MEDS: Aspirin EC 81mg tab ORAL SCH (09:38)
[2017-12-15] MEDS: Premarin tab 0.625MG ORAL SCH (09:38)
[2017-12-15] MEDS: Furosemide 40mg tab ORAL SCH (09:39)
[2017-12-15] MEDS: Minocycline HCl 50mg cap ORAL SCH ×2 (09:39→21:07)
[2017-12-15] MEDS: Metoprolol 25mg tab ORAL SCH ×2 (09:39→21:07)
[2017-12-15] MEDS: Pred Forte 1% Opth Susp 1ml RIGHT EYE SCH ×4 (09:41→21:07)
[2017-12-15] MEDS: Triamcinolone 0.1% 15gm Cr TOPIC SCH ×2 (09:41→17:30)
[2017-12-15] MEDS: Advair 250/50 Inhaler - 14 dose INH SCH ×2 (09:57→19:49)
[2017-12-15 12:00] VITALS: BP 136/71
--- NOTE | 2017-12-15 13:44 | Infectious Diseases Prog Note ---
Assessment/Plan Assessment/Plan 1. left leg cellulitis with Acenitobacter 2. CHF 3. 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 Pneumonia with Acinetobacter P 1. continue minocycline 2. Add colistin inhaler Subjective ROS Limited/Unobtainable: No Respiratory: Reports: productive cough Cardiovascular: Reports: no symptoms Gastrointestinal/Abdominal: Reports: no symptoms Genitourinary: Reports: no symptoms Allergies: Coded Allergies: IODINE (Verified Allergy, Unknown, 12/05/17) POVIDONE-IODINE (Verified Allergy, Unknown, 12/05/17) SOAP (Verified Allergy, Unknown, 12/05/17) Objective Vital Signs Last 24 Hour Vital Signs Date Time Temp Pulse Resp B/P (MAP) Pulse Ox O2 Delivery O2 Flow Rate FiO2 12/15/17 12:00 98.1 69 17 136/71 95 Nasal Cannula 2.0 98.1 12/15/17 10:16 92 Nasal Cannula 2.0 28 12/15/17 10:13 80 22 92 Nasal Cannula 2.0 28 12/15/17 10:12 80 22 92 Nasal Cannula 2.0 28 12/15/17 10:02 Nasal Cannula 2.0 28 12/15/17 10:00 78 22 85 Nasal Cannula 2.0 28 12/15/17 09:59 78 22 85 Nasal Cannula 2.0 28 12/15/17 09:39 73 139/99 12/15/17 08:00 97.7 73 18 139/99 98 Nasal Cannula 2.0 97.7 12/15/17 04:00 98.2 73 20 117/56 92 Nasal Cannula 98.2 12/15/17 03:25 Nasal Cannula 2.0 28 12/15/17 03:23 Nasal Cannula 2.0 28 12/15/17 00:00 98.3 80 20 125/63 100 Nasal Cannula 98.3 12/15/17 00:00 Nasal Cannula 2.0 12/14/17 23:20 70 18 100 Nasal Cannula 2.0 28 12/14/17 23:15 69 18 96 Nasal Cannula 2.0 28 12/14/17 23:14 69 18 98 Nasal Cannula 2.0 28 12/14/17 23:14 69 18 98 Nasal Cannula 2.0 28 12/14/17 21:00 64 145/92 12/14/17 20:00 Nasal Cannula 2.0 12/14/17 20:00 98.2 68 20 114/56 97 Nasal Cannula 98.2 12/14/17 19:27 70 18 97 Nasal Cannula 2.0 28 12/14/17 19:20 93 Nasal Cannula 2.0 28 12/14/17 19:19 Nasal Cannula 2.0 28 12/14/17 19:18 87 18 93 Nasal Cannula 2.0 28 12/14/17 16:00 98.0 80 20 122/55 98 Nasal Cannula 2.0 98.0 80 98 12/14/17 15:06 78 18 100 Nasal Cannula 2.0 28 12/14/17 14:58 76 18 98 Nasal Cannula 2.0 28 Height (Feet): 4 Height (Inches): 9.00 Weight (Pounds): 233 General Appearance: no acute distress HEENT: mucous membranes moist Respiratory/Chest: lungs clear Cardiovascular: normal rate Abdomen: soft, non tender Extremities: other - edema of legs Skin: rash, lesions, ulcers Neurologic/Psychiatric: alert, oriented x 3, responsive Current Medications Medications (Trade) Dose Ordered Sig/Sachin Route PRN Reason Start Time Stop Time Status Last Admin Dose Admin Acetaminophen (Tylenol) 650 mg Q4H PRN ORAL Mild Pain/Temp > 100.5 12/05/17 21:10 01/04/18 21:09 Al Hydroxide/Mg Hydroxide (Mylanta) 30 ml Q4H PRN ORAL Nausea & Vomiting 12/05/17 21:11 01/04/18 21:10 Albuterol/ Ipratropium (Albuterol/ Ipratropium) 3 ml Q4H PRN HHN Shortness of Breath 12/11/17 12:45 12/16/17 12:44 12/11/17 20:54 Albuterol/ Ipratropium (Albuterol/ Ipratropium) 3 ml Q4HRT HHN 12/11/17 23:00 12/16/17 22:59 12/15/17 09:57 Aspirin (Ecotrin) 81 mg DAILY ORAL 12/15/17 09:00 01/05/18 08:59 12/15/17 09:38 Atorvastatin Calcium (Lipitor) 10 mg BEDTIME ORAL 12/14/17 21:00 01/05/18 20:59 12/14/17 20:59 Diphenhydramine HCl (Benadryl) 50 mg Q4HR PRN ORAL Itching 12/11/17 16:30 01/10/18 16:29 12/13/17 00:16 Estrogens Conjugated (Premarin) 0.625 mg DAILY ORAL 12/15/17 09:00 01/06/18 08:59 12/15/17 09:38 Furosemide (Lasix) 40 mg DAILY ORAL 12/15/17 09:00 01/13/18 08:59 12/15/17 09:39 Magnesium Hydroxide (Mom) 30 ml DAILYPRN PRN ORAL Constipation 12/05/17 21:11 01/04/18 21:10 Metoprolol Tartrate (Lopressor) 25 mg Q12HR ORAL 12/14/17 21:00 01/13/18 20:59 12/15/17 09:39 Minocycline HCl (Minocin) 100 mg Q12HR ORAL 12/14/17 21:00 12/16/17 23:59 12/15/17 09:39 Montelukast Sodium (Singulair) 10 mg QPM ORAL 12/14/17 16:30 01/15/18 16:29 12/14/17 19:00 Pantoprazole (Protonix) 40 mg ACBREAKFAST ORAL 12/15/17 06:30 01/14/18 06:29 12/15/17 06:33 Prednisolone Acetate (Pred Forte) 1 drop QID RIGHT EYE 12/06/17 18:00 01/05/18 17:59 12/15/17 09:41 Salmeterol Xinafoate/ Fluticasone (Advair 250/50 Diskus) 1 puffs BIDRT INH 12/06/17 10:00 01/05/18 09:59 12/15/17 09:57 Triamcinolone Acetonide (Kenalog) 1 applic BID TOPIC 12/06/17 18:00 01/05/18 17:59 12/15/17 09:41 LUDIVINA BRITO December 15, 2017 13:44
[2017-12-15 16:00] VITALS: BP 140/70
[2017-12-15] MEDS: Montelukast 10mg tablet ORAL SCH (17:30)
[2017-12-15 20:00] VITALS: BP 108/67
[2017-12-15] MEDS: Colistin for inhalation INH SCH (23:58)
[2017-12-16] VITALS: BP 104/48
[2017-12-16] MEDS: Albuterol/Ipratropium 3ml neb HHN SCH ×6 (03:30→19:57)
--- NOTE | 2017-12-16 03:30 | Progress Note ---
DATE: 12/15/2017 CARDIOLOGY PROGRESS NOTE SUBJECTIVE: The patient is still grieving her 's . She feels increasingly short of breath and is requiring [id number] respiratory treatments. She remains on oxygen. OBJECTIVE: VITAL SIGNS: Blood pressure 117/56, pulse 73, and respirations 20. Afebrile. Oxygen saturation is 92% on 2 liters. LUNGS: Coarse breath sounds. Scattered rhonchi. HEART: Regular rhythm and rate. Normal S1, S2. ABDOMEN: Soft. EXTREMITIES: Trace dependent edema. Cellulitic changes are somewhat improved. IMPRESSION: 1. Pneumonia. 2. Acute bronchospasm. 3. Chronic obstructive pulmonary disease exacerbation. 4. Acute on chronic diastolic congestive heart failure. 5. Pleural effusion. 6. Cellulitis. 7. Permanent pacemaker. PLAN: 1. Oxygen supplementation. 2. Antimicrobials. 3. Bronchodilators. 4. Monitor volume status and adjust diuretic therapy. 5. Continue DVT prophylaxis. Levi Wu M.D. DR: MADHU JOB#: [id number] CC:
[2017-12-16 04:00] VITALS: BP 126/57
--- NOTE | 2017-12-16 07:46 | General Progress Note ---
Assessment/Plan Problem List: (1) Renal insufficiency ICD Codes: N28.9 - Disorder of kidney and ureter, unspecified SNOMED: 980479087, 895495558 (2) CHF (congestive heart failure) ICD Codes: I50.9 - Heart failure, unspecified SNOMED: 66989583 Qualifiers: Qualified Codes: I50.9 - Heart failure, unspecified (3) Bilateral lower leg cellulitis ICD Codes: L03.116 - Cellulitis of left lower limb; L03.115 - Cellulitis of right lower limb SNOMED: 358403356 (4) Skin cancer ICD Codes: C44.90 - Unspecified malignant neoplasm of skin, unspecified SNOMED: 539638643 (5) Sepsis ICD Codes: A41.9 - Sepsis, unspecified organism SNOMED: 34636280 (6) Acute respiratory failure ICD Codes: J96.00 - Acute respiratory failure, unspecified whether with hypoxia or hypercapnia SNOMED: 87143584 (7) CAP (community acquired pneumonia) ICD Codes: J18.9 - Pneumonia, unspecified organism SNOMED: 533243148 Status: stable, progressing Assessment/Plan po lasix monitor renal fxn/labs/cxr resp rx mucinex abx per id pt/ot elevated legs skin care dc planning to snf await pulm/ID clearance family/social work [place] Subjective ROS Limited/Unobtainable: No Constitutional: Reports: malaise, weakness HEENT: Reports: no symptoms Cardiovascular: Reports: no symptoms Respiratory: Reports: cough, shortness of breath, sputum Gastrointestinal/Abdominal: Reports: no symptoms Genitourinary: Reports: no symptoms Neurologic/Psychiatric: Reports: no symptoms Endocrine: Reports: no symptoms Hematologic/Lymphatic: Reports: no symptoms Allergies: Coded Allergies: IODINE (Verified Allergy, Unknown, 12/05/17) POVIDONE-IODINE (Verified Allergy, Unknown, 12/05/17) SOAP (Verified Allergy, Unknown, 12/05/17) All Systems: reviewed and negative except above Subjective c/o congestion and sob. on o2. resp rx atc. no chest pain depressed about her . Objective Last 24 Hour Vital Signs Date Time Temp Pulse Resp B/P (MAP) Pulse Ox O2 Delivery O2 Flow Rate FiO2 12/16/17 07:42 74 20 94 Nasal Cannula 2.0 28 12/16/17 04:00 97.6 79 20 126/57 93 Nasal Cannula 97.6 12/16/17 03:40 71 18 98 Nasal Cannula 2.0 28 12/16/17 03:32 68 20 96 Nasal Cannula 2.0 28 12/16/17 00:10 75 20 98 Nasal Cannula 2.0 28 12/16/17 00:02 79 20 98 Nasal Cannula 2.0 28 12/16/17 00:00 98.1 76 20 104/48 92 Nasal Cannula 98.1 12/15/17 23:59 75 18 98 Nasal Cannula 2.0 28 12/15/17 23:51 72 20 95 Nasal Cannula 2.0 28 12/15/17 22:55 92 18 Nasal Cannula 2.0 28 12/15/17 21:07 83 108/67 12/15/17 20:00 97.6 83 22 108/67 94 Nasal Cannula 97.6 12/15/17 19:59 75 18 100 Nasal Cannula 2.0 28 12/15/17 19:51 71 20 94 Nasal Cannula 2.0 28 12/15/17 19:51 Nasal Cannula 2.0 28 12/15/17 19:51 94 Nasal Cannula 2.0 28 12/15/17 19:51 71 20 94 Nasal Cannula 2.0 28 12/15/17 19:50 71 22 94 Nasal Cannula 2.0 12/15/17 16:33 62 20 92 Nasal Cannula 2.0 12/15/17 16:00 98.4 85 18 140/70 94 Nasal Cannula 2.0 98.4 12/15/17 12:00 98.1 69 17 136/71 95 Nasal Cannula 2.0 98.1 12/15/17 11:00 Nasal Cannula 2.0 28 12/15/17 11:00 Nasal Cannula 2.0 28 12/15/17 10:16 92 Nasal Cannula 2.0 28 12/15/17 10:13 80 22 92 Nasal Cannula 2.0 28 12/15/17 10:12 80 22 92 Nasal Cannula 2.0 28 12/15/17 10:02 Nasal Cannula 2.0 28 12/15/17 10:00 78 22 85 Nasal Cannula 2.0 28 12/15/17 09:59 78 22 85 Nasal Cannula 2.0 28 12/15/17 09:39 73 139/99 12/15/17 08:00 97.7 73 18 139/99 98 Nasal Cannula 2.0 97.7 Intake and Output 12/15/17 12/16/17 19:00 07:00 Intake Total 1250 ml 120 ml Output Total 600 ml Balance 1250 ml -480 ml Intake Oral 120 ml Other 1250 ml Output Urine Total 600 ml # Voids 3 2 # Bowel Movements 2 2 Height (Feet): 4 Height (Inches): 9.00 Weight (Pounds): 234 General Appearance: WD/WN, alert Neck: supple Cardiovascular: regular rhythm Respiratory/Chest: rhonchi - bilaterally Abdomen: normal bowel sounds, non tender, soft, no organomegaly Edema: moderate edema 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
[2017-12-16 08:00] VITALS: BP 110/60
[2017-12-16] MEDS: Metoprolol 25mg tab ORAL SCH ×2 (09:00→20:25)
[2017-12-16] MEDS: Advair 250/50 Inhaler - 14 dose INH SCH ×2 (09:17→19:58)
[2017-12-16] MEDS: Colistin for inhalation INH SCH ×2 (09:20→23:52)
[2017-12-16] MEDS: Aspirin EC 81mg tab ORAL SCH (09:29)
[2017-12-16] MEDS: Minocycline HCl 50mg cap ORAL SCH ×2 (09:29→20:24)
[2017-12-16] MEDS: Premarin tab 0.625MG ORAL SCH (09:30)
[2017-12-16] MEDS: Pred Forte 1% Opth Susp 1ml RIGHT EYE SCH ×5 (09:31→20:27)
[2017-12-16] MEDS: Furosemide 40mg tab ORAL SCH (09:31)
[2017-12-16] MEDS: Triamcinolone 0.1% 15gm Cr TOPIC SCH ×2 (09:32→17:45)
--- NOTE | 2017-12-16 10:28 | Pulmonology Progress Note ---
Assessment/Plan Assessment/Plan 1. Probable pulmonary edema. 2. Pulmonary congestion. 3. Possible underlying pneumonia, RLL infiltrate 4. Pacemaker. 5. Hypertension. 6. Asthma/COPD. 7. Mild pleural effusion. 8. Failure to thrive. 9. Cellulitis PLAN wound care ongoing check sputum again- ordered keep negative respiratory care oxygen stable for lower level of care will need SNF care- CM aware unable to care for self at home impression, plan, and exam edited and reviewed in detail care discussed with RN Subjective Allergies: Coded Allergies: IODINE (Verified Allergy, Unknown, 12/05/17) POVIDONE-IODINE (Verified Allergy, Unknown, 12/05/17) SOAP (Verified Allergy, Unknown, 12/05/17) Subjective care noted snf dispo noted on isolation dc planning in progress Objective Last 24 Hour Vital Signs Date Time Temp Pulse Resp B/P (MAP) Pulse Ox O2 Delivery O2 Flow Rate FiO2 12/16/17 09:30 71 22 99 Nasal Cannula 2.0 28 12/16/17 09:20 69 20 99 Nasal Cannula 2.0 28 12/16/17 09:19 68 20 94 Nasal Cannula 2.0 28 12/16/17 09:17 63 20 94 Nasal Cannula 2.0 28 12/16/17 09:00 69 110/60 12/16/17 08:00 98.1 78 19 110/60 93 Nasal Cannula 2.0 98.1 12/16/17 07:52 93 20 99 Nasal Cannula 2.0 28 12/16/17 07:42 74 20 94 Nasal Cannula 2.0 28 12/16/17 07:41 Nasal Cannula 2.0 28 12/16/17 07:40 94 Nasal Cannula 2.0 28 12/16/17 04:00 97.6 79 20 126/57 93 Nasal Cannula 97.6 12/16/17 03:40 71 18 98 Nasal Cannula 2.0 28 12/16/17 03:32 68 20 96 Nasal Cannula 2.0 28 12/16/17 00:10 75 20 98 Nasal Cannula 2.0 28 12/16/17 00:02 79 20 98 Nasal Cannula 2.0 28 12/16/17 00:00 98.1 76 20 104/48 92 Nasal Cannula 98.1 12/15/17 23:59 75 18 98 Nasal Cannula 2.0 28 12/15/17 23:51 72 20 95 Nasal Cannula 2.0 28 12/15/17 22:55 92 18 Nasal Cannula 2.0 28 12/15/17 21:07 83 108/67 12/15/17 20:00 97.6 83 22 108/67 94 Nasal Cannula 97.6 12/15/17 19:59 75 18 100 Nasal Cannula 2.0 28 12/15/17 19:51 71 20 94 Nasal Cannula 2.0 28 12/15/17 19:51 Nasal Cannula 2.0 28 12/15/17 19:51 94 Nasal Cannula 2.0 28 12/15/17 19:51 71 20 94 Nasal Cannula 2.0 28 12/15/17 19:50 71 22 94 Nasal Cannula 2.0 28 12/15/17 16:33 62 20 92 Nasal Cannula 2.0 28 12/15/17 16:00 98.4 85 18 140/70 94 Nasal Cannula 2.0 98.4 12/15/17 12:00 98.1 69 17 136/71 95 Nasal Cannula 2.0 98.1 12/15/17 11:00 Nasal Cannula 2.0 28 12/15/17 11:00 Nasal Cannula 2.0 28 Intake and Output 12/15/17 12/16/17 19:00 07:00 Intake Total 1250 ml 120 ml Output Total 600 ml Balance 1250 ml -480 ml Intake Oral 120 ml Other 1250 ml Output Urine Total 600 ml # Voids 3 2 # Bowel Movements 2 2 Objective WDWN NAD reduced breath sounds bilaterally without rhonchi or wheeze [id number] without MRG NABS nontender no HSM no CC edema and erythema nonfocal weak Laboratory Tests 12/16/17 10:15: White Blood Count [Pending], Red Blood Count [Pending], Hemoglobin [Pending], Hematocrit [Pending], Mean Corpuscular Volume [Pending], Mean Corpuscular Hemoglobin [Pending], Mean Corpuscular Hemoglobin Concent [Pending], Red Cell Distribution Width [Pending], Platelet Count [Pending], Mean Platelet Volume [ Pending], Neutrophils (%) (Auto) [Pending], Lymphocytes (%) (Auto) [Pending], Monocytes (%) (Auto) [Pending], Eosinophils (%) (Auto) [Pending], Basophils (%) (Auto) [Pending], Sodium Level [Pending], Potassium Level [Pending], Chloride Level [Pending], Carbon Dioxide Level [Pending], Blood Urea Nitrogen [Pending], Creatinine [Pending], Estimat Glomerular Filtration Rate [Pending], Glucose Level [Pending], Calcium Level [Pending], Total Bilirubin [Pending], Aspartate Amino Transf (AST/SGOT) [Pending], Alanine Aminotransferase (ALT/SGPT) [Pending] , Alkaline Phosphatase [Pending], Total Protein [Pending], Albumin [Pending], Globulin [Pending] Current Medications Medications (Trade) Dose Ordered Sig/Sachin Route PRN Reason Start Time Stop Time Status Last Admin Dose Admin Acetaminophen (Tylenol) 650 mg Q4H PRN ORAL Mild Pain/Temp > 100.5 12/05/17 21:10 01/04/18 21:09 Al Hydroxide/Mg Hydroxide (Mylanta) 30 ml Q4H PRN ORAL Nausea & Vomiting 12/05/17 21:11 01/04/18 21:10 Albuterol/ Ipratropium (Albuterol/ Ipratropium) 3 ml Q4H PRN HHN Shortness of Breath 12/11/17 12:45 12/16/17 12:44 12/11/17 20:54 Albuterol/ Ipratropium (Albuterol/ Ipratropium) 3 ml Q4HRT HHN 12/11/17 23:00 12/16/17 22:59 12/16/17 07:41 Aspirin (Ecotrin) 81 mg DAILY ORAL 12/15/17 09:00 01/05/18 08:59 12/16/17 09:29 Atorvastatin Calcium (Lipitor) 10 mg BEDTIME ORAL 12/14/17 21:00 01/05/18 20:59 12/15/17 21:06 Colistimethate Sodium (Colistin *inhalation use only*) 75 mg Q12HR@10,22 INH 12/15/17 22:00 12/22/17 21:59 12/16/17 09:20 Diphenhydramine HCl (Benadryl) 50 mg Q4HR PRN ORAL Itching 12/11/17 16:30 01/10/18 16:29 12/13/17 00:16 Estrogens Conjugated (Premarin) 0.625 mg DAILY ORAL 12/15/17 09:00 01/06/18 08:59 12/16/17 09:30 Furosemide (Lasix) 40 mg DAILY ORAL 12/15/17 09:00 01/13/18 08:59 12/16/17 09:31 Magnesium Hydroxide (Mom) 30 ml DAILYPRN PRN ORAL Constipation 12/05/17 21:11 01/04/18 21:10 Metoprolol Tartrate (Lopressor) 25 mg Q12HR ORAL 12/14/17 21:00 01/13/18 20:59 12/15/17 21:07 Minocycline HCl (Minocin) 100 mg Q12HR ORAL 12/14/17 21:00 12/16/17 23:59 12/16/17 09:29 Montelukast Sodium (Singulair) 10 mg QPM ORAL 12/14/17 16:30 01/15/18 16:29 12/15/17 17:30 Pantoprazole (Protonix) 40 mg ACBREAKFAST ORAL 12/15/17 06:30 01/14/18 06:29 12/16/17 06:00 Prednisolone Acetate (Pred Forte) 1 drop QID RIGHT EYE 12/06/17 18:00 01/05/18 17:59 12/16/17 09:31 Salmeterol Xinafoate/ Fluticasone (Advair 250/50 Diskus) 1 puffs BIDRT INH 12/06/17 10:00 01/05/18 09:59 12/16/17 09:17 Triamcinolone Acetonide (Kenalog) 1 applic BID TOPIC 12/06/17 18:00 01/05/18 17:59 12/16/17 09:32 Shubham Rivera MD December 16, 2017 10:28
[2017-12-16 10:40] LABS: BASOPHILS % (AUTO) 1.4 % (0.0-2.0); EOSINOPHILS % (AUTO) 1.6 % (0.0-3.0); HEMATOCRIT 34.8 % (37.0-47.0); HEMOGLOBIN 11.2 G/DL (12.0-16.0); LYMPHOCYTES % (AUTO) 23.8 % (20.0-45.0); MEAN CORPUSCULAR VOLUME 90 FL (80-99); MONOCYTES % (AUTO) 6.5 % (1.0-10.0); NEUTROPHILS % (AUTO) 66.8 % (45.0-75.0); PLATELET COUNT 212 K/UL (150-450); RED BLOOD COUNT 3.89 M/UL (4.20-5.40); RED CELL DISTRIBUTION WIDTH 15.2 % (11.6-14.8)
[2017-12-16 11:06] LABS: ALANINE AMINOTRANSFERASE 19 U/L (12-78); ALBUMIN 2.4 G/DL (3.4-5.0); ALBUMIN/GLOBULIN RATIO 0.5 (1.0-2.7); ALKALINE PHOSPHATASE 86 U/L (46-116); ANION GAP 11 mmol/L (5-15); ASPARTATE AMINO TRANSFERASE 17 U/L (15-37); BILIRUBIN,TOTAL 0.3 MG/DL (0.2-1.0); BLOOD UREA NITROGEN 52 mg/dL (7-18); CALCIUM 8.9 MG/DL (8.5-10.1); CARBON DIOXIDE 25 MMOL/L (21-32); CHLORIDE 103 MMOL/L (98-107); CREATININE 1.4 MG/DL (0.55-1.30); POTASSIUM 3.9 MMOL/L (3.5-5.1); SODIUM 139 MMOL/L (136-145)
[2017-12-16 12:00] VITALS: BP 99/60
--- NOTE | 2017-12-16 14:39 | Infectious Diseases Prog Note ---
Assessment/Plan Assessment/Plan 1. left leg cellulitis with Acenitobacter 2. CHF 3. 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 Pneumonia with Acinetobacter P 1. continue minocycline and colistin inhaler Subjective ROS Limited/Unobtainable: No Constitutional: Reports: no symptoms Respiratory: Reports: productive cough Cardiovascular: Reports: no symptoms Gastrointestinal/Abdominal: Reports: no symptoms Genitourinary: Reports: no symptoms Allergies: Coded Allergies: IODINE (Verified Allergy, Unknown, 12/05/17) POVIDONE-IODINE (Verified Allergy, Unknown, 12/05/17) SOAP (Verified Allergy, Unknown, 12/05/17) Objective Vital Signs Last 24 Hour Vital Signs Date Time Temp Pulse Resp B/P (MAP) Pulse Ox O2 Delivery O2 Flow Rate FiO2 12/16/17 12:00 98.1 85 20 99/60 97 Nasal Cannula 2.0 98.1 12/16/17 11:20 68 20 100 Nasal Cannula 2.0 28 12/16/17 11:10 101 22 98 Nasal Cannula 2.0 28 12/16/17 09:30 71 22 99 Nasal Cannula 2.0 28 12/16/17 09:20 69 20 99 Nasal Cannula 2.0 28 12/16/17 09:19 68 20 94 Nasal Cannula 2.0 28 12/16/17 09:17 63 20 94 Nasal Cannula 2.0 28 12/16/17 09:00 69 110/60 12/16/17 08:00 98.1 78 19 110/60 93 Nasal Cannula 2.0 98.1 12/16/17 07:52 93 20 99 Nasal Cannula 2.0 28 12/16/17 07:42 74 20 94 Nasal Cannula 2.0 28 12/16/17 07:41 Nasal Cannula 2.0 28 12/16/17 07:40 94 Nasal Cannula 2.0 28 12/16/17 04:00 97.6 79 20 126/57 93 Nasal Cannula 97.6 12/16/17 03:40 71 18 98 Nasal Cannula 2.0 28 12/16/17 03:32 68 20 96 Nasal Cannula 2.0 28 12/16/17 00:10 75 20 98 Nasal Cannula 2.0 28 12/16/17 00:02 79 20 98 Nasal Cannula 2.0 28 12/16/17 00:00 98.1 76 20 104/48 92 Nasal Cannula 98.1 12/15/17 23:59 75 18 98 Nasal Cannula 2.0 28 12/15/17 23:51 72 20 95 Nasal Cannula 2.0 28 12/15/17 22:55 92 18 Nasal Cannula 2.0 28 12/15/17 21:07 83 108/67 12/15/17 20:00 97.6 83 22 108/67 94 Nasal Cannula 97.6 12/15/17 19:59 75 18 100 Nasal Cannula 2.0 28 12/15/17 19:51 71 20 94 Nasal Cannula 2.0 28 12/15/17 19:51 Nasal Cannula 2.0 28 12/15/17 19:51 94 Nasal Cannula 2.0 28 12/15/17 19:51 71 20 94 Nasal Cannula 2.0 28 12/15/17 19:50 71 22 94 Nasal Cannula 2.0 28 12/15/17 16:33 62 20 92 Nasal Cannula 2.0 28 12/15/17 16:00 98.4 85 18 140/70 94 Nasal Cannula 2.0 98.4 Height (Feet): 4 Height (Inches): 9.00 Weight (Pounds): 234 General Appearance: no acute distress HEENT: mucous membranes moist Respiratory/Chest: lungs clear Cardiovascular: normal rate, pacemaker/AICD Abdomen: soft, non tender Extremities: other - edema of legs Skin: rash, ulcers, other - bruises Neurologic/Psychiatric: alert, oriented x 3, responsive Laboratory Tests Test 12/16/17 10:15 White Blood Count 6.0 K/UL (4.8-10.8) Red Blood Count 3.89 M/UL (4.20-5.40) L Hemoglobin 11.2 G/DL (12.0-16.0) L Hematocrit 34.8 % (37.0-47.0) L Mean Corpuscular Volume 90 FL (80-99) Mean Corpuscular Hemoglobin 28.9 PG (27.0-31.0) Mean Corpuscular Hemoglobin Concent 32.3 G/DL (32.0-36.0) Red Cell Distribution Width 15.2 % (11.6-14.8) H Platelet Count 212 K/UL (150-450) Mean Platelet Volume 7.8 FL (6.5-10.1) Neutrophils (%) (Auto) 66.8 % (45.0-75.0) Lymphocytes (%) (Auto) 23.8 % (20.0-45.0) Monocytes (%) (Auto) 6.5 % (1.0-10.0) Eosinophils (%) (Auto) 1.6 % (0.0-3.0) Basophils (%) (Auto) 1.4 % (0.0-2.0) Sodium Level 139 MMOL/L (136-145) Potassium Level 3.9 MMOL/L (3.5-5.1) Chloride Level 103 MMOL/L (98-107) Carbon Dioxide Level 25 MMOL/L (21-32) Anion Gap 11 mmol/L (5-15) Blood Urea Nitrogen 52 mg/dL (7-18) H Creatinine 1.4 MG/DL (0.55-1.30) H Estimat Glomerular Filtration Rate mL/min (>60) Glucose Level 167 MG/DL (74-106) H Calcium Level 8.9 MG/DL (8.5-10.1) Total Bilirubin 0.3 MG/DL (0.2-1.0) Aspartate Amino Transf (AST/SGOT) 17 U/L (15-37) Alanine Aminotransferase (ALT/SGPT) 19 U/L (12-78) Alkaline Phosphatase 86 U/L (46-116) Total Protein 6.9 G/DL (6.4-8.2) Albumin 2.4 G/DL (3.4-5.0) L Globulin 4.5 g/dL Albumin/Globulin Ratio 0.5 (1.0-2.7) L Current Medications Medications (Trade) Dose Ordered Sig/Sachin Route PRN Reason Start Time Stop Time Status Last Admin Dose Admin Acetaminophen (Tylenol) 650 mg Q4H PRN ORAL Mild Pain/Temp > 100.5 12/05/17 21:10 01/04/18 21:09 Al Hydroxide/Mg Hydroxide (Mylanta) 30 ml Q4H PRN ORAL Nausea & Vomiting 12/05/17 21:11 01/04/18 21:10 Albuterol/ Ipratropium (Albuterol/ Ipratropium) 3 ml Q4HRT HHN 12/11/17 23:00 12/16/17 22:59 12/16/17 11:10 Aspirin (Ecotrin) 81 mg DAILY ORAL 12/15/17 09:00 01/05/18 08:59 12/16/17 09:29 Atorvastatin Calcium (Lipitor) 10 mg BEDTIME ORAL 12/14/17 21:00 01/05/18 20:59 12/15/17 21:06 Colistimethate Sodium (Colistin *inhalation use only*) 75 mg Q12HR@10,22 INH 12/15/17 22:00 12/22/17 21:59 12/16/17 09:20 Diphenhydramine HCl (Benadryl) 50 mg Q4HR PRN ORAL Itching 12/11/17 16:30 01/10/18 16:29 12/13/17 00:16 Estrogens Conjugated (Premarin) 0.625 mg DAILY ORAL 12/15/17 09:00 01/06/18 08:59 12/16/17 09:30 Furosemide (Lasix) 40 mg DAILY ORAL 12/15/17 09:00 01/13/18 08:59 12/16/17 09:31 Magnesium Hydroxide (Mom) 30 ml DAILYPRN PRN ORAL Constipation 12/05/17 21:11 01/04/18 21:10 Metoprolol Tartrate (Lopressor) 25 mg Q12HR ORAL 12/14/17 21:00 01/13/18 20:59 12/15/17 21:07 Minocycline HCl (Minocin) 100 mg Q12HR ORAL 12/14/17 21:00 12/16/17 23:59 12/16/17 09:29 Montelukast Sodium (Singulair) 10 mg QPM ORAL 12/14/17 16:30 01/15/18 16:29 12/15/17 17:30 Pantoprazole (Protonix) 40 mg ACBREAKFAST ORAL 12/15/17 06:30 01/14/18 06:29 12/16/17 06:00 Prednisolone Acetate (Pred Forte) 1 drop QID RIGHT EYE 12/06/17 18:00 01/05/18 17:59 12/16/17 09:31 Salmeterol Xinafoate/ Fluticasone (Advair 250/50 Diskus) 1 puffs BIDRT INH 12/06/17 10:00 01/05/18 09:59 12/16/17 09:17 Triamcinolone Acetonide (Kenalog) 1 applic BID TOPIC 12/06/17 18:00 01/05/18 17:59 12/16/17 09:32 LUDIVINA BRITO December 16, 2017 14:39
[2017-12-16] MEDS ORDERED: Albuterol/Ipratropium 3ml neb ONE (15:30)
[2017-12-16 16:00] VITALS: BP 146/67
[2017-12-16] MEDS: Montelukast 10mg tablet ORAL SCH (17:44)
[2017-12-16 20:00] VITALS: BP 145/55
[2017-12-17] VITALS: BP 119/57
--- NOTE | 2017-12-17 00:45 | Progress Note ---
DATE: 12/16/2017 CARDIOLOGY PROGRESS NOTE SUBJECTIVE: The patient is extremely depressed at the loss of her who three days ago at this facility. She has no chest pain, but is still very congested and short of breath. She is on oxygen with marginal saturations at time of 92% on two liters. OBJECTIVE: LUNGS: Diminished breath sounds. Few rhonchi and rales. HEART: Regular rhythm and rate. Normal S1, S2. ABDOMEN: Soft. EXTREMITIES: 1 to 2+ dependent edema with cellulitic changes. IMPRESSION: 1. Acute on chronic diastolic congestive heart failure. 2. Pneumonia. 3. Chronic obstructive pulmonary disease. 4. Paroxysmal bronchospasm. 5. Pleural effusion. 6. Permanent pacemaker. 7. Hypertensive cardiomyopathy. PLAN: 1. Trend natriuretic peptide assay and adjust diuretic dosing based on clinical parameters as well. 2. Continue respiratory therapy. 3. Recheck chest x-ray. 4. Discharge plan. 5. Continue anti-platelet therapy. Levi Wu M.D. DR: CORY JOB#: [id number] CC:
[2017-12-17 04:00] VITALS: BP 125/54
[2017-12-17] MEDS: Albuterol/Ipratropium 3ml neb HHN SCH ×5 (05:01→20:01)
[2017-12-17 08:00] VITALS: BP 127/54
[2017-12-17 08:21] LABS: BASOPHILS % (AUTO) 1.1 % (0.0-2.0); EOSINOPHILS % (AUTO) 2.5 % (0.0-3.0); HEMATOCRIT 31.3 % (37.0-47.0); HEMOGLOBIN 9.9 G/DL (12.0-16.0); LYMPHOCYTES % (AUTO) 27.3 % (20.0-45.0); MEAN CORPUSCULAR VOLUME 90 FL (80-99); MONOCYTES % (AUTO) 8.9 % (1.0-10.0); NEUTROPHILS % (AUTO) 60.2 % (45.0-75.0); PLATELET COUNT 191 K/UL (150-450); RED BLOOD COUNT 3.48 M/UL (4.20-5.40); RED CELL DISTRIBUTION WIDTH 15.2 % (11.6-14.8); WHITE BLOOD COUNT 5.6 K/UL (4.8-10.8)
--- NOTE | 2017-12-17 08:24 | General Progress Note ---
Assessment/Plan Problem List: (1) Renal insufficiency ICD Codes: N28.9 - Disorder of kidney and ureter, unspecified SNOMED: 265703109, 746489425 (2) CHF (congestive heart failure) ICD Codes: I50.9 - Heart failure, unspecified SNOMED: 84515823 Qualifiers: Qualified Codes: I50.9 - Heart failure, unspecified (3) Bilateral lower leg cellulitis ICD Codes: L03.116 - Cellulitis of left lower limb; L03.115 - Cellulitis of right lower limb SNOMED: 431444671 (4) Skin cancer ICD Codes: C44.90 - Unspecified malignant neoplasm of skin, unspecified SNOMED: 710178040 (5) Sepsis ICD Codes: A41.9 - Sepsis, unspecified organism SNOMED: 43209886 (6) Acute respiratory failure ICD Codes: J96.00 - Acute respiratory failure, unspecified whether with hypoxia or hypercapnia SNOMED: 83893905 (7) CAP (community acquired pneumonia) ICD Codes: J18.9 - Pneumonia, unspecified organism SNOMED: 232484756 Status: stable, not improved Assessment/Plan po lasix monitor renal fxn/labs/cxr resp rx mucinex abx per id ct chest pt/ot elevated legs skin care dc planning to snf await pulm/ID clearance Subjective ROS Limited/Unobtainable: No Constitutional: Reports: malaise, weakness HEENT: Reports: no symptoms Cardiovascular: Reports: chest pain Respiratory: Reports: cough, shortness of breath Gastrointestinal/Abdominal: Reports: no symptoms Genitourinary: Reports: no symptoms Neurologic/Psychiatric: Reports: no symptoms Endocrine: Reports: no symptoms Hematologic/Lymphatic: Reports: no symptoms Allergies: Coded Allergies: IODINE (Verified Allergy, Unknown, 12/05/17) POVIDONE-IODINE (Verified Allergy, Unknown, 12/05/17) SOAP (Verified Allergy, Unknown, 12/05/17) All Systems: reviewed and negative except above Subjective continue cough, chest tightness, wheezing and sob. does not feel any better. brown phlegm. no fever. on resp rx and steroids. Objective Last 24 Hour Vital Signs Date Time Temp Pulse Resp B/P (MAP) Pulse Ox O2 Delivery O2 Flow Rate FiO2 12/17/17 05:10 75 20 98 Nasal Cannula 2.0 28 12/17/17 05:02 78 20 97 Nasal Cannula 2.0 28 12/17/17 04:00 98.1 73 19 125/54 97 98.1 12/17/17 00:00 97.6 72 20 119/57 98 97.6 12/16/17 23:59 77 20 98 Nasal Cannula 2.0 28 12/16/17 23:52 78 20 98 Nasal Cannula 2.0 28 12/16/17 20:25 66 145/55 12/16/17 20:08 75 20 99 Nasal Cannula 2.0 28 12/16/17 20:01 Nasal Cannula 2.0 28 12/16/17 20:00 96 Nasal Cannula 2.0 28 12/16/17 20:00 98.3 66 20 145/55 97 98.3 12/16/17 20:00 74 20 96 Nasal Cannula 2.0 28 12/16/17 19:59 68 20 96 Nasal Cannula 2.0 28 12/16/17 19:58 78 20 96 Nasal Cannula 2.0 28 12/16/17 16:00 97.6 85 25 146/67 100 Nasal Cannula 2.0 97.6 12/16/17 15:43 94 20 100 Nasal Cannula 2.0 28 12/16/17 15:33 94 20 100 Nasal Cannula 2.0 28 12/16/17 12:00 98.1 85 20 99/60 97 Nasal Cannula 2.0 98.1 12/16/17 11:20 68 20 100 Nasal Cannula 2.0 28 12/16/17 11:10 101 22 98 Nasal Cannula 2.0 28 12/16/17 09:30 71 22 99 Nasal Cannula 2.0 28 12/16/17 09:20 69 20 99 Nasal Cannula 2.0 28 12/16/17 09:19 68 20 94 Nasal Cannula 2.0 28 12/16/17 09:17 63 20 94 Nasal Cannula 2.0 28 12/16/17 09:00 69 110/60 Intake and Output 12/16/17 12/17/17 19:00 07:00 Intake Total 600 ml Output Total 200 ml Balance 600 ml -200 ml Intake Oral 600 ml Output Urine Total 200 ml # Voids 4 4 # Bowel Movements 1 Laboratory Tests 12/16/17 10:15: White Blood Count 6.0, Red Blood Count 3.89L, Hemoglobin 11.2L, Hematocrit 34.8L , Mean Corpuscular Volume 90, Mean Corpuscular Hemoglobin 28.9, Mean Corpuscular Hemoglobin Concent 32.3, Red Cell Distribution Width 15.2H, Platelet Count 212, Mean Platelet Volume 7.8, Neutrophils (%) (Auto) 66.8, Lymphocytes (%) (Auto) 23.8, Monocytes (%) (Auto) 6.5, Eosinophils (%) (Auto) 1.6, Basophils (%) (Auto) 1.4, Sodium Level 139, Potassium Level 3.9, Chloride Level 103, Carbon Dioxide Level 25, Anion Gap 11, Blood Urea Nitrogen 52H, Creatinine 1.4H, Estimat Glomerular Filtration Rate , Glucose Level 167H, Calcium Level 8.9, Total Bilirubin 0.3, Aspartate Amino Transf (AST/SGOT) 17, Alanine Aminotransferase (ALT/SGPT) 19, Alkaline Phosphatase 86, Total Protein 6.9, Albumin 2.4L, Globulin 4.5, Albumin/Globulin Ratio 0.5L 12/17/17 06:40: White Blood Count [Pending], Red Blood Count [Pending], Hemoglobin [Pending], Hematocrit [Pending], Mean Corpuscular Volume [Pending], Mean Corpuscular Hemoglobin [Pending], Mean Corpuscular Hemoglobin Concent [Pending], Red Cell Distribution Width [Pending], Platelet Count [Pending], Mean Platelet Volume [ Pending], Neutrophils (%) (Auto) [Pending], Lymphocytes (%) (Auto) [Pending], Monocytes (%) (Auto) [Pending], Eosinophils (%) (Auto) [Pending], Basophils (%) (Auto) [Pending], Sodium Level [Pending], Potassium Level [Pending], Chloride Level [Pending], Carbon Dioxide Level [Pending], Blood Urea Nitrogen [Pending], Creatinine [Pending], Estimat Glomerular Filtration Rate [Pending], Glucose Level [Pending], Calcium Level [Pending], Total Bilirubin [Pending], Aspartate Amino Transf (AST/SGOT) [Pending], Alanine Aminotransferase (ALT/SGPT) [Pending] , Alkaline Phosphatase [Pending], Total Protein [Pending], Albumin [Pending], Globulin [Pending], Pro-B-Type Natriuretic Peptide [Pending] Height (Feet): 4 Height (Inches): 9.00 Weight (Pounds): 230 Objective General Appearance: WD/WN, alert Neck: supple Cardiovascular: normal rate, regular rhythm Respiratory/Chest: lungs clear Abdomen: normal bowel sounds, non tender, soft, no organomegaly Edema: mild edema 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
--- NOTE | 2017-12-17 08:32 | Pulmonology Progress Note ---
Assessment/Plan Assessment/Plan 1. Probable pulmonary edema. 2. Pulmonary congestion. 3. Possible underlying pneumonia, RLL infiltrate 4. Pacemaker. 5. Hypertension. 6. Asthma/COPD. 7. Mild pleural effusion. 8. Failure to thrive. 9. Cellulitis PLAN wound care ongoing CT chest ordered check sputum again- none available yet keep negative respiratory care oxygen stable for lower level of care will need SNF care- CM aware unable to care for self at home maintain isolation impression, plan, and exam edited and reviewed in detail care discussed with RN Subjective Allergies: Coded Allergies: IODINE (Verified Allergy, Unknown, 12/05/17) POVIDONE-IODINE (Verified Allergy, Unknown, 12/05/17) SOAP (Verified Allergy, Unknown, 12/05/17) Subjective care noted snf dispo noted on isolation still with congestion Objective Last 24 Hour Vital Signs Date Time Temp Pulse Resp B/P (MAP) Pulse Ox O2 Delivery O2 Flow Rate FiO2 12/17/17 05:10 75 20 98 Nasal Cannula 2.0 28 12/17/17 05:02 78 20 97 Nasal Cannula 2.0 28 12/17/17 04:00 98.1 73 19 125/54 97 98.1 12/17/17 00:00 97.6 72 20 119/57 98 97.6 12/16/17 23:59 77 20 98 Nasal Cannula 2.0 28 12/16/17 23:52 78 20 98 Nasal Cannula 2.0 28 12/16/17 20:25 66 145/55 12/16/17 20:08 75 20 99 Nasal Cannula 2.0 28 12/16/17 20:01 Nasal Cannula 2.0 28 12/16/17 20:00 96 Nasal Cannula 2.0 28 12/16/17 20:00 98.3 66 20 145/55 97 98.3 12/16/17 20:00 74 20 96 Nasal Cannula 2.0 28 12/16/17 19:59 68 20 96 Nasal Cannula 2.0 28 12/16/17 19:58 78 20 96 Nasal Cannula 2.0 28 12/16/17 16:00 97.6 85 25 146/67 100 Nasal Cannula 2.0 97.6 12/16/17 15:43 94 20 100 Nasal Cannula 2.0 28 12/16/17 15:33 94 20 100 Nasal Cannula 2.0 28 12/16/17 12:00 98.1 85 20 99/60 97 Nasal Cannula 2.0 98.1 12/16/17 11:20 68 20 100 Nasal Cannula 2.0 28 12/16/17 11:10 101 22 98 Nasal Cannula 2.0 28 12/16/17 09:30 71 22 99 Nasal Cannula 2.0 28 12/16/17 09:20 69 20 99 Nasal Cannula 2.0 28 12/16/17 09:19 68 20 94 Nasal Cannula 2.0 28 12/16/17 09:17 63 20 94 Nasal Cannula 2.0 28 12/16/17 09:00 69 110/60 Intake and Output 12/16/17 12/17/17 19:00 07:00 Intake Total 600 ml Output Total 200 ml Balance 600 ml -200 ml Intake Oral 600 ml Output Urine Total 200 ml # Voids 4 4 # Bowel Movements 1 Objective WDWN NAD reduced breath sounds bilaterally with scattered rhonchi [id number] without MRG NABS nontender no HSM no CC edema and erythema nonfocal weak reviewed and edited Laboratory Tests 12/16/17 10:15: White Blood Count 6.0, Red Blood Count 3.89L, Hemoglobin 11.2L, Hematocrit 34.8L , Mean Corpuscular Volume 90, Mean Corpuscular Hemoglobin 28.9, Mean Corpuscular Hemoglobin Concent 32.3, Red Cell Distribution Width 15.2H, Platelet Count 212, Mean Platelet Volume 7.8, Neutrophils (%) (Auto) 66.8, Lymphocytes (%) (Auto) 23.8, Monocytes (%) (Auto) 6.5, Eosinophils (%) (Auto) 1.6, Basophils (%) (Auto) 1.4, Sodium Level 139, Potassium Level 3.9, Chloride Level 103, Carbon Dioxide Level 25, Anion Gap 11, Blood Urea Nitrogen 52H, Creatinine 1.4H, Estimat Glomerular Filtration Rate , Glucose Level 167H, Calcium Level 8.9, Total Bilirubin 0.3, Aspartate Amino Transf (AST/SGOT) 17, Alanine Aminotransferase (ALT/SGPT) 19, Alkaline Phosphatase 86, Total Protein 6.9, Albumin 2.4L, Globulin 4.5, Albumin/Globulin Ratio 0.5L 12/17/17 06:40: White Blood Count 5.6, Red Blood Count 3.48L, Hemoglobin 9.9L, Hematocrit 31.3L , Mean Corpuscular Volume 90, Mean Corpuscular Hemoglobin 28.6, Mean Corpuscular Hemoglobin Concent 31.8L, Red Cell Distribution Width 15.2H, Platelet Count 191, Mean Platelet Volume 8.0, Neutrophils (%) (Auto) 60.2, Lymphocytes (%) (Auto) 27.3, Monocytes (%) (Auto) 8.9, Eosinophils (%) (Auto) 2.5, Basophils (%) (Auto) 1.1, Sodium Level [Pending], Potassium Level [Pending] , Chloride Level [Pending], Carbon Dioxide Level [Pending], Blood Urea Nitrogen [Pending], Creatinine [Pending], Estimat Glomerular Filtration Rate [Pending], Glucose Level [Pending], Calcium Level [Pending], Total Bilirubin [Pending], Aspartate Amino Transf (AST/SGOT) [Pending], Alanine Aminotransferase (ALT/SGPT ) [Pending], Alkaline Phosphatase [Pending], Total Protein [Pending], Albumin [ Pending], Globulin [Pending], Pro-B-Type Natriuretic Peptide [Pending] Current Medications Medications (Trade) Dose Ordered Sig/Sachin Route PRN Reason Start Time Stop Time Status Last Admin Dose Admin Acetaminophen (Tylenol) 650 mg Q4H PRN ORAL Mild Pain/Temp > 100.5 12/05/17 21:10 01/04/18 21:09 Al Hydroxide/Mg Hydroxide (Mylanta) 30 ml Q4H PRN ORAL Nausea & Vomiting 12/05/17 21:11 01/04/18 21:10 Albuterol/ Ipratropium (Albuterol/ Ipratropium) 3 ml Q4HRT HHN 12/17/17 05:00 12/22/17 04:59 12/17/17 05:01 Aspirin (Ecotrin) 81 mg DAILY ORAL 12/15/17 09:00 01/05/18 08:59 12/16/17 09:29 Atorvastatin Calcium (Lipitor) 10 mg BEDTIME ORAL 12/14/17 21:00 01/05/18 20:59 12/16/17 20:25 Colistimethate Sodium (Colistin *inhalation use only*) 75 mg Q12HR@10,22 INH 12/15/17 22:00 12/22/17 21:59 12/16/17 23:52 Diphenhydramine HCl (Benadryl) 50 mg Q4HR PRN ORAL Itching 12/11/17 16:30 01/10/18 16:29 12/13/17 00:16 Estrogens Conjugated (Premarin) 0.625 mg DAILY ORAL 12/15/17 09:00 01/06/18 08:59 12/16/17 09:30 Furosemide (Lasix) 40 mg DAILY ORAL 12/15/17 09:00 01/13/18 08:59 12/16/17 09:31 Magnesium Hydroxide (Mom) 30 ml DAILYPRN PRN ORAL Constipation 12/05/17 21:11 01/04/18 21:10 Metoprolol Tartrate (Lopressor) 25 mg Q12HR ORAL 12/14/17 21:00 01/13/18 20:59 12/16/17 20:25 Minocycline HCl (Minocin) 100 mg Q12HR ORAL 12/16/17 21:00 12/23/17 20:59 12/16/17 20:24 Montelukast Sodium (Singulair) 10 mg QPM ORAL 12/14/17 16:30 01/15/18 16:29 12/16/17 17:44 Pantoprazole (Protonix) 40 mg ACBREAKFAST ORAL 12/15/17 06:30 01/14/18 06:29 12/17/17 06:09 Prednisolone Acetate (Pred Forte) 1 drop QID RIGHT EYE 12/06/17 18:00 01/05/18 17:59 12/16/17 09:31 Salmeterol Xinafoate/ Fluticasone (Advair 250/50 Diskus) 1 puffs BIDRT INH 12/06/17 10:00 01/05/18 09:59 12/16/17 19:58 Triamcinolone Acetonide (Kenalog) 1 applic BID TOPIC 12/06/17 18:00 01/05/18 17:59 12/16/17 17:45 Shubham Rivera MD December 17, 2017 08:32
[2017-12-17 08:53] LABS: ALANINE AMINOTRANSFERASE 18 U/L (12-78); ALBUMIN 2.2 G/DL (3.4-5.0); ALBUMIN/GLOBULIN RATIO 0.6 (1.0-2.7); ALKALINE PHOSPHATASE 83 U/L (46-116); ANION GAP 6 mmol/L (5-15); ASPARTATE AMINO TRANSFERASE 12 U/L (15-37); BILIRUBIN,TOTAL 0.3 MG/DL (0.2-1.0); BLOOD UREA NITROGEN 51 mg/dL (7-18); CALCIUM 8.9 MG/DL (8.5-10.1); CARBON DIOXIDE 30 MMOL/L (21-32); CHLORIDE 106 MMOL/L (98-107); CREATININE 1.4 MG/DL (0.55-1.30); POTASSIUM 3.8 MMOL/L (3.5-5.1); SODIUM 142 MMOL/L (136-145)
[2017-12-17] MEDS: Furosemide 40mg tab ORAL SCH (09:21)
[2017-12-17] MEDS: Metoprolol 25mg tab ORAL SCH ×2 (09:21→21:30)
[2017-12-17] MEDS: Premarin tab 0.625MG ORAL SCH (09:21)
[2017-12-17] MEDS: Aspirin EC 81mg tab ORAL SCH (09:21)
[2017-12-17] MEDS: Pred Forte 1% Opth Susp 1ml RIGHT EYE SCH ×4 (09:22→21:00)
[2017-12-17] MEDS: Minocycline HCl 50mg cap ORAL SCH ×2 (09:22→21:30)
[2017-12-17] MEDS: Triamcinolone 0.1% 15gm Cr TOPIC SCH ×2 (09:23→17:51)
[2017-12-17] MEDS: Advair 250/50 Inhaler - 14 dose INH SCH ×2 (09:51→20:02)
[2017-12-17] MEDS: Colistin for inhalation INH SCH (09:51)
--- NOTE | 2017-12-17 10:50 | Infectious Diseases Prog Note ---
Assessment/Plan Assessment/Plan antibiotics : minocycline, inhaled colistin A 1. left leg cellulitis with acenitobacter 2. CHF 3. COPD 4. squamous cell carcinoma 5. acenitobacter pneumonia P 1. continue minocycline, inhaled colistin 2. will follow up cultures Subjective Constitutional: Denies: fever, chills Respiratory: Reports: shortness of breath, dry cough - decreased Gastrointestinal/Abdominal: Denies: nausea, vomiting, diarrhea Musculoskeletal: Reports: pain Allergies: Coded Allergies: IODINE (Verified Allergy, Unknown, 12/05/17) POVIDONE-IODINE (Verified Allergy, Unknown, 12/05/17) SOAP (Verified Allergy, Unknown, 12/05/17) Objective Vital Signs Last 24 Hour Vital Signs Date Time Temp Pulse Resp B/P (MAP) Pulse Ox O2 Delivery O2 Flow Rate FiO2 12/17/17 09:54 76 20 97 Nasal Cannula 2.0 28 12/17/17 09:54 74 20 96 Nasal Cannula 2.0 28 12/17/17 09:52 74 20 96 Nasal Cannula 2.0 28 12/17/17 09:51 76 22 96 Nasal Cannula 2.0 28 12/17/17 09:21 77 127/54 12/17/17 09:01 Nasal Cannula 2.0 28 12/17/17 09:01 98 Nasal Cannula 2.0 28 12/17/17 08:59 79 20 98 Nasal Cannula 2.0 28 12/17/17 08:00 97.3 77 16 127/54 96 Nasal Cannula 2.0 97.3 12/17/17 05:10 75 20 98 Nasal Cannula 2.0 28 12/17/17 05:02 78 20 97 Nasal Cannula 2.0 28 12/17/17 04:00 98.1 73 19 125/54 97 98.1 12/17/17 00:00 97.6 72 20 119/57 98 97.6 12/16/17 23:59 77 20 98 Nasal Cannula 2.0 28 12/16/17 23:52 78 20 98 Nasal Cannula 2.0 28 12/16/17 20:25 66 145/55 12/16/17 20:08 75 20 99 Nasal Cannula 2.0 28 12/16/17 20:01 Nasal Cannula 2.0 28 12/16/17 20:00 96 Nasal Cannula 2.0 28 12/16/17 20:00 98.3 66 20 145/55 97 98.3 12/16/17 20:00 74 20 96 Nasal Cannula 2.0 28 12/16/17 19:59 68 20 96 Nasal Cannula 2.0 28 12/16/17 19:58 78 20 96 Nasal Cannula 2.0 28 12/16/17 16:00 97.6 85 25 146/67 100 Nasal Cannula 2.0 97.6 12/16/17 15:43 94 20 100 Nasal Cannula 2.0 28 12/16/17 15:33 94 20 100 Nasal Cannula 2.0 28 12/16/17 12:00 98.1 85 20 99/60 97 Nasal Cannula 2.0 98.1 12/16/17 11:20 68 20 100 Nasal Cannula 2.0 28 12/16/17 11:10 101 22 98 Nasal Cannula 2.0 28 Height (Feet): 4 Height (Inches): 9.00 Weight (Pounds): 230 Respiratory/Chest: lungs clear Cardiovascular: normal rate, regular rhythm, no gallop/murmur Abdomen: soft, non tender Extremities: other - + edema, left leg ulcer decreased Laboratory Tests Test 12/17/17 06:40 White Blood Count 5.6 K/UL (4.8-10.8) Red Blood Count 3.48 M/UL (4.20-5.40) L Hemoglobin 9.9 G/DL (12.0-16.0) L Hematocrit 31.3 % (37.0-47.0) L Mean Corpuscular Volume 90 FL (80-99) Mean Corpuscular Hemoglobin 28.6 PG (27.0-31.0) Mean Corpuscular Hemoglobin Concent 31.8 G/DL (32.0-36.0) L Red Cell Distribution Width 15.2 % (11.6-14.8) H Platelet Count 191 K/UL (150-450) Mean Platelet Volume 8.0 FL (6.5-10.1) Neutrophils (%) (Auto) 60.2 % (45.0-75.0) Lymphocytes (%) (Auto) 27.3 % (20.0-45.0) Monocytes (%) (Auto) 8.9 % (1.0-10.0) Eosinophils (%) (Auto) 2.5 % (0.0-3.0) Basophils (%) (Auto) 1.1 % (0.0-2.0) Sodium Level 142 MMOL/L (136-145) Potassium Level 3.8 MMOL/L (3.5-5.1) Chloride Level 106 MMOL/L (98-107) Carbon Dioxide Level 30 MMOL/L (21-32) Anion Gap 6 mmol/L (5-15) Blood Urea Nitrogen 51 mg/dL (7-18) H Creatinine 1.4 MG/DL (0.55-1.30) H Estimat Glomerular Filtration Rate mL/min (>60) Glucose Level 103 MG/DL (74-106) Calcium Level 8.9 MG/DL (8.5-10.1) Total Bilirubin 0.3 MG/DL (0.2-1.0) Aspartate Amino Transf (AST/SGOT) 12 U/L (15-37) L Alanine Aminotransferase (ALT/SGPT) 18 U/L (12-78) Alkaline Phosphatase 83 U/L (46-116) Pro-B-Type Natriuretic Peptide 1442 pg/mL (0-125) H Total Protein 6.0 G/DL (6.4-8.2) L Albumin 2.2 G/DL (3.4-5.0) L Globulin 3.8 g/dL Albumin/Globulin Ratio 0.6 (1.0-2.7) L Current Medications Medications (Trade) Dose Ordered Sig/Sachin Route PRN Reason Start Time Stop Time Status Last Admin Dose Admin Acetaminophen (Tylenol) 650 mg Q4H PRN ORAL Mild Pain/Temp > 100.5 12/05/17 21:10 01/04/18 21:09 Al Hydroxide/Mg Hydroxide (Mylanta) 30 ml Q4H PRN ORAL Nausea & Vomiting 12/05/17 21:11 01/04/18 21:10 Albuterol/ Ipratropium (Albuterol/ Ipratropium) 3 ml Q4HRT HHN 12/17/17 05:00 12/22/17 04:59 12/17/17 08:58 Aspirin (Ecotrin) 81 mg DAILY ORAL 12/15/17 09:00 01/05/18 08:59 12/17/17 09:21 Atorvastatin Calcium (Lipitor) 10 mg BEDTIME ORAL 12/14/17 21:00 01/05/18 20:59 12/16/17 20:25 Colistimethate Sodium (Colistin *inhalation use only*) 75 mg Q12HR@10,22 INH 12/15/17 22:00 12/22/17 21:59 12/17/17 09:51 Diphenhydramine HCl (Benadryl) 50 mg Q4HR PRN ORAL Itching 12/11/17 16:30 01/10/18 16:29 12/13/17 00:16 Estrogens Conjugated (Premarin) 0.625 mg DAILY ORAL 12/15/17 09:00 01/06/18 08:59 12/17/17 09:21 Furosemide (Lasix) 40 mg DAILY ORAL 12/15/17 09:00 01/13/18 08:59 12/17/17 09:21 Magnesium Hydroxide (Mom) 30 ml DAILYPRN PRN ORAL Constipation 12/05/17 21:11 01/04/18 21:10 Metoprolol Tartrate (Lopressor) 25 mg Q12HR ORAL 12/14/17 21:00 01/13/18 20:59 12/17/17 09:21 Minocycline HCl (Minocin) 100 mg Q12HR ORAL 12/16/17 21:00 12/23/17 20:59 12/17/17 09:22 Montelukast Sodium (Singulair) 10 mg QPM ORAL 12/14/17 16:30 01/15/18 16:29 12/16/17 17:44 Pantoprazole (Protonix) 40 mg ACBREAKFAST ORAL 12/15/17 06:30 01/14/18 06:29 12/17/17 06:09 Prednisolone Acetate (Pred Forte) 1 drop QID RIGHT EYE 12/06/17 18:00 01/05/18 17:59 12/17/17 09:22 Salmeterol Xinafoate/ Fluticasone (Advair 250/50 Diskus) 1 puffs BIDRT INH 12/06/17 10:00 01/05/18 09:59 12/17/17 09:51 Triamcinolone Acetonide (Kenalog) 1 applic BID TOPIC 12/06/17 18:00 01/05/18 17:59 12/17/17 09:23 DEE DEE RANDHAWA December 17, 2017 10:50
--- NOTE | 2017-12-17 11:44 | Diagnostic Imaging Report ---
Indication: Shortness of breath Technique: One view of the chest Comparison: 12/10/2017 Findings: Right hilar vascular prominence is again noted. Lungs and pleural spaces are otherwise clear. Right chest pacemaker is again demonstrated Previously demonstrated right basilar infiltrate has cleared Impression: No definite acute process. Interim clearing of previously demonstrated right basilar infiltrate
[2017-12-17 12:00] VITALS: BP 125/67
--- NOTE | 2017-12-17 14:07 | Diagnostic Imaging Report ---
Clinical Indication: Cough, chest tightness, wheezing, shortness of breath Technique: Spiral acquisitions obtained through the chest. No IV contrast utilized, due to history of iodine allergy. Multiplanar reconstructions generated. Total dose length product 919.52 mGycm. CTDIvol(s) 28.55 mGy. Dose reduction achieved using automated exposure control Comparison: none Findings: The right middle lobe is completely atelectatic. No definite endobronchial obstructing lesion is seen, and air bronchograms artifact seen within the atelectatic lobe. One or 2 masslike opacities are seen in the inferomedial anterior right upper lobe. The more anterior of these is larger, measuring 17 mm in diameter Irregular confluent opacities are seen within the posterior aspect of the right lower lobe. Reticular and irregular opacities are seen in the posterior inferior right upper lobe and scattered throughout the right lower lobe. Similar-appearing but less extensive irregular and confluent opacities are seen in the left lower lobe. The left upper lobe is largely clear except for a few small nodular and irregular opacities in the inferior lingula. No definite effusions. There is right hilar vascular fullness. The heart size is normal. No pericardial effusion demonstrated. There is a pacemaker. No mediastinal or hilar mass or adenopathy. The right pulmonary artery is ectatic, measuring up to 28 mm in diameter. The thyroid demonstrates multiple calcifications and a 1 cm diameter right upper pole nodule. No axillary or chest wall mass or adenopathy. The bones demonstrate degenerative spondylosis changes. There is smooth thoracic kyphosis without focal compression abnormality. The included upper abdominal anatomy demonstrates gallstones. The pancreas is atrophic. A cyst is seen coming off of the upper pole of the left kidney. Impression: Complete atelectasis of the right middle lobe. Etiology not demonstrated Generalized hyperinflation, consistent with COPD Irregular and confluent bilateral parenchymal opacities, most notably within the right lower lobe. Appearance nonspecific, could represent acute infiltrate or other inflammatory process versus chronic postinflammatory changes. Neoplasm as etiology of any of these findings is also possible One or 2 masses within the anteromedial inferior right upper lobe. Largest measures 17 mm in diameter. Possibly postinflammatory, but appearance raises concern for neoplasm Ectatic right pulmonary artery, suggestive of but not diagnostic for pulmonary arterial hypertension 1 cm right upper pole thyroid nodule. Consider further evaluation with sonography Cholelithiasis Other findings as noted, including left upper pole renal cyst, thoracic kyphosis, degenerative spondylosis, pacemaker The CT scanner at [facility] is accredited by the [employer] and the scans are performed using protocols designed to limit radiation exposure to as low as reasonably achievable to attain images of sufficient resolution adequate for diagnostic evaluation.
[2017-12-17 16:07] VITALS: BP_SYST 112; BP_SYST 127; BP_DIAS 54; BP_DIAS 57
[2017-12-17] MEDS: Montelukast 10mg tablet ORAL SCH (16:54)
[2017-12-17 20:00] VITALS: BP 145/84
[2017-12-18] VITALS: BP 130/66
[2017-12-18] MEDS: Colistin for inhalation INH SCH ×3 (00:31→21:04)
[2017-12-18] MEDS: Albuterol/Ipratropium 3ml neb HHN SCH ×5 (00:32→20:50)
--- NOTE | 2017-12-18 03:00 | Progress Note ---
DATE: 12/17/2017 SUBJECTIVE: The patient is not improved. She continues to have cough, congestion, wheezing, and shortness of breath. She has brown sputum production. OBJECTIVE: VITAL SIGNS: Blood pressure 125/54, pulse 73, respirations 19, and she is afebrile. Intake and output is not fully obtained due to missed voiding. LUNGS: Coarse breath sounds. Scattered rhonchi. Few wheezes. HEART: Regular rhythm and rate. Normal S1, S2. A 1/6 systolic apical murmur. ABDOMEN: Soft. EXTREMITIES: 1+ edema. Wound site is drying. DIAGNOSTIC DATA: Chest x-ray today reveals no signs of congestive heart failure, improved right basilar infiltrate. IMPRESSION: 1. Acute on chronic diastolic congestive heart failure. 2. Healthcare-acquired pneumonia. 3. Paroxysmal bronchospasm. 4. Bronchospastic lung disease with exacerbation. 5. Hypertensive heart disease. 6. Permanent pacemaker. 7. Pleural effusion. 8. Lower extremity cellulitis with wound. 9. Chronic kidney disease. 10. Severe protein-calorie malnutrition. 11. Acute depression due to 's , likely aggravating medical condition. PLAN: 1. Continue antibiotics. 2. Inhaled bronchodilators. 3. Maintenance diuretic therapy. 4. Titrate antihypertensive and anti-failure regimen. 5. Psychiatric support. Levi Wu M.D. DR: CORY JOB#: [id number] CC:
[2017-12-18 04:00] VITALS: BP 115/58
--- NOTE | 2017-12-18 07:51 | General Progress Note ---
Assessment/Plan Problem List: (1) Renal insufficiency ICD Codes: N28.9 - Disorder of kidney and ureter, unspecified SNOMED: 960804782, 713234932 (2) CHF (congestive heart failure) ICD Codes: I50.9 - Heart failure, unspecified SNOMED: 03956233 Qualifiers: Qualified Codes: I50.9 - Heart failure, unspecified (3) Bilateral lower leg cellulitis ICD Codes: L03.116 - Cellulitis of left lower limb; L03.115 - Cellulitis of right lower limb SNOMED: 528472385 (4) Skin cancer ICD Codes: C44.90 - Unspecified malignant neoplasm of skin, unspecified SNOMED: 421676061 (5) Sepsis ICD Codes: A41.9 - Sepsis, unspecified organism SNOMED: 22661351 (6) Acute respiratory failure ICD Codes: J96.00 - Acute respiratory failure, unspecified whether with hypoxia or hypercapnia SNOMED: 10870671 (7) CAP (community acquired pneumonia) ICD Codes: J18.9 - Pneumonia, unspecified organism SNOMED: 683272319 Status: stable, not improved Assessment/Plan diuresis monitor renal fxn/labs/cxr resp rx mucinex abx per id ct chest reviewed- pulm follow up. ?bronch pt/ot elevated legs skin care dc planning to snf await pulm/ID clearance Subjective ROS Limited/Unobtainable: No Constitutional: Reports: weakness HEENT: Reports: no symptoms Cardiovascular: Reports: no symptoms Respiratory: Reports: cough, sputum Gastrointestinal/Abdominal: Reports: no symptoms Genitourinary: Reports: no symptoms Neurologic/Psychiatric: Reports: no symptoms Endocrine: Reports: no symptoms Hematologic/Lymphatic: Reports: no symptoms Allergies: Coded Allergies: IODINE (Verified Allergy, Unknown, 12/05/17) POVIDONE-IODINE (Verified Allergy, Unknown, 12/05/17) SOAP (Verified Allergy, Unknown, 12/05/17) All Systems: reviewed and negative except above Subjective does not feel well. brown productive cough/phlegm. CT with RML atelectasis and bilateral opacities/masses Objective Last 24 Hour Vital Signs Date Time Temp Pulse Resp B/P (MAP) Pulse Ox O2 Delivery O2 Flow Rate FiO2 12/18/17 07:25 84 18 98 Nasal Cannula 2.0 28 12/18/17 07:18 82 18 97 Nasal Cannula 2.0 28 12/18/17 04:00 98.2 64 18 115/58 97 98.2 12/18/17 03:30 Nasal Cannula 2.0 28 12/18/17 03:30 Nasal Cannula 2.0 28 12/18/17 00:00 97.3 75 19 130/66 100 97.3 12/17/17 23:30 80 18 95 Nasal Cannula 2.0 28 12/17/17 23:30 86 18 97 Nasal Cannula 2.0 28 12/17/17 21:30 94 145/84 12/17/17 20:00 97.4 71 19 145/84 98 97.4 12/17/17 20:00 92 18 95 Nasal Cannula 2.0 28 12/17/17 20:00 98 Nasal Cannula 2.0 28 12/17/17 20:00 74 20 96 Nasal Cannula 2.0 28 12/17/17 20:00 94 20 96 Nasal Cannula 2.0 28 12/17/17 20:00 92 20 95 Nasal Cannula 2.0 28 12/17/17 20:00 70 20 95 Nasal Cannula 2.0 28 12/17/17 20:00 94 18 97 Nasal Cannula 2.0 28 12/17/17 20:00 Nasal Cannula 2.0 28 12/17/17 16:07 97.7 76 16 112/57 98 Nasal Cannula 2.0 97.7 12/17/17 13:45 72 18 99 Nasal Cannula 2.0 28 12/17/17 13:35 71 18 96 Nasal Cannula 2.0 28 12/17/17 12:00 97.8 71 16 125/67 98 Nasal Cannula 2.0 97.8 12/17/17 09:54 76 20 97 Nasal Cannula 2.0 28 12/17/17 09:54 74 20 96 Nasal Cannula 2.0 28 12/17/17 09:52 74 20 96 Nasal Cannula 2.0 28 12/17/17 09:51 76 22 96 Nasal Cannula 2.0 28 12/17/17 09:21 77 127/54 12/17/17 09:01 Nasal Cannula 2.0 28 12/17/17 09:01 98 Nasal Cannula 2.0 28 12/17/17 08:59 79 20 98 Nasal Cannula 2.0 28 12/17/17 08:00 97.3 77 16 127/54 96 Nasal Cannula 2.0 97.3 Intake and Output 12/17/17 12/18/17 19:00 07:00 Intake Total 720 ml Balance 720 ml Intake Oral 720 ml # Voids 3 4 # Bowel Movements 2 1 Height (Feet): 4 Height (Inches): 9.00 Weight (Pounds): 237 Objective General Appearance: WD/WN, alert Neck: supple Cardiovascular: normal rate, regular rhythm Respiratory/Chest: lungs clear Abdomen: normal bowel sounds, non tender, soft, no organomegaly Edema: mild edema 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
[2017-12-18 08:00] VITALS: BP 151/63
[2017-12-18] MEDS: Premarin tab 0.625MG ORAL SCH (08:06)
[2017-12-18] MEDS: Furosemide 40mg tab ORAL SCH (08:06)
[2017-12-18] MEDS: Aspirin EC 81mg tab ORAL SCH (08:06)
[2017-12-18] MEDS: Metoprolol 25mg tab ORAL SCH ×2 (08:06→20:55)
[2017-12-18] MEDS: Pred Forte 1% Opth Susp 1ml RIGHT EYE SCH ×4 (08:07→20:55)
[2017-12-18] MEDS: Triamcinolone 0.1% 15gm Cr TOPIC SCH ×2 (08:07→18:34)
[2017-12-18] MEDS: Minocycline HCl 50mg cap ORAL SCH ×2 (08:07→20:54)
--- NOTE | 2017-12-18 08:49 | Pulmonology Progress Note ---
Assessment/Plan Assessment/Plan 1. Probable pulmonary edema. 2. Pulmonary congestion. 3. Possible underlying pneumonia, RLL infiltrate 4. Pacemaker. 5. Hypertension. 6. Asthma/COPD. 7. Mild pleural effusion. 8. Failure to thrive. 9. Cellulitis 10.CT chest with RML atelectasis, nodule, hyperinflation PLAN wound care ongoing CT chest reviewed MDR keep negative respiratory care oxygen therapy stable for lower level of care ? outpatient bronch unable to care for self at home maintain isolation impression, plan, and exam edited and reviewed in detail care discussed with RN Subjective Allergies: Coded Allergies: IODINE (Verified Allergy, Unknown, 12/05/17) POVIDONE-IODINE (Verified Allergy, Unknown, 12/05/17) SOAP (Verified Allergy, Unknown, 12/05/17) Subjective care noted CT chest reviewed on isolation still with congestion Objective Last 24 Hour Vital Signs Date Time Temp Pulse Resp B/P (MAP) Pulse Ox O2 Delivery O2 Flow Rate FiO2 12/18/17 08:06 76 151/63 12/18/17 07:25 84 18 98 Nasal Cannula 2.0 28 12/18/17 07:18 82 18 97 Nasal Cannula 2.0 28 12/18/17 04:00 98.2 64 18 115/58 97 98.2 12/18/17 03:30 Nasal Cannula 2.0 28 12/18/17 03:30 Nasal Cannula 2.0 28 12/18/17 00:00 97.3 75 19 130/66 100 97.3 12/17/17 23:30 80 18 95 Nasal Cannula 2.0 28 12/17/17 23:30 86 18 97 Nasal Cannula 2.0 28 12/17/17 21:30 94 145/84 12/17/17 20:00 97.4 71 19 145/84 98 97.4 12/17/17 20:00 92 18 95 Nasal Cannula 2.0 28 12/17/17 20:00 98 Nasal Cannula 2.0 28 12/17/17 20:00 74 20 96 Nasal Cannula 2.0 28 12/17/17 20:00 94 20 96 Nasal Cannula 2.0 28 12/17/17 20:00 92 20 95 Nasal Cannula 2.0 28 12/17/17 20:00 70 20 95 Nasal Cannula 2.0 28 12/17/17 20:00 94 18 97 Nasal Cannula 2.0 28 12/17/17 20:00 Nasal Cannula 2.0 28 12/17/17 16:07 97.7 76 16 112/57 98 Nasal Cannula 2.0 97.7 12/17/17 13:45 72 18 99 Nasal Cannula 2.0 28 12/17/17 13:35 71 18 96 Nasal Cannula 2.0 28 12/17/17 12:00 97.8 71 16 125/67 98 Nasal Cannula 2.0 97.8 12/17/17 09:54 76 20 97 Nasal Cannula 2.0 28 12/17/17 09:54 74 20 96 Nasal Cannula 2.0 28 12/17/17 09:52 74 20 96 Nasal Cannula 2.0 28 12/17/17 09:51 76 22 96 Nasal Cannula 2.0 28 12/17/17 09:21 77 127/54 12/17/17 09:01 Nasal Cannula 2.0 28 12/17/17 09:01 98 Nasal Cannula 2.0 28 12/17/17 08:59 79 20 98 Nasal Cannula 2.0 28 Intake and Output 12/17/17 12/18/17 19:00 07:00 Intake Total 720 ml Balance 720 ml Intake Oral 720 ml # Voids 3 4 # Bowel Movements 2 1 Objective WDWN NAD reduced breath sounds bilaterally with scattered rhonchi [id number] without MRG NABS nontender no HSM no CC edema and erythema nonfocal weak reviewed and edited Current Medications Medications (Trade) Dose Ordered Sig/Sachin Route PRN Reason Start Time Stop Time Status Last Admin Dose Admin Acetaminophen (Tylenol) 650 mg Q4H PRN ORAL Mild Pain/Temp > 100.5 12/05/17 21:10 01/04/18 21:09 Al Hydroxide/Mg Hydroxide (Mylanta) 30 ml Q4H PRN ORAL Nausea & Vomiting 12/05/17 21:11 01/04/18 21:10 Albuterol/ Ipratropium (Albuterol/ Ipratropium) 3 ml Q4HRT HHN 12/17/17 05:00 12/22/17 04:59 12/18/17 07:32 Aspirin (Ecotrin) 81 mg DAILY ORAL 12/15/17 09:00 01/05/18 08:59 12/18/17 08:06 Atorvastatin Calcium (Lipitor) 10 mg BEDTIME ORAL 12/14/17 21:00 01/05/18 20:59 12/17/17 21:30 Colistimethate Sodium (Colistin *inhalation use only*) 75 mg Q12HR@10,22 INH 12/15/17 22:00 12/22/17 21:59 12/18/17 00:31 Diphenhydramine HCl (Benadryl) 50 mg Q4HR PRN ORAL Itching 12/11/17 16:30 01/10/18 16:29 12/13/17 00:16 Estrogens Conjugated (Premarin) 0.625 mg DAILY ORAL 12/15/17 09:00 01/06/18 08:59 12/18/17 08:06 Furosemide (Lasix) 40 mg DAILY ORAL 12/15/17 09:00 01/13/18 08:59 12/18/17 08:06 Magnesium Hydroxide (Mom) 30 ml DAILYPRN PRN ORAL Constipation 12/05/17 21:11 01/04/18 21:10 Metoprolol Tartrate (Lopressor) 25 mg Q12HR ORAL 12/14/17 21:00 01/13/18 20:59 12/18/17 08:06 Minocycline HCl (Minocin) 100 mg Q12HR ORAL 12/16/17 21:00 12/23/17 20:59 12/18/17 08:07 Montelukast Sodium (Singulair) 10 mg QPM ORAL 12/14/17 16:30 01/15/18 16:29 12/17/17 16:54 Pantoprazole (Protonix) 40 mg ACBREAKFAST ORAL 12/15/17 06:30 01/14/18 06:29 12/17/17 06:09 Prednisolone Acetate (Pred Forte) 1 drop QID RIGHT EYE 12/06/17 18:00 01/05/18 17:59 12/18/17 08:07 Salmeterol Xinafoate/ Fluticasone (Advair 250/50 Diskus) 1 puffs BIDRT INH 12/06/17 10:00 01/05/18 09:59 12/17/17 20:02 Triamcinolone Acetonide (Kenalog) 1 applic BID TOPIC 12/06/17 18:00 01/05/18 17:59 12/18/17 08:07 Shubham Rivera MD December 18, 2017 08:49
[2017-12-18] MEDS: Advair 250/50 Inhaler - 14 dose INH SCH ×2 (12:57→21:05)
--- NOTE | 2017-12-18 13:40 | Infectious Diseases Prog Note ---
Assessment/Plan Assessment/Plan 1. left leg cellulitis with Acenitobacter 2. CHF 3. 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 Pneumonia with Acinetobacter 7. RML atelectasis P 1. continue minocycline and colistin inhaler 2. plan by financial coach Subjective ROS Limited/Unobtainable: No Constitutional: Reports: no symptoms Respiratory: Reports: productive cough Cardiovascular: Reports: no symptoms Gastrointestinal/Abdominal: Reports: no symptoms Genitourinary: Reports: no symptoms Allergies: Coded Allergies: IODINE (Verified Allergy, Unknown, 12/05/17) POVIDONE-IODINE (Verified Allergy, Unknown, 12/05/17) SOAP (Verified Allergy, Unknown, 12/05/17) Objective Vital Signs Last 24 Hour Vital Signs Date Time Temp Pulse Resp B/P (MAP) Pulse Ox O2 Delivery O2 Flow Rate FiO2 12/18/17 13:04 76 20 96 Nasal Cannula 2.0 28 12/18/17 13:04 76 20 96 Nasal Cannula 2.0 28 12/18/17 13:02 72 20 96 Nasal Cannula 2.0 28 12/18/17 13:01 96 Nasal Cannula 2.0 28 12/18/17 13:01 92 20 96 Nasal Cannula 2.0 28 12/18/17 13:01 Nasal Cannula 2.0 28 12/18/17 13:00 90 18 97 Nasal Cannula 2.0 28 12/18/17 08:06 76 151/63 12/18/17 08:00 97.7 76 16 151/63 96 Nasal Cannula 2.0 97.7 12/18/17 07:25 84 18 98 Nasal Cannula 2.0 28 12/18/17 07:18 82 18 97 Nasal Cannula 2.0 28 12/18/17 04:00 98.2 64 18 115/58 97 98.2 12/18/17 03:30 Nasal Cannula 2.0 28 12/18/17 03:30 Nasal Cannula 2.0 28 12/18/17 00:00 97.3 75 19 130/66 100 97.3 12/17/17 23:30 80 18 95 Nasal Cannula 2.0 28 12/17/17 23:30 86 18 97 Nasal Cannula 2.0 28 12/17/17 21:30 94 145/84 12/17/17 20:00 97.4 71 19 145/84 98 97.4 12/17/17 20:00 92 18 95 Nasal Cannula 2.0 28 12/17/17 20:00 98 Nasal Cannula 2.0 28 12/17/17 20:00 74 20 96 Nasal Cannula 2.0 28 12/17/17 20:00 94 20 96 Nasal Cannula 2.0 28 12/17/17 20:00 92 20 95 Nasal Cannula 2.0 28 12/17/17 20:00 70 20 95 Nasal Cannula 2.0 28 12/17/17 20:00 94 18 97 Nasal Cannula 2.0 28 12/17/17 20:00 Nasal Cannula 2.0 28 12/17/17 16:07 97.7 76 16 112/57 98 Nasal Cannula 2.0 97.7 12/17/17 13:45 72 18 99 Nasal Cannula 2.0 28 Height (Feet): 4 Height (Inches): 9.00 Weight (Pounds): 237 General Appearance: other - obese HEENT: mucous membranes moist Respiratory/Chest: decreased breath sounds Cardiovascular: normal rate Abdomen: soft, non tender Extremities: other - edema of legs Skin: rash, ulcers Neurologic/Psychiatric: alert, oriented x 3, responsive Current Medications Medications (Trade) Dose Ordered Sig/Sachin Route PRN Reason Start Time Stop Time Status Last Admin Dose Admin Acetaminophen (Tylenol) 650 mg Q4H PRN ORAL Mild Pain/Temp > 100.5 12/05/17 21:10 01/04/18 21:09 Al Hydroxide/Mg Hydroxide (Mylanta) 30 ml Q4H PRN ORAL Nausea & Vomiting 12/05/17 21:11 01/04/18 21:10 Albuterol/ Ipratropium (Albuterol/ Ipratropium) 3 ml Q4HRT HHN 12/17/17 05:00 12/22/17 04:59 12/18/17 12:55 Aspirin (Ecotrin) 81 mg DAILY ORAL 12/15/17 09:00 01/05/18 08:59 12/18/17 08:06 Atorvastatin Calcium (Lipitor) 10 mg BEDTIME ORAL 12/14/17 21:00 01/05/18 20:59 12/17/17 21:30 Colistimethate Sodium (Colistin *inhalation use only*) 75 mg Q12HR@10,22 INH 12/15/17 22:00 12/22/17 21:59 12/18/17 00:31 Diphenhydramine HCl (Benadryl) 50 mg Q4HR PRN ORAL Itching 12/11/17 16:30 01/10/18 16:29 12/13/17 00:16 Estrogens Conjugated (Premarin) 0.625 mg DAILY ORAL 12/15/17 09:00 01/06/18 08:59 12/18/17 08:06 Furosemide (Lasix) 40 mg DAILY ORAL 12/15/17 09:00 01/13/18 08:59 12/18/17 08:06 Magnesium Hydroxide (Mom) 30 ml DAILYPRN PRN ORAL Constipation 12/05/17 21:11 01/04/18 21:10 Metoprolol Tartrate (Lopressor) 25 mg Q12HR ORAL 12/14/17 21:00 01/13/18 20:59 12/18/17 08:06 Minocycline HCl (Minocin) 100 mg Q12HR ORAL 12/16/17 21:00 12/23/17 20:59 12/18/17 08:07 Montelukast Sodium (Singulair) 10 mg QPM ORAL 12/14/17 16:30 01/15/18 16:29 12/17/17 16:54 Pantoprazole (Protonix) 40 mg ACBREAKFAST ORAL 12/15/17 06:30 01/14/18 06:29 12/17/17 06:09 Prednisolone Acetate (Pred Forte) 1 drop QID RIGHT EYE 12/06/17 18:00 01/05/18 17:59 12/18/17 08:07 Salmeterol Xinafoate/ Fluticasone (Advair 250/50 Diskus) 1 puffs BIDRT INH 12/06/17 10:00 01/05/18 09:59 12/18/17 12:57 Triamcinolone Acetonide (Kenalog) 1 applic BID TOPIC 12/06/17 18:00 01/05/18 17:59 12/18/17 08:07 LUDIVINA BRITO December 18, 2017 13:40
[2017-12-18 16:00] VITALS: BP 110/58
[2017-12-18] MEDS: Montelukast 10mg tablet ORAL SCH (16:49)
[2017-12-18 19:58] VITALS: BP 132/61
[2017-12-19] VITALS: BP 136/66
--- NOTE | 2017-12-19 00:30 | Progress Note ---
DATE: 12/18/2017 CARDIOLOGY PROGRESS NOTE SUBJECTIVE: The patient remains with congestion and shortness of breath. She is on isolation now due to MRSA. OBJECTIVE: VITAL SIGNS: Blood pressure 151/63, pulse 76, and respiratory rate 18. LUNGS: Coarse breath sounds. Scattered rhonchi. Few wheezes. CARDIAC: Regular rhythm and rate. Normal S1 and S2. Fourth heart sound. ABDOMEN: Soft. EXTREMITIES: There is 1+ edema. Decreasing erythema of the lower extremities. Wound site with dressing on the left leg. IMPRESSION: 1. COPD exacerbation. 2. Bronchospasm. 3. Healthcare-acquired pneumonia. 4. Acute on chronic diastolic congestive heart failure. 5. Severe protein-calorie malnutrition. 6. Acute on chronic kidney disease. PLAN: 1. Diuresis. 2. Respiratory hygiene. 3. May need bronchoscopy. 4. Continue isolation. 5. Skin care. 6. DVT prophylaxis. Levi Wu M.D. DR: ALCIDES JOB#: [id number] CC:
[2017-12-19] MEDS: Albuterol/Ipratropium 3ml neb HHN SCH ×7 (01:10→23:13)
[2017-12-19 04:00] VITALS: BP 102/55
[2017-12-19 07:42] LABS: BASOPHILS % (AUTO) 1.2 % (0.0-2.0); EOSINOPHILS % (AUTO) 2.8 % (0.0-3.0); HEMATOCRIT 32.3 % (37.0-47.0); HEMOGLOBIN 10.2 G/DL (12.0-16.0); LYMPHOCYTES % (AUTO) 30.4 % (20.0-45.0); MEAN CORPUSCULAR VOLUME 90 FL (80-99); MONOCYTES % (AUTO) 8.5 % (1.0-10.0); NEUTROPHILS % (AUTO) 57.1 % (45.0-75.0); PLATELET COUNT 175 K/UL (150-450); RED CELL DISTRIBUTION WIDTH 14.7 % (11.6-14.8); WHITE BLOOD COUNT 5.3 K/UL (4.8-10.8)
--- NOTE | 2017-12-19 07:46 | General Progress Note ---
Assessment/Plan Problem List: (1) Renal insufficiency ICD Codes: N28.9 - Disorder of kidney and ureter, unspecified SNOMED: 487262144, 807514730 (2) CHF (congestive heart failure) ICD Codes: I50.9 - Heart failure, unspecified SNOMED: 06931442 Qualifiers: Qualified Codes: I50.9 - Heart failure, unspecified (3) Bilateral lower leg cellulitis ICD Codes: L03.116 - Cellulitis of left lower limb; L03.115 - Cellulitis of right lower limb SNOMED: 097737289 (4) Skin cancer ICD Codes: C44.90 - Unspecified malignant neoplasm of skin, unspecified SNOMED: 906102741 (5) Sepsis ICD Codes: A41.9 - Sepsis, unspecified organism SNOMED: 29383156 (6) Acute respiratory failure ICD Codes: J96.00 - Acute respiratory failure, unspecified whether with hypoxia or hypercapnia SNOMED: 50565881 (7) CAP (community acquired pneumonia) ICD Codes: J18.9 - Pneumonia, unspecified organism SNOMED: 974814048 Status: stable, progressing Assessment/Plan diuresis monitor renal fxn/labs/cxr resp rx chest physiotherapy abx per id pt/ot skin care dc planning to snf await pulm/ID clearance Subjective ROS Limited/Unobtainable: No Constitutional: Reports: malaise, weakness HEENT: Reports: no symptoms Cardiovascular: Reports: no symptoms Respiratory: Reports: cough, shortness of breath, sputum Gastrointestinal/Abdominal: Reports: no symptoms Genitourinary: Reports: no symptoms Neurologic/Psychiatric: Reports: no symptoms Endocrine: Reports: no symptoms Hematologic/Lymphatic: Reports: no symptoms Allergies: Coded Allergies: IODINE (Verified Allergy, Unknown, 12/05/17) POVIDONE-IODINE (Verified Allergy, Unknown, 12/05/17) SOAP (Verified Allergy, Unknown, 12/05/17) All Systems: reviewed and negative except above Subjective no events. c/o congestion nd productive cough. chest PT added by pulm. on resp rx, iv abx Objective Last 24 Hour Vital Signs Date Time Temp Pulse Resp B/P (MAP) Pulse Ox O2 Delivery O2 Flow Rate FiO2 12/19/17 04:04 75 18 99 Nasal Cannula 2.0 28 12/19/17 04:00 98.0 87 20 102/55 96 98.0 12/19/17 03:53 71 18 96 Nasal Cannula 2.0 28 12/19/17 01:11 81 18 98 Nasal Cannula 2.0 28 12/19/17 01:04 85 18 96 Nasal Cannula 2.0 28 12/19/17 00:00 98.1 85 20 136/66 94 98.1 12/18/17 21:12 81 18 97 Nasal Cannula 2.0 28 12/18/17 21:05 86 20 97 Nasal Cannula 2.0 28 12/18/17 21:05 88 18 96 Nasal Cannula 2.0 28 12/18/17 21:00 83 18 96 Nasal Cannula 2.0 28 12/18/17 20:55 89 132/69 12/18/17 19:58 97.7 89 18 132/61 92 97.7 12/18/17 19:29 97 Nasal Cannula 2.0 28 12/18/17 19:29 Nasal Cannula 2.0 28 12/18/17 19:05 Nasal Cannula 2.0 28 12/18/17 19:05 88 18 96 Nasal Cannula 2.0 28 12/18/17 16:00 97.7 71 17 110/58 99 Nasal Cannula 2.0 97.7 12/18/17 15:24 84 18 99 Nasal Cannula 2.0 28 12/18/17 15:17 80 20 97 Nasal Cannula 2.0 28 12/18/17 13:10 86 18 99 Nasal Cannula 2.0 28 12/18/17 13:04 76 20 96 Nasal Cannula 2.0 28 12/18/17 13:04 76 20 96 Nasal Cannula 2.0 28 12/18/17 13:02 72 20 96 Nasal Cannula 2.0 28 12/18/17 13:01 96 Nasal Cannula 2.0 28 12/18/17 13:01 92 20 96 Nasal Cannula 2.0 28 12/18/17 13:01 Nasal Cannula 2.0 28 12/18/17 13:00 90 18 97 Nasal Cannula 2.0 28 12/18/17 08:06 76 151/63 12/18/17 08:00 97.7 76 16 151/63 96 Nasal Cannula 2.0 97.7 Intake and Output 12/18/17 12/19/17 19:00 07:00 Intake Total 1000 ml 1180 ml Output Total 300 ml Balance 1000 ml 880 ml Intake Oral 1180 ml Other 1000 ml Output Urine Total 300 ml # Voids 3 5 # Bowel Movements 2 2 Laboratory Tests 12/19/17 05:50: White Blood Count [Pending], Red Blood Count [Pending], Hemoglobin [Pending], Hematocrit [Pending], Mean Corpuscular Volume [Pending], Mean Corpuscular Hemoglobin [Pending], Mean Corpuscular Hemoglobin Concent [Pending], Red Cell Distribution Width [Pending], Platelet Count [Pending], Mean Platelet Volume [ Pending], Neutrophils (%) (Auto) [Pending], Lymphocytes (%) (Auto) [Pending], Monocytes (%) (Auto) [Pending], Eosinophils (%) (Auto) [Pending], Basophils (%) (Auto) [Pending], Sodium Level [Pending], Potassium Level [Pending], Chloride Level [Pending], Carbon Dioxide Level [Pending], Blood Urea Nitrogen [Pending], Creatinine [Pending], Estimat Glomerular Filtration Rate [Pending], Glucose Level [Pending], Calcium Level [Pending], Total Bilirubin [Pending], Aspartate Amino Transf (AST/SGOT) [Pending], Alanine Aminotransferase (ALT/SGPT) [Pending] , Alkaline Phosphatase [Pending], Pro-B-Type Natriuretic Peptide [Pending], Total Protein [Pending], Albumin [Pending], Globulin [Pending] Height (Feet): 4 Height (Inches): 9.00 Weight (Pounds): 230 Objective General Appearance: WD/WN, alert Neck: supple Cardiovascular: normal rate, regular rhythm Respiratory/Chest: lungs clear Abdomen: normal bowel sounds, non tender, soft, no organomegaly Edema: mild edema 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
[2017-12-19 08:00] VITALS: BP 115/71
[2017-12-19 08:27] LABS: ALANINE AMINOTRANSFERASE 18 U/L (12-78); ALBUMIN 2.2 G/DL (3.4-5.0); ALBUMIN/GLOBULIN RATIO 0.6 (1.0-2.7); ALKALINE PHOSPHATASE 91 U/L (46-116); ANION GAP 7 mmol/L (5-15); ASPARTATE AMINO TRANSFERASE 14 U/L (15-37); BILIRUBIN,TOTAL 0.3 MG/DL (0.2-1.0); BLOOD UREA NITROGEN 46 mg/dL (7-18); CALCIUM 8.5 MG/DL (8.5-10.1); CARBON DIOXIDE 30 MMOL/L (21-32); CHLORIDE 105 MMOL/L (98-107); CREATININE 1.2 MG/DL (0.55-1.30); POTASSIUM 3.8 MMOL/L (3.5-5.1); SODIUM 142 MMOL/L (136-145)
[2017-12-19] MEDS: Aspirin EC 81mg tab ORAL SCH (08:52)
[2017-12-19] MEDS: Metoprolol 25mg tab ORAL SCH ×2 (08:53→21:33)
[2017-12-19] MEDS: Premarin tab 0.625MG ORAL SCH (08:53)
[2017-12-19] MEDS: Minocycline HCl 50mg cap ORAL SCH ×2 (08:54→21:33)
[2017-12-19] MEDS: Furosemide 40mg tab ORAL SCH (08:54)
[2017-12-19] MEDS: Pred Forte 1% Opth Susp 1ml RIGHT EYE SCH ×4 (08:55→21:33)
[2017-12-19] MEDS: Triamcinolone 0.1% 15gm Cr TOPIC SCH ×2 (08:55→17:20)
[2017-12-19] MEDS: Advair 250/50 Inhaler - 14 dose INH SCH ×2 (10:00→19:57)
[2017-12-19] MEDS: Colistin for inhalation INH SCH ×2 (10:24→19:57)
--- NOTE | 2017-12-19 10:59 | Infectious Diseases Prog Note ---
Assessment/Plan Assessment/Plan 1. left leg cellulitis with Acinetobacter 2. CHF 3. 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 Pneumonia with Acinetobacter 7. RML atelectasis P 1. continue minocycline and colistin inhaler X 3 days 2. agree with discharge Subjective ROS Limited/Unobtainable: Yes Constitutional: Reports: no symptoms Respiratory: Reports: productive cough Gastrointestinal/Abdominal: Reports: no symptoms Genitourinary: Reports: no symptoms Allergies: Coded Allergies: IODINE (Verified Allergy, Unknown, 12/05/17) POVIDONE-IODINE (Verified Allergy, Unknown, 12/05/17) SOAP (Verified Allergy, Unknown, 12/05/17) Objective Vital Signs Last 24 Hour Vital Signs Date Time Temp Pulse Resp B/P (MAP) Pulse Ox O2 Delivery O2 Flow Rate FiO2 12/19/17 08:53 88 115/71 12/19/17 08:00 97.4 88 17 115/71 99 Nasal Cannula 2.0 97.4 12/19/17 07:30 98 Nasal Cannula 2.0 28 12/19/17 07:30 Nasal Cannula 2.0 28 12/19/17 07:30 Nasal Cannula 12/19/17 07:30 Nasal Cannula 12/19/17 04:04 75 18 99 Nasal Cannula 2.0 28 12/19/17 04:00 98.0 87 20 102/55 96 98.0 12/19/17 03:53 71 18 96 Nasal Cannula 2.0 28 12/19/17 01:11 81 18 98 Nasal Cannula 2.0 28 12/19/17 01:04 85 18 96 Nasal Cannula 2.0 28 12/19/17 00:00 98.1 85 20 136/66 94 98.1 12/18/17 21:12 81 18 97 Nasal Cannula 2.0 28 12/18/17 21:05 86 20 97 Nasal Cannula 2.0 28 12/18/17 21:05 88 18 96 Nasal Cannula 2.0 28 12/18/17 21:00 83 18 96 Nasal Cannula 2.0 28 12/18/17 20:55 89 132/69 12/18/17 19:58 97.7 89 18 132/61 92 97.7 12/18/17 19:29 97 Nasal Cannula 2.0 28 12/18/17 19:29 Nasal Cannula 2.0 28 12/18/17 19:05 Nasal Cannula 2.0 28 12/18/17 19:05 88 18 96 Nasal Cannula 2.0 28 12/18/17 16:00 97.7 71 17 110/58 99 Nasal Cannula 2.0 97.7 12/18/17 15:24 84 18 99 Nasal Cannula 2.0 28 12/18/17 15:17 80 20 97 Nasal Cannula 2.0 28 12/18/17 13:10 86 18 99 Nasal Cannula 2.0 28 12/18/17 13:04 76 20 96 Nasal Cannula 2.0 28 12/18/17 13:04 76 20 96 Nasal Cannula 2.0 28 12/18/17 13:02 72 20 96 Nasal Cannula 2.0 28 12/18/17 13:01 96 Nasal Cannula 2.0 28 12/18/17 13:01 92 20 96 Nasal Cannula 2.0 28 12/18/17 13:01 Nasal Cannula 2.0 28 12/18/17 13:00 90 18 97 Nasal Cannula 2.0 28 Height (Feet): 4 Height (Inches): 9.00 Weight (Pounds): 230 General Appearance: no acute distress HEENT: mucous membranes moist Respiratory/Chest: decreased breath sounds Cardiovascular: normal rate Abdomen: soft, non tender Extremities: other - edema Skin: rash, ulcers Neurologic/Psychiatric: alert, oriented x 3, responsive Laboratory Tests Test 12/19/17 05:50 White Blood Count 5.3 K/UL (4.8-10.8) Red Blood Count 3.60 M/UL (4.20-5.40) L Hemoglobin 10.2 G/DL (12.0-16.0) L Hematocrit 32.3 % (37.0-47.0) L Mean Corpuscular Volume 90 FL (80-99) Mean Corpuscular Hemoglobin 28.5 PG (27.0-31.0) Mean Corpuscular Hemoglobin Concent 31.7 G/DL (32.0-36.0) L Red Cell Distribution Width 14.7 % (11.6-14.8) Platelet Count 175 K/UL (150-450) Mean Platelet Volume 8.4 FL (6.5-10.1) Neutrophils (%) (Auto) 57.1 % (45.0-75.0) Lymphocytes (%) (Auto) 30.4 % (20.0-45.0) Monocytes (%) (Auto) 8.5 % (1.0-10.0) Eosinophils (%) (Auto) 2.8 % (0.0-3.0) Basophils (%) (Auto) 1.2 % (0.0-2.0) Sodium Level 142 MMOL/L (136-145) Potassium Level 3.8 MMOL/L (3.5-5.1) Chloride Level 105 MMOL/L (98-107) Carbon Dioxide Level 30 MMOL/L (21-32) Anion Gap 7 mmol/L (5-15) Blood Urea Nitrogen 46 mg/dL (7-18) H Creatinine 1.2 MG/DL (0.55-1.30) Estimat Glomerular Filtration Rate mL/min (>60) Glucose Level 91 MG/DL (74-106) Calcium Level 8.5 MG/DL (8.5-10.1) Total Bilirubin 0.3 MG/DL (0.2-1.0) Aspartate Amino Transf (AST/SGOT) 14 U/L (15-37) L Alanine Aminotransferase (ALT/SGPT) 18 U/L (12-78) Alkaline Phosphatase 91 U/L (46-116) Pro-B-Type Natriuretic Peptide 1228 pg/mL (0-125) H Total Protein 6.2 G/DL (6.4-8.2) L Albumin 2.2 G/DL (3.4-5.0) L Globulin 4.0 g/dL Albumin/Globulin Ratio 0.6 (1.0-2.7) L Current Medications Medications (Trade) Dose Ordered Sig/Sachin Route PRN Reason Start Time Stop Time Status Last Admin Dose Admin Acetaminophen (Tylenol) 650 mg Q4H PRN ORAL Mild Pain/Temp > 100.5 12/05/17 21:10 01/04/18 21:09 Al Hydroxide/Mg Hydroxide (Mylanta) 30 ml Q4H PRN ORAL Nausea & Vomiting 12/05/17 21:11 01/04/18 21:10 Albuterol/ Ipratropium (Albuterol/ Ipratropium) 3 ml Q4HRT HHN 12/17/17 05:00 12/22/17 04:59 12/19/17 10:26 Aspirin (Ecotrin) 81 mg DAILY ORAL 12/15/17 09:00 01/05/18 08:59 12/19/17 08:52 Atorvastatin Calcium (Lipitor) 10 mg BEDTIME ORAL 12/14/17 21:00 01/05/18 20:59 12/18/17 20:50 Colistimethate Sodium (Colistin *inhalation use only*) 75 mg Q12HR@10,22 INH 12/15/17 22:00 12/22/17 21:59 12/19/17 10:24 Diphenhydramine HCl (Benadryl) 50 mg Q4HR PRN ORAL Itching 12/11/17 16:30 01/10/18 16:29 12/13/17 00:16 Estrogens Conjugated (Premarin) 0.625 mg DAILY ORAL 12/15/17 09:00 01/06/18 08:59 12/19/17 08:53 Furosemide (Lasix) 40 mg DAILY ORAL 12/15/17 09:00 01/13/18 08:59 12/19/17 08:54 Magnesium Hydroxide (Mom) 30 ml DAILYPRN PRN ORAL Constipation 12/05/17 21:11 01/04/18 21:10 Metoprolol Tartrate (Lopressor) 25 mg Q12HR ORAL 12/14/17 21:00 01/13/18 20:59 12/19/17 08:53 Minocycline HCl (Minocin) 100 mg Q12HR ORAL 12/16/17 21:00 12/23/17 20:59 12/19/17 08:54 Montelukast Sodium (Singulair) 10 mg QPM ORAL 12/14/17 16:30 01/15/18 16:29 12/18/17 16:49 Pantoprazole (Protonix) 40 mg ACBREAKFAST ORAL 12/15/17 06:30 01/14/18 06:29 12/19/17 06:57 Prednisolone Acetate (Pred Forte) 1 drop QID RIGHT EYE 12/06/17 18:00 01/05/18 17:59 12/19/17 08:55 Salmeterol Xinafoate/ Fluticasone (Advair 250/50 Diskus) 1 puffs BIDRT INH 12/06/17 10:00 01/05/18 09:59 12/18/17 12:57 Triamcinolone Acetonide (Kenalog) 1 applic BID TOPIC 12/06/17 18:00 01/05/18 17:59 12/19/17 08:55 LUDIVINA BRITO December 19, 2017 10:59
[2017-12-19 11:49] VITALS: BP 128/66
[2017-12-19] MEDS: Montelukast 10mg tablet ORAL SCH (15:59)
[2017-12-19 16:00] VITALS: BP 128/80
--- NOTE | 2017-12-19 17:58 | Pulmonology Progress Note ---
Assessment/Plan Assessment/Plan 1. Probable pulmonary edema. 2. Pulmonary congestion. 3. Possible underlying pneumonia, RLL infiltrate 4. Pacemaker. 5. Hypertension. 6. Asthma/COPD. 7. Mild pleural effusion. 8. Failure to thrive. 9. Cellulitis 10.CT chest with RML atelectasis, nodule, hyperinflation PLAN wound care ongoing CT chest reviewed and compared; will need bronchoscopy of RML will discuss but can be done as outpatient MDR keep negative respiratory care oxygen therapy stable for lower level of care unable to care for self at home maintain isolation for now impression, plan, and exam edited and reviewed in detail care discussed with RN Subjective ROS Limited/Unobtainable: Yes Allergies: Coded Allergies: IODINE (Verified Allergy, Unknown, 12/05/17) POVIDONE-IODINE (Verified Allergy, Unknown, 12/05/17) SOAP (Verified Allergy, Unknown, 12/05/17) Subjective care noted CT chest reviewed and compared to prior at [facility] on isolation still with congestion and concerned Objective Last 24 Hour Vital Signs Date Time Temp Pulse Resp B/P (MAP) Pulse Ox O2 Delivery O2 Flow Rate FiO2 12/19/17 16:41 79 18 99 Nasal Cannula 2.0 28 12/19/17 16:30 79 18 95 Nasal Cannula 2.0 28 12/19/17 16:00 97.6 85 18 128/80 96 Nasal Cannula 2.0 97.6 12/19/17 11:49 98.0 66 18 128/66 99 Nasal Cannula 2.0 98.0 12/19/17 10:28 73 18 99 Nasal Cannula 2.0 28 12/19/17 10:20 75 18 96 Nasal Cannula 2.0 28 12/19/17 10:08 75 18 97 Nasal Cannula 2.0 28 12/19/17 10:00 Nasal Cannula 12/19/17 10:00 Nasal Cannula 12/19/17 10:00 76 18 96 Nasal Cannula 2.0 28 12/19/17 08:53 88 115/71 12/19/17 08:00 97.4 88 17 115/71 99 Nasal Cannula 2.0 97.4 12/19/17 07:30 98 Nasal Cannula 2.0 28 12/19/17 07:30 Nasal Cannula 2.0 28 12/19/17 07:30 Nasal Cannula 12/19/17 07:30 Nasal Cannula 12/19/17 04:04 75 18 99 Nasal Cannula 2.0 28 12/19/17 04:00 98.0 87 20 102/55 96 98.0 12/19/17 03:53 71 18 96 Nasal Cannula 2.0 28 12/19/17 01:11 81 18 98 Nasal Cannula 2.0 28 12/19/17 01:04 85 18 96 Nasal Cannula 2.0 28 12/19/17 00:00 98.1 85 20 136/66 94 98.1 12/18/17 21:12 81 18 97 Nasal Cannula 2.0 28 12/18/17 21:05 86 20 97 Nasal Cannula 2.0 28 12/18/17 21:05 88 18 96 Nasal Cannula 2.0 28 12/18/17 21:00 83 18 96 Nasal Cannula 2.0 28 12/18/17 20:55 89 132/69 12/18/17 19:58 97.7 89 18 132/61 92 97.7 12/18/17 19:29 97 Nasal Cannula 2.0 28 12/18/17 19:29 Nasal Cannula 2.0 28 12/18/17 19:05 Nasal Cannula 2.0 28 12/18/17 19:05 88 18 96 Nasal Cannula 2.0 28 Intake and Output 12/18/17 12/19/17 19:00 07:00 Intake Total 1000 ml 1180 ml Output Total 300 ml Balance 1000 ml 880 ml Intake Oral 1180 ml Other 1000 ml Output Urine Total 300 ml # Voids 3 5 # Bowel Movements 2 2 Objective WDWN NAD reduced breath sounds bilaterally with some rhonchi [id number] without MRG NABS nontender no HSM no CC edema and erythema nonfocal weak reviewed and edited Laboratory Tests 12/19/17 05:50: White Blood Count 5.3, Red Blood Count 3.60L, Hemoglobin 10.2L, Hematocrit 32.3L , Mean Corpuscular Volume 90, Mean Corpuscular Hemoglobin 28.5, Mean Corpuscular Hemoglobin Concent 31.7L, Red Cell Distribution Width 14.7, Platelet Count 175, Mean Platelet Volume 8.4, Neutrophils (%) (Auto) 57.1, Lymphocytes (%) (Auto) 30.4, Monocytes (%) (Auto) 8.5, Eosinophils (%) (Auto) 2.8, Basophils (%) (Auto) 1.2, Sodium Level 142, Potassium Level 3.8, Chloride Level 105, Carbon Dioxide Level 30, Anion Gap 7, Blood Urea Nitrogen 46H, Creatinine 1.2, Estimat Glomerular Filtration Rate , Glucose Level 91, Calcium Level 8.5, Total Bilirubin 0.3, Aspartate Amino Transf (AST/SGOT) 14L, Alanine Aminotransferase (ALT/SGPT) 18, Alkaline Phosphatase 91, Pro-B-Type Natriuretic Peptide 1228H, Total Protein 6.2L, Albumin 2.2L, Globulin 4.0, Albumin/Globulin Ratio 0.6L Current Medications Medications (Trade) Dose Ordered Sig/Sachin Route PRN Reason Start Time Stop Time Status Last Admin Dose Admin Acetaminophen (Tylenol) 650 mg Q4H PRN ORAL Mild Pain/Temp > 100.5 12/05/17 21:10 01/04/18 21:09 Al Hydroxide/Mg Hydroxide (Mylanta) 30 ml Q4H PRN ORAL Nausea & Vomiting 12/05/17 21:11 01/04/18 21:10 Albuterol/ Ipratropium (Albuterol/ Ipratropium) 3 ml Q4HRT HHN 12/17/17 05:00 12/22/17 04:59 12/19/17 16:37 Aspirin (Ecotrin) 81 mg DAILY ORAL 12/15/17 09:00 01/05/18 08:59 12/19/17 08:52 Atorvastatin Calcium (Lipitor) 10 mg BEDTIME ORAL 12/14/17 21:00 01/05/18 20:59 12/18/17 20:50 Colistimethate Sodium (Colistin *inhalation use only*) 75 mg Q12HR@10,22 INH 12/15/17 22:00 12/22/17 21:59 12/19/17 10:24 Diphenhydramine HCl (Benadryl) 50 mg Q4HR PRN ORAL Itching 12/11/17 16:30 01/10/18 16:29 12/13/17 00:16 Estrogens Conjugated (Premarin) 0.625 mg DAILY ORAL 12/15/17 09:00 01/06/18 08:59 12/19/17 08:53 Furosemide (Lasix) 40 mg DAILY ORAL 12/15/17 09:00 01/13/18 08:59 12/19/17 08:54 Magnesium Hydroxide (Mom) 30 ml DAILYPRN PRN ORAL Constipation 12/05/17 21:11 01/04/18 21:10 Metoprolol Tartrate (Lopressor) 25 mg Q12HR ORAL 12/14/17 21:00 01/13/18 20:59 12/19/17 08:53 Minocycline HCl (Minocin) 100 mg Q12HR ORAL 12/16/17 21:00 12/23/17 20:59 12/19/17 08:54 Montelukast Sodium (Singulair) 10 mg QPM ORAL 12/14/17 16:30 01/15/18 16:29 12/19/17 15:59 Pantoprazole (Protonix) 40 mg ACBREAKFAST ORAL 12/15/17 06:30 01/14/18 06:29 12/19/17 06:57 Prednisolone Acetate (Pred Forte) 1 drop QID RIGHT EYE 12/06/17 18:00 01/05/18 17:59 12/19/17 08:55 Salmeterol Xinafoate/ Fluticasone (Advair 250/50 Diskus) 1 puffs BIDRT INH 12/06/17 10:00 01/05/18 09:59 12/18/17 12:57 Triamcinolone Acetonide (Kenalog) 1 applic BID TOPIC 12/06/17 18:00 01/05/18 17:59 12/19/17 17:20 Shubham Rivera MD December 19, 2017 17:58
[2017-12-19 20:00] VITALS: BP 115/74
--- NOTE | 2017-12-19 23:45 | Progress Note ---
DATE: 12/19/2017 CARDIOLOGY PROGRESS NOTE SUBJECTIVE: The patient remains in the hospital impaired with regard to mobility. She is still short of breath. She remains on isolation. CT scan reveals worsening right middle lobe findings and bronchoscopy is being recommended. PHYSICAL EXAMINATION: VITAL SIGNS: Blood pressure 128/80, heart rate 85, and respirations 18. LUNGS: Scattered rhonchi, rales, and few wheezes. HEART: Regular rhythm and rate. Normal S1, S2 with a 1/6 systolic apical murmur. ABDOMEN: Soft. EXTREMITIES: There is dependent edema. LABORATORY DATA: White count 5.3 and hemoglobin 10.2. BUN is 46 and creatinine 1.2. Albumin 2.2. Potassium 3.8. IMPRESSION: 1. Right middle lobe infiltrate and possible mass. 2. Paroxysmal bronchospasm. 3. Acute on chronic diastolic congestive heart failure. 4. Situational depression. 5. Severe protein-calorie malnutrition. 6. Prerenal azotemia due to diuresis. PLAN: 1. Await bronchoscopy timing. 2. Continue cautious diuresis. 3. Titrate anti-failure regimen based on cardio renal parameters and volume status. 4. Continue pulmonary regimen including bronchodilators and antimicrobials. 5. DVT prophylaxis. Levi Wu M.D. DR: MADHU JOB#: [id number] CC:
[2017-12-20] MEDS: Albuterol/Ipratropium 3ml neb HHN SCH ×6 (02:25→22:32)
[2017-12-20 04:00] VITALS: BP 117/42
[2017-12-20 08:00] VITALS: BP 135/63
[2017-12-20] MEDS: Minocycline HCl 50mg cap ORAL SCH ×2 (08:22→20:56)
[2017-12-20] MEDS: Premarin tab 0.625MG ORAL SCH (08:22)
[2017-12-20] MEDS: Triamcinolone 0.1% 15gm Cr TOPIC SCH ×2 (08:22→17:23)
[2017-12-20] MEDS: Metoprolol 25mg tab ORAL SCH ×2 (08:22→20:56)
[2017-12-20] MEDS: Aspirin EC 81mg tab ORAL SCH (08:22)
[2017-12-20] MEDS: Furosemide 40mg tab ORAL SCH (08:22)
[2017-12-20] MEDS: Pred Forte 1% Opth Susp 1ml RIGHT EYE SCH ×4 (08:23→20:56)
--- NOTE | 2017-12-20 08:53 | Pulmonology Progress Note ---
Assessment/Plan Assessment/Plan 1. Probable pulmonary edema. 2. Pulmonary congestion. 3. Possible underlying pneumonia, RLL infiltrate 4. Pacemaker. 5. Hypertension. 6. Asthma/COPD. 7. Mild pleural effusion. 8. Failure to thrive. 9. Cellulitis 10.CT chest with RML atelectasis, nodule, hyperinflation PLAN wound care ongoing as outlined CT chest reviewed and compared; will need bronchoscopy of RML to assess for airway obstruction discussed but can defer to outpatient MDR keep negative with noted peripheral edema respiratory care as is oxygen therapy stable for lower level of care unable to care for self at home maintain isolation for now impression, plan, and exam edited and reviewed in detail care discussed with RN Subjective ROS Limited/Unobtainable: Yes Allergies: Coded Allergies: IODINE (Verified Allergy, Unknown, 12/05/17) POVIDONE-IODINE (Verified Allergy, Unknown, 12/05/17) SOAP (Verified Allergy, Unknown, 12/05/17) Subjective care noted CT chest reviewed and d/w patient on isolation still with congestion and concerned Objective Last 24 Hour Vital Signs Date Time Temp Pulse Resp B/P (MAP) Pulse Ox O2 Delivery O2 Flow Rate FiO2 12/20/17 08:22 71 135/63 12/20/17 07:37 82 18 99 Nasal Cannula 2.0 12/20/17 07:29 85 18 97 Nasal Cannula 2.0 12/20/17 04:00 97.3 67 20 117/42 98 Nasal Cannula 97.3 12/20/17 02:33 78 18 99 Nasal Cannula 2.0 28 12/20/17 02:25 83 18 97 Nasal Cannula 2.0 12/20/17 00:00 Nasal Cannula 12/19/17 23:27 82 18 98 Nasal Cannula 2.0 28 12/19/17 23:13 77 18 96 Nasal Cannula 2.0 28 12/19/17 21:33 73 115/74 12/19/17 21:11 79 18 98 Nasal Cannula 2.0 28 12/19/17 21:01 77 18 96 Nasal Cannula 2.0 28 12/19/17 20:32 82 20 97 Nasal Cannula 2.0 28 12/19/17 20:31 79 18 95 Nasal Cannula 2.0 28 12/19/17 20:02 97 Nasal Cannula 2.0 28 12/19/17 20:02 Nasal Cannula 2.0 28 12/19/17 20:00 98.2 73 20 115/74 100 Nasal Cannula 98.2 12/19/17 19:59 Nasal Cannula 2.0 28 12/19/17 19:58 Nasal Cannula 2.0 28 12/19/17 16:41 79 18 99 Nasal Cannula 2.0 28 12/19/17 16:30 79 18 95 Nasal Cannula 2.0 28 12/19/17 16:00 97.6 85 18 128/80 96 Nasal Cannula 2.0 97.6 12/19/17 11:49 98.0 66 18 128/66 99 Nasal Cannula 2.0 98.0 12/19/17 10:28 73 18 99 Nasal Cannula 2.0 28 12/19/17 10:20 75 18 96 Nasal Cannula 2.0 28 12/19/17 10:08 75 18 97 Nasal Cannula 2.0 28 12/19/17 10:00 Nasal Cannula 12/19/17 10:00 Nasal Cannula 12/19/17 10:00 76 18 96 Nasal Cannula 2.0 28 12/19/17 08:53 88 115/71 Intake and Output 12/19/17 12/20/17 19:00 07:00 Intake Total 600 ml 250 ml Balance 600 ml 250 ml Intake Oral 250 ml Other 600 ml # Voids 3 1 # Bowel Movements 2 1 Objective WDWN NAD reduced breath sounds bilaterally with some rhonchi [id number] without MRG NABS nontender no HSM no CC edema and erythema nonfocal weak reviewed and edited Current Medications Medications (Trade) Dose Ordered Sig/Sachin Route PRN Reason Start Time Stop Time Status Last Admin Dose Admin Acetaminophen (Tylenol) 650 mg Q4H PRN ORAL Mild Pain/Temp > 100.5 12/05/17 21:10 01/04/18 21:09 Al Hydroxide/Mg Hydroxide (Mylanta) 30 ml Q4H PRN ORAL Nausea & Vomiting 12/05/17 21:11 01/04/18 21:10 Albuterol/ Ipratropium (Albuterol/ Ipratropium) 3 ml Q4HRT HHN 12/17/17 05:00 12/22/17 04:59 12/20/17 07:29 Aspirin (Ecotrin) 81 mg DAILY ORAL 12/15/17 09:00 01/05/18 08:59 12/20/17 08:22 Atorvastatin Calcium (Lipitor) 10 mg BEDTIME ORAL 12/14/17 21:00 01/05/18 20:59 12/19/17 21:32 Colistimethate Sodium (Colistin *inhalation use only*) 75 mg Q12HR@10,22 INH 12/15/17 22:00 12/22/17 21:59 12/19/17 19:57 Diphenhydramine HCl (Benadryl) 50 mg Q4HR PRN ORAL Itching 12/11/17 16:30 01/10/18 16:29 12/13/17 00:16 Estrogens Conjugated (Premarin) 0.625 mg DAILY ORAL 12/15/17 09:00 01/06/18 08:59 12/20/17 08:22 Furosemide (Lasix) 40 mg DAILY ORAL 12/15/17 09:00 01/13/18 08:59 12/20/17 08:22 Magnesium Hydroxide (Mom) 30 ml DAILYPRN PRN ORAL Constipation 12/05/17 21:11 01/04/18 21:10 Metoprolol Tartrate (Lopressor) 25 mg Q12HR ORAL 12/14/17 21:00 01/13/18 20:59 12/20/17 08:22 Minocycline HCl (Minocin) 100 mg Q12HR ORAL 12/16/17 21:00 12/23/17 20:59 12/20/17 08:22 Montelukast Sodium (Singulair) 10 mg QPM ORAL 12/14/17 16:30 01/15/18 16:29 12/19/17 15:59 Pantoprazole (Protonix) 40 mg ACBREAKFAST ORAL 12/15/17 06:30 01/14/18 06:29 12/20/17 06:27 Prednisolone Acetate (Pred Forte) 1 drop QID RIGHT EYE 12/06/17 18:00 01/05/18 17:59 12/20/17 08:23 Salmeterol Xinafoate/ Fluticasone (Advair 250/50 Diskus) 1 puffs BIDRT INH 12/06/17 10:00 01/05/18 09:59 12/19/17 19:57 Triamcinolone Acetonide (Kenalog) 1 applic BID TOPIC 12/06/17 18:00 01/05/18 17:59 12/20/17 08:22 Shubham Rivera MD December 20, 2017 08:53
[2017-12-20] MEDS: Advair 250/50 Inhaler - 14 dose INH SCH ×2 (09:19→19:37)
[2017-12-20] MEDS: Colistin for inhalation INH SCH ×2 (09:24→22:32)
--- NOTE | 2017-12-20 09:44 | General Progress Note ---
Assessment/Plan Problem List: (1) Renal insufficiency ICD Codes: N28.9 - Disorder of kidney and ureter, unspecified SNOMED: 393480028, 878074608 (2) CHF (congestive heart failure) ICD Codes: I50.9 - Heart failure, unspecified SNOMED: 94922182 Qualifiers: Qualified Codes: I50.9 - Heart failure, unspecified (3) Bilateral lower leg cellulitis ICD Codes: L03.116 - Cellulitis of left lower limb; L03.115 - Cellulitis of right lower limb SNOMED: 829196260 (4) Skin cancer ICD Codes: C44.90 - Unspecified malignant neoplasm of skin, unspecified SNOMED: 402530757 (5) Sepsis ICD Codes: A41.9 - Sepsis, unspecified organism SNOMED: 34801552 (6) Acute respiratory failure ICD Codes: J96.00 - Acute respiratory failure, unspecified whether with hypoxia or hypercapnia SNOMED: 50943836 (7) CAP (community acquired pneumonia) ICD Codes: J18.9 - Pneumonia, unspecified organism SNOMED: 005813577 Status: stable, progressing Assessment/Plan diuresis monitor renal fxn/labs/cxr resp rx chest physiotherapy abx per id pt/ot skin care dc planning to snf Subjective ROS Limited/Unobtainable: No Constitutional: Reports: malaise, weakness HEENT: Reports: no symptoms Cardiovascular: Reports: no symptoms Respiratory: Reports: cough, sputum Gastrointestinal/Abdominal: Reports: no symptoms Genitourinary: Reports: no symptoms Neurologic/Psychiatric: Reports: no symptoms Endocrine: Reports: no symptoms Hematologic/Lymphatic: Reports: no symptoms Allergies: Coded Allergies: IODINE (Verified Allergy, Unknown, 12/05/17) POVIDONE-IODINE (Verified Allergy, Unknown, 12/05/17) SOAP (Verified Allergy, Unknown, 12/05/17) All Systems: reviewed and negative except above Subjective no events. c/o congestion and productive cough- less with chest pt. pt appealed dc Objective Last 24 Hour Vital Signs Date Time Temp Pulse Resp B/P (MAP) Pulse Ox O2 Delivery O2 Flow Rate FiO2 12/20/17 09:23 97 Nasal Cannula 2.0 28 12/20/17 09:23 Nasal Cannula 2.0 28 12/20/17 09:22 84 20 97 Nasal Cannula 2.0 28 12/20/17 09:20 85 18 97 Nasal Cannula 2.0 28 12/20/17 08:22 71 135/63 12/20/17 07:37 82 18 99 Nasal Cannula 2.0 28 12/20/17 07:29 85 18 97 Nasal Cannula 2.0 28 12/20/17 04:00 97.3 67 20 117/42 98 Nasal Cannula 97.3 12/20/17 02:33 78 18 99 Nasal Cannula 2.0 28 12/20/17 02:25 83 18 97 Nasal Cannula 2.0 28 12/20/17 00:00 Nasal Cannula 12/19/17 23:27 82 18 98 Nasal Cannula 2.0 28 12/19/17 23:13 77 18 96 Nasal Cannula 2.0 28 12/19/17 21:33 73 115/74 12/19/17 21:11 79 18 98 Nasal Cannula 2.0 28 12/19/17 21:01 77 18 96 Nasal Cannula 2.0 28 12/19/17 20:32 82 20 97 Nasal Cannula 2.0 28 12/19/17 20:31 79 18 95 Nasal Cannula 2.0 28 12/19/17 20:02 97 Nasal Cannula 2.0 28 12/19/17 20:02 Nasal Cannula 2.0 28 12/19/17 20:00 98.2 73 20 115/74 100 Nasal Cannula 98.2 12/19/17 19:59 Nasal Cannula 2.0 28 12/19/17 19:58 Nasal Cannula 2.0 28 12/19/17 16:41 79 18 99 Nasal Cannula 2.0 28 12/19/17 16:30 79 18 95 Nasal Cannula 2.0 28 12/19/17 16:00 97.6 85 18 128/80 96 Nasal Cannula 2.0 97.6 12/19/17 11:49 98.0 66 18 128/66 99 Nasal Cannula 2.0 98.0 12/19/17 10:28 73 18 99 Nasal Cannula 2.0 28 12/19/17 10:20 75 18 96 Nasal Cannula 2.0 28 12/19/17 10:08 75 18 97 Nasal Cannula 2.0 28 12/19/17 10:00 Nasal Cannula 12/19/17 10:00 Nasal Cannula 12/19/17 10:00 76 18 96 Nasal Cannula 2.0 28 Intake and Output 12/19/17 12/20/17 19:00 07:00 Intake Total 600 ml 250 ml Balance 600 ml 250 ml Intake Oral 250 ml Other 600 ml # Voids 3 1 # Bowel Movements 2 1 Height (Feet): 4 Height (Inches): 9.00 Weight (Pounds): 223 Objective General Appearance: WD/WN, alert Neck: supple Cardiovascular: normal rate, regular rhythm Respiratory/Chest: lungs clear Abdomen: normal bowel sounds, non tender, soft, no organomegaly Edema: mild edema Neurologic: data management consultant II-XII grossly normal, no motor/sensory deficits, abnormal gait , alert, oriented x 3, responsive LUBA HERNANDEZ December 20, 2017 09:44
--- NOTE | 2017-12-20 10:55 | Infectious Diseases Prog Note ---
Assessment/Plan Assessment/Plan antibiotics : minocycline, inhaled colistin A 1. left leg cellulitis with acenitobacter improving 2. CHF 3. COPD 4. squamous cell carcinoma 5. acenitobacter pneumonia P 1. continue minocycline 2 more days 2. continue inhaled colistin 1 more day 3. will follow up cultures Subjective Respiratory: Reports: shortness of breath, dry cough Gastrointestinal/Abdominal: Denies: nausea, vomiting, diarrhea Musculoskeletal: Reports: pain Allergies: Coded Allergies: IODINE (Verified Allergy, Unknown, 12/05/17) POVIDONE-IODINE (Verified Allergy, Unknown, 12/05/17) SOAP (Verified Allergy, Unknown, 12/05/17) Objective Vital Signs Last 24 Hour Vital Signs Date Time Temp Pulse Resp B/P (MAP) Pulse Ox O2 Delivery O2 Flow Rate FiO2 12/20/17 10:48 76 18 97 Nasal Cannula 2.0 28 12/20/17 10:34 80 18 97 Nasal Cannula 2.0 28 12/20/17 09:23 97 Nasal Cannula 2.0 28 12/20/17 09:23 Nasal Cannula 2.0 28 12/20/17 09:22 84 20 97 Nasal Cannula 2.0 28 12/20/17 09:20 85 18 97 Nasal Cannula 2.0 28 12/20/17 08:22 71 135/63 12/20/17 08:00 97.6 71 18 135/63 98 Nasal Cannula 2.0 97.6 12/20/17 07:37 82 18 99 Nasal Cannula 2.0 28 12/20/17 07:29 85 18 97 Nasal Cannula 2.0 28 12/20/17 04:00 97.3 67 20 117/42 98 Nasal Cannula 97.3 12/20/17 02:33 78 18 99 Nasal Cannula 2.0 28 12/20/17 02:25 83 18 97 Nasal Cannula 2.0 28 12/20/17 00:00 Nasal Cannula 12/19/17 23:27 82 18 98 Nasal Cannula 2.0 28 12/19/17 23:13 77 18 96 Nasal Cannula 2.0 28 12/19/17 21:33 73 115/74 12/19/17 21:11 79 18 98 Nasal Cannula 2.0 28 12/19/17 21:01 77 18 96 Nasal Cannula 2.0 28 12/19/17 20:32 82 20 97 Nasal Cannula 2.0 28 12/19/17 20:31 79 18 95 Nasal Cannula 2.0 28 12/19/17 20:02 97 Nasal Cannula 2.0 28 12/19/17 20:02 Nasal Cannula 2.0 28 12/19/17 20:00 98.2 73 20 115/74 100 Nasal Cannula 98.2 12/19/17 19:59 Nasal Cannula 2.0 28 12/19/17 19:58 Nasal Cannula 2.0 28 12/19/17 16:41 79 18 99 Nasal Cannula 2.0 28 12/19/17 16:30 79 18 95 Nasal Cannula 2.0 28 12/19/17 16:00 97.6 85 18 128/80 96 Nasal Cannula 2.0 97.6 12/19/17 11:49 98.0 66 18 128/66 99 Nasal Cannula 2.0 98.0 Height (Feet): 4 Height (Inches): 9.00 Weight (Pounds): 223 Respiratory/Chest: lungs clear Cardiovascular: normal rate, regular rhythm, no gallop/murmur Abdomen: soft, non tender Extremities: other - + edema, left leg erythema decreasing Current Medications Medications (Trade) Dose Ordered Sig/Sachin Route PRN Reason Start Time Stop Time Status Last Admin Dose Admin Acetaminophen (Tylenol) 650 mg Q4H PRN ORAL Mild Pain/Temp > 100.5 12/05/17 21:10 01/04/18 21:09 Al Hydroxide/Mg Hydroxide (Mylanta) 30 ml Q4H PRN ORAL Nausea & Vomiting 12/05/17 21:11 01/04/18 21:10 Albuterol/ Ipratropium (Albuterol/ Ipratropium) 3 ml Q4HRT HHN 12/17/17 05:00 12/22/17 04:59 12/20/17 07:29 Aspirin (Ecotrin) 81 mg DAILY ORAL 12/15/17 09:00 01/05/18 08:59 12/20/17 08:22 Atorvastatin Calcium (Lipitor) 10 mg BEDTIME ORAL 12/14/17 21:00 01/05/18 20:59 12/19/17 21:32 Colistimethate Sodium (Colistin *inhalation use only*) 75 mg Q12HR@10,22 INH 12/15/17 22:00 12/22/17 21:59 12/20/17 09:24 Diphenhydramine HCl (Benadryl) 50 mg Q4HR PRN ORAL Itching 12/11/17 16:30 01/10/18 16:29 12/13/17 00:16 Estrogens Conjugated (Premarin) 0.625 mg DAILY ORAL 12/15/17 09:00 01/06/18 08:59 12/20/17 08:22 Furosemide (Lasix) 40 mg DAILY ORAL 12/15/17 09:00 01/13/18 08:59 12/20/17 08:22 Magnesium Hydroxide (Mom) 30 ml DAILYPRN PRN ORAL Constipation 12/05/17 21:11 01/04/18 21:10 Metoprolol Tartrate (Lopressor) 25 mg Q12HR ORAL 12/14/17 21:00 01/13/18 20:59 12/20/17 08:22 Minocycline HCl (Minocin) 100 mg Q12HR ORAL 12/16/17 21:00 12/23/17 20:59 12/20/17 08:22 Montelukast Sodium (Singulair) 10 mg QPM ORAL 12/14/17 16:30 01/15/18 16:29 12/19/17 15:59 Pantoprazole (Protonix) 40 mg ACBREAKFAST ORAL 12/15/17 06:30 01/14/18 06:29 12/20/17 06:27 Prednisolone Acetate (Pred Forte) 1 drop QID RIGHT EYE 12/06/17 18:00 01/05/18 17:59 12/20/17 08:23 Salmeterol Xinafoate/ Fluticasone (Advair 250/50 Diskus) 1 puffs BIDRT INH 12/06/17 10:00 01/05/18 09:59 12/20/17 09:19 Triamcinolone Acetonide (Kenalog) 1 applic BID TOPIC 12/06/17 18:00 01/05/18 17:59 12/20/17 08:22 DEE DEE RANDHAWA December 20, 2017 10:55
[2017-12-20 12:00] VITALS: BP 130/72
[2017-12-20 16:00] VITALS: BP 109/63
[2017-12-20] MEDS: Montelukast 10mg tablet ORAL SCH (17:23)
[2017-12-20 20:00] VITALS: BP 136/78
[2017-12-21 00:03] VITALS: BP 134/66
[2017-12-21] MEDS: Albuterol/Ipratropium 3ml neb HHN SCH ×6 (03:16→22:26)
[2017-12-21 04:00] VITALS: BP 122/85
[2017-12-21 08:00] VITALS: BP 141/78
--- NOTE | 2017-12-21 08:14 | General Progress Note ---
Assessment/Plan Problem List: (1) Renal insufficiency ICD Codes: N28.9 - Disorder of kidney and ureter, unspecified SNOMED: 559230817, 290355490 (2) CHF (congestive heart failure) ICD Codes: I50.9 - Heart failure, unspecified SNOMED: 77797238 Qualifiers: Qualified Codes: I50.9 - Heart failure, unspecified (3) Bilateral lower leg cellulitis ICD Codes: L03.116 - Cellulitis of left lower limb; L03.115 - Cellulitis of right lower limb SNOMED: 141391496 (4) Skin cancer ICD Codes: C44.90 - Unspecified malignant neoplasm of skin, unspecified SNOMED: 673455318 (5) Sepsis ICD Codes: A41.9 - Sepsis, unspecified organism SNOMED: 64150962 (6) Acute respiratory failure ICD Codes: J96.00 - Acute respiratory failure, unspecified whether with hypoxia or hypercapnia SNOMED: 77369268 (7) CAP (community acquired pneumonia) ICD Codes: J18.9 - Pneumonia, unspecified organism SNOMED: 216067112 Status: stable, progressing Assessment/Plan diuresis monitor renal fxn/labs/cxr resp rx chest physiotherapy abx per id pt/ot skin care dc planning to snf Subjective ROS Limited/Unobtainable: No Constitutional: Reports: malaise, weakness HEENT: Reports: no symptoms Cardiovascular: Reports: no symptoms Respiratory: Reports: cough, sputum Gastrointestinal/Abdominal: Reports: no symptoms Genitourinary: Reports: no symptoms Neurologic/Psychiatric: Reports: no symptoms Endocrine: Reports: no symptoms Hematologic/Lymphatic: Reports: no symptoms Allergies: Coded Allergies: IODINE (Verified Allergy, Unknown, 12/05/17) POVIDONE-IODINE (Verified Allergy, Unknown, 12/05/17) SOAP (Verified Allergy, Unknown, 12/05/17) All Systems: reviewed and negative except above Subjective no events. c/o congestion and productive cough- less with chest pt. pt appealed declined. pt filed 2nd appeal Objective Last 24 Hour Vital Signs Date Time Temp Pulse Resp B/P (MAP) Pulse Ox O2 Delivery O2 Flow Rate FiO2 12/21/17 07:31 69 18 99 Nasal Cannula 2.0 28 12/21/17 07:22 Nasal Cannula 2.0 28 12/21/17 07:22 28 12/21/17 07:22 68 18 99 Nasal Cannula 2.0 28 12/21/17 07:22 99 Nasal Cannula 2.0 28 12/21/17 04:00 Nasal Cannula 2.0 12/21/17 04:00 97.6 89 20 122/85 96 Nasal Cannula 2.0 97.6 12/21/17 03:26 80 18 99 Nasal Cannula 2.0 28 12/21/17 03:16 81 18 97 Nasal Cannula 2.0 28 12/21/17 00:03 97.7 80 20 134/66 99 Nasal Cannula 2.0 97.7 12/21/17 00:00 Nasal Cannula 2.0 12/20/17 22:43 77 18 99 Nasal Cannula 2.0 28 12/20/17 22:37 79 18 98 Nasal Cannula 2.0 28 12/20/17 20:56 87 136/78 12/20/17 20:00 Nasal Cannula 2.0 12/20/17 20:00 98.5 87 20 136/78 93 Nasal Cannula 2.0 98.5 12/20/17 19:54 88 18 99 Nasal Cannula 2.0 28 12/20/17 19:54 88 18 Nasal Cannula 2.0 28 12/20/17 19:53 88 20 97 Nasal Cannula 2.0 28 12/20/17 19:39 65 18 98 Nasal Cannula 2.0 28 12/20/17 19:39 65 18 98 Nasal Cannula 2.0 12/20/17 19:38 98 Nasal Cannula 2.0 28 12/20/17 19:38 65 18 98 Nasal Cannula 2.0 28 12/20/17 19:38 65 18 98 Nasal Cannula 2.0 28 12/20/17 19:38 Nasal Cannula 2.0 28 12/20/17 16:00 97.9 78 18 109/63 97 Nasal Cannula 2.0 97.9 12/20/17 15:11 86 18 98 Nasal Cannula 2.0 28 12/20/17 15:04 86 18 97 Nasal Cannula 2.0 28 12/20/17 12:00 98.1 74 18 130/72 99 Nasal Cannula 2.0 98.1 12/20/17 11:18 79 18 99 Nasal Cannula 2.0 28 12/20/17 11:12 87 18 96 Nasal Cannula 2.0 28 12/20/17 10:48 76 18 97 Nasal Cannula 2.0 12/20/17 10:34 80 18 97 Nasal Cannula 2.0 28 12/20/17 09:23 97 Nasal Cannula 2.0 12/20/17 09:23 Nasal Cannula 2.0 28 12/20/17 09:22 84 20 97 Nasal Cannula 2.0 12/20/17 09:20 85 18 97 Nasal Cannula 2.0 12/20/17 08:22 71 135/63 Intake and Output 12/20/17 12/21/17 19:00 07:00 Intake Total 1200 ml 240 ml Output Total 200 ml Balance 1200 ml 40 ml Intake Oral 240 ml Other 1200 ml Output Urine Total 200 ml # Voids 4 # Bowel Movements 3 Height (Feet): 4 Height (Inches): 9.00 Weight (Pounds): 226 Objective General Appearance: WD/WN, alert Neck: supple Cardiovascular: normal rate, regular rhythm Respiratory/Chest: lungs clear Abdomen: normal bowel sounds, non tender, soft, no organomegaly Edema: mild edema 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
[2017-12-21] MEDS: Aspirin EC 81mg tab ORAL SCH (08:18)
[2017-12-21] MEDS: Metoprolol 25mg tab ORAL SCH ×2 (08:19→20:55)
[2017-12-21] MEDS: Minocycline HCl 50mg cap ORAL SCH ×2 (08:20→20:55)
[2017-12-21] MEDS: Premarin tab 0.625MG ORAL SCH (08:21)
[2017-12-21] MEDS: Furosemide 40mg tab ORAL SCH (08:22)
[2017-12-21] MEDS: Triamcinolone 0.1% 15gm Cr TOPIC SCH ×2 (08:24→17:55)
[2017-12-21] MEDS: Pred Forte 1% Opth Susp 1ml RIGHT EYE SCH ×4 (08:30→20:54)
[2017-12-21] MEDS: Advair 250/50 Inhaler - 14 dose INH SCH ×2 (09:48→19:35)
[2017-12-21] MEDS: Colistin for inhalation INH SCH ×2 (09:48→22:23)
--- NOTE | 2017-12-21 10:36 | Pulmonology Progress Note ---
Assessment/Plan Assessment/Plan 1. Probable pulmonary edema. 2. Pulmonary congestion. 3. Possible underlying pneumonia, RLL infiltrate 4. Pacemaker. 5. Hypertension. 6. Asthma/COPD. 7. Mild pleural effusion. 8. Failure to thrive. 9. Cellulitis 10.CT chest with RML atelectasis, nodule, hyperinflation PLAN wound care ongoing as outlined CT chest reviewed and compared; will need bronchoscopy of RML to assess for airway obstruction discussed but can defer to outpatient- aware MDR keep negative with noted peripheral edema respiratory care as is oxygen therapy stable for lower level of care unable to care for self at home maintain isolation for now ok to dispo for now impression, plan, and exam edited and reviewed in detail care discussed with RN Subjective Allergies: Coded Allergies: IODINE (Verified Allergy, Unknown, 12/05/17) POVIDONE-IODINE (Verified Allergy, Unknown, 12/05/17) SOAP (Verified Allergy, Unknown, 12/05/17) Subjective care noted CT chest reviewed and d/w patient on isolation some congestion Objective Last 24 Hour Vital Signs Date Time Temp Pulse Resp B/P (MAP) Pulse Ox O2 Delivery O2 Flow Rate FiO2 12/21/17 09:56 79 18 98 Nasal Cannula 2.0 28 12/21/17 09:49 75 18 98 Nasal Cannula 2.0 28 12/21/17 09:48 72 18 97 Nasal Cannula 2.0 28 12/21/17 09:47 72 18 98 Nasal Cannula 2.0 28 12/21/17 08:19 81 144/78 12/21/17 08:00 97.2 74 18 141/78 98 Nasal Cannula 2.0 97.2 12/21/17 07:31 69 18 99 Nasal Cannula 2.0 28 12/21/17 07:22 Nasal Cannula 2.0 28 12/21/17 07:22 28 12/21/17 07:22 68 18 99 Nasal Cannula 2.0 28 12/21/17 07:22 99 Nasal Cannula 2.0 28 12/21/17 04:00 Nasal Cannula 2.0 12/21/17 04:00 97.6 89 20 122/85 96 Nasal Cannula 2.0 97.6 12/21/17 03:26 80 18 99 Nasal Cannula 2.0 28 12/21/17 03:16 81 18 97 Nasal Cannula 2.0 28 12/21/17 00:03 97.7 80 20 134/66 99 Nasal Cannula 2.0 97.7 12/21/17 00:00 Nasal Cannula 2.0 12/20/17 22:43 77 18 99 Nasal Cannula 2.0 28 12/20/17 22:37 79 18 98 Nasal Cannula 2.0 28 12/20/17 20:56 87 136/78 12/20/17 20:00 Nasal Cannula 2.0 12/20/17 20:00 98.5 87 20 136/78 93 Nasal Cannula 2.0 98.5 12/20/17 19:54 88 18 99 Nasal Cannula 2.0 28 12/20/17 19:54 88 18 Nasal Cannula 2.0 28 12/20/17 19:53 88 20 97 Nasal Cannula 2.0 28 12/20/17 19:39 65 18 98 Nasal Cannula 2.0 28 12/20/17 19:39 65 18 98 Nasal Cannula 2.0 28 12/20/17 19:38 98 Nasal Cannula 2.0 28 12/20/17 19:38 65 18 98 Nasal Cannula 2.0 28 12/20/17 19:38 65 18 98 Nasal Cannula 2.0 28 12/20/17 19:38 Nasal Cannula 2.0 28 12/20/17 16:00 97.9 78 18 109/63 97 Nasal Cannula 2.0 97.9 12/20/17 15:11 86 18 98 Nasal Cannula 2.0 28 12/20/17 15:04 86 18 97 Nasal Cannula 2.0 28 12/20/17 12:00 98.1 74 18 130/72 99 Nasal Cannula 2.0 98.1 12/20/17 11:18 79 18 99 Nasal Cannula 2.0 28 12/20/17 11:12 87 18 96 Nasal Cannula 2.0 28 12/20/17 10:48 76 18 97 Nasal Cannula 2.0 28 Intake and Output 12/20/17 12/21/17 19:00 07:00 Intake Total 1200 ml 240 ml Output Total 200 ml Balance 1200 ml 40 ml Intake Oral 240 ml Other 1200 ml Output Urine Total 200 ml # Voids 4 # Bowel Movements 3 Objective WDWN NAD reduced breath sounds bilaterally with scattered rhonchi [id number] without MRG NABS nontender no HSM no CC edema and erythema nonfocal weak reviewed and edited Current Medications Medications (Trade) Dose Ordered Sig/Sachin Route PRN Reason Start Time Stop Time Status Last Admin Dose Admin Acetaminophen (Tylenol) 650 mg Q4H PRN ORAL Mild Pain/Temp > 100.5 12/05/17 21:10 01/04/18 21:09 Al Hydroxide/Mg Hydroxide (Mylanta) 30 ml Q4H PRN ORAL Nausea & Vomiting 12/05/17 21:11 01/04/18 21:10 Albuterol/ Ipratropium (Albuterol/ Ipratropium) 3 ml Q4HRT HHN 12/17/17 05:00 12/22/17 04:59 12/21/17 07:29 Aspirin (Ecotrin) 81 mg DAILY ORAL 12/15/17 09:00 01/05/18 08:59 12/21/17 08:18 Atorvastatin Calcium (Lipitor) 10 mg BEDTIME ORAL 12/14/17 21:00 01/05/18 20:59 12/20/17 20:56 Colistimethate Sodium (Colistin *inhalation use only*) 75 mg Q12HR@10,22 INH 12/15/17 22:00 12/22/17 21:59 12/21/17 09:48 Diphenhydramine HCl (Benadryl) 50 mg Q4HR PRN ORAL Itching 12/11/17 16:30 01/10/18 16:29 12/13/17 00:16 Estrogens Conjugated (Premarin) 0.625 mg DAILY ORAL 12/15/17 09:00 01/06/18 08:59 12/21/17 08:21 Furosemide (Lasix) 40 mg DAILY ORAL 12/15/17 09:00 01/13/18 08:59 12/21/17 08:22 Magnesium Hydroxide (Mom) 30 ml DAILYPRN PRN ORAL Constipation 12/05/17 21:11 01/04/18 21:10 Metoprolol Tartrate (Lopressor) 25 mg Q12HR ORAL 12/14/17 21:00 01/13/18 20:59 12/21/17 08:19 Minocycline HCl (Minocin) 100 mg Q12HR ORAL 12/16/17 21:00 12/23/17 20:59 12/21/17 08:20 Montelukast Sodium (Singulair) 10 mg QPM ORAL 12/14/17 16:30 01/15/18 16:29 12/20/17 17:23 Pantoprazole (Protonix) 40 mg ACBREAKFAST ORAL 12/15/17 06:30 01/14/18 06:29 12/21/17 06:06 Prednisolone Acetate (Pred Forte) 1 drop QID RIGHT EYE 12/06/17 18:00 01/05/18 17:59 12/21/17 08:30 Salmeterol Xinafoate/ Fluticasone (Advair 250/50 Diskus) 1 puffs BIDRT INH 12/06/17 10:00 01/05/18 09:59 12/21/17 09:48 Triamcinolone Acetonide (Kenalog) 1 applic BID TOPIC 12/06/17 18:00 01/05/18 17:59 12/21/17 08:24 Shubham Rivera MD December 21, 2017 10:36
[2017-12-21 12:00] VITALS: BP 98/51
[2017-12-21 16:00] VITALS: BP 127/58
[2017-12-21] MEDS: Montelukast 10mg tablet ORAL SCH (17:54)
[2017-12-21 20:00] VITALS: BP 131/64
[2017-12-22] VITALS: BP 121/59
[2017-12-22] MEDS: Albuterol/Ipratropium 3ml neb HHN SCH ×4 (03:13→23:40)
[2017-12-22 04:00] VITALS: BP 129/54
--- NOTE | 2017-12-22 07:23 | Pulmonology Progress Note ---
Assessment/Plan Assessment/Plan 1. Probable pulmonary edema. 2. Pulmonary congestion. 3. Possible underlying pneumonia, RLL infiltrate 4. Pacemaker. 5. Hypertension. 6. Asthma/COPD. 7. Mild pleural effusion. 8. Failure to thrive. 9. Cellulitis 10.CT chest with RML atelectasis, nodule, hyperinflation PLAN wound care ongoing as outlined outpatient bronchoscopy of RML to assess for airway obstruction discussed but can defer to outpatient- aware MDR keep negative with noted peripheral edema respiratory care as is oxygen therapy stable for lower level of care unable to care for self at home maintain isolation for now ok to dispo for now patient aware of need for bronchoscopy and further CT follow up impression, plan, and exam edited and reviewed in detail care discussed with RN Subjective Allergies: Coded Allergies: IODINE (Verified Allergy, Unknown, 12/05/17) POVIDONE-IODINE (Verified Allergy, Unknown, 12/05/17) SOAP (Verified Allergy, Unknown, 12/05/17) Subjective care noted on isolation some congestion but able to clear Objective Last 24 Hour Vital Signs Date Time Temp Pulse Resp B/P (MAP) Pulse Ox O2 Delivery O2 Flow Rate FiO2 12/22/17 07:08 Nasal Cannula 12/22/17 07:08 Nasal Cannula 12/22/17 04:00 98.0 79 20 129/54 98 98.0 12/22/17 04:00 Nasal Cannula 2.0 12/22/17 03:23 86 18 96 Nasal Cannula 2.0 28 12/22/17 03:13 84 20 94 Nasal Cannula 2.0 28 12/22/17 00:00 98.1 72 20 121/59 99 98.1 12/22/17 00:00 Nasal Cannula 2.0 12/21/17 22:28 72 20 90 Nasal Cannula 2.0 28 12/21/17 22:28 Nasal Cannula 12/21/17 22:27 Nasal Cannula 12/21/17 22:17 72 20 90 Nasal Cannula 2.0 28 12/21/17 22:17 28 12/21/17 20:55 72 131/64 12/21/17 20:00 Nasal Cannula 2.0 12/21/17 20:00 97.9 72 20 131/64 90 97.9 12/21/17 19:56 72 18 99 Nasal Cannula 2.0 28 12/21/17 19:33 72 18 99 Nasal Cannula 2.0 28 12/21/17 19:33 72 18 99 Nasal Cannula 2.0 28 12/21/17 19:33 28 12/21/17 19:32 72 18 99 Nasal Cannula 2.0 28 12/21/17 19:29 Nasal Cannula 2.0 28 12/21/17 19:27 99 Nasal Cannula 2.0 28 12/21/17 16:00 97.2 72 18 127/58 97.2 12/21/17 15:17 79 20 99 Nasal Cannula 2.0 28 12/21/17 15:09 28 12/21/17 15:07 74 20 94 Nasal Cannula 2.0 28 12/21/17 12:00 97.3 78 20 98/51 97.3 12/21/17 11:26 83 18 99 Nasal Cannula 2.0 28 12/21/17 11:16 28 12/21/17 11:16 75 18 98 Nasal Cannula 2.0 28 12/21/17 09:56 79 18 98 Nasal Cannula 2.0 28 12/21/17 09:49 75 18 98 Nasal Cannula 2.0 28 12/21/17 09:48 72 18 97 Nasal Cannula 2.0 28 12/21/17 09:47 72 18 98 Nasal Cannula 2.0 28 12/21/17 08:19 81 144/78 12/21/17 08:00 97.2 74 18 141/78 98 Nasal Cannula 2.0 97.2 12/21/17 07:31 69 18 99 Nasal Cannula 2.0 28 Intake and Output 12/21/17 12/22/17 19:00 07:00 Intake Total 300 ml Balance 300 ml Intake Oral 300 ml # Voids 4 2 # Bowel Movements 3 Objective WDWN alert NAD reduced breath sounds bilaterally with minimal rhonchi [id number] without MRG NABS nontender no HSM no distention no CC edema and erythema nonfocal weak diffuse rashes reviewed and edited Current Medications Medications (Trade) Dose Ordered Sig/Sachin Route PRN Reason Start Time Stop Time Status Last Admin Dose Admin Acetaminophen (Tylenol) 650 mg Q4H PRN ORAL Mild Pain/Temp > 100.5 12/05/17 21:10 01/04/18 21:09 Al Hydroxide/Mg Hydroxide (Mylanta) 30 ml Q4H PRN ORAL Nausea & Vomiting 12/05/17 21:11 01/04/18 21:10 Aspirin (Ecotrin) 81 mg DAILY ORAL 12/15/17 09:00 01/05/18 08:59 12/21/17 08:18 Atorvastatin Calcium (Lipitor) 10 mg BEDTIME ORAL 12/14/17 21:00 01/05/18 20:59 12/21/17 20:54 Colistimethate Sodium (Colistin *inhalation use only*) 75 mg Q12HR@10,22 INH 12/15/17 22:00 12/22/17 21:59 12/21/17 22:23 Diphenhydramine HCl (Benadryl) 50 mg Q4HR PRN ORAL Itching 12/11/17 16:30 01/10/18 16:29 12/13/17 00:16 Estrogens Conjugated (Premarin) 0.625 mg DAILY ORAL 12/15/17 09:00 01/06/18 08:59 12/21/17 08:21 Furosemide (Lasix) 40 mg DAILY ORAL 12/15/17 09:00 01/13/18 08:59 12/21/17 08:22 Magnesium Hydroxide (Mom) 30 ml DAILYPRN PRN ORAL Constipation 12/05/17 21:11 01/04/18 21:10 Metoprolol Tartrate (Lopressor) 25 mg Q12HR ORAL 12/14/17 21:00 01/13/18 20:59 12/21/17 20:55 Minocycline HCl (Minocin) 100 mg Q12HR ORAL 12/16/17 21:00 12/23/17 20:59 12/21/17 20:55 Montelukast Sodium (Singulair) 10 mg QPM ORAL 12/14/17 16:30 01/15/18 16:29 12/21/17 17:54 Pantoprazole (Protonix) 40 mg ACBREAKFAST ORAL 12/15/17 06:30 01/14/18 06:29 12/22/17 06:13 Prednisolone Acetate (Pred Forte) 1 drop QID RIGHT EYE 12/06/17 18:00 01/05/18 17:59 12/21/17 20:54 Salmeterol Xinafoate/ Fluticasone (Advair 250/50 Diskus) 1 puffs BIDRT INH 12/06/17 10:00 6/3/18 09:59 12/21/17 19:35 Triamcinolone Acetonide (Kenalog) 1 applic BID TOPIC 12/06/17 18:00 01/05/18 17:59 12/21/17 17:55 Shubham Rivera MD December 22, 2017 07:23
[2017-12-22 08:00] VITALS: BP 142/82
[2017-12-22] MEDS: Aspirin EC 81mg tab ORAL SCH (08:10)
[2017-12-22] MEDS: Pred Forte 1% Opth Susp 1ml RIGHT EYE SCH ×5 (08:10→21:08)
[2017-12-22] MEDS: Furosemide 40mg tab ORAL SCH (08:10)
[2017-12-22] MEDS: Minocycline HCl 50mg cap ORAL SCH (08:10)
[2017-12-22] MEDS: Triamcinolone 0.1% 15gm Cr TOPIC SCH ×2 (08:10→17:59)
[2017-12-22] MEDS: Premarin tab 0.625MG ORAL SCH (08:11)
[2017-12-22] MEDS: Metoprolol 25mg tab ORAL SCH ×2 (08:18→21:08)
--- NOTE | 2017-12-22 09:39 | General Progress Note ---
Assessment/Plan Problem List: (1) Renal insufficiency ICD Codes: N28.9 - Disorder of kidney and ureter, unspecified SNOMED: 952012138, 289028668 (2) CHF (congestive heart failure) ICD Codes: I50.9 - Heart failure, unspecified SNOMED: 99283227 Qualifiers: Qualified Codes: I50.9 - Heart failure, unspecified (3) Bilateral lower leg cellulitis ICD Codes: L03.116 - Cellulitis of left lower limb; L03.115 - Cellulitis of right lower limb SNOMED: 350033561 (4) Skin cancer ICD Codes: C44.90 - Unspecified malignant neoplasm of skin, unspecified SNOMED: 998254272 (5) Sepsis ICD Codes: A41.9 - Sepsis, unspecified organism SNOMED: 30488616 (6) Acute respiratory failure ICD Codes: J96.00 - Acute respiratory failure, unspecified whether with hypoxia or hypercapnia SNOMED: 40691770 (7) CAP (community acquired pneumonia) ICD Codes: J18.9 - Pneumonia, unspecified organism SNOMED: 436181378 Assessment/Plan diuresis monitor renal fxn/labs/cxr resp rx chest physiotherapy abx per id pt/ot skin care dc planning to snf Subjective ROS Limited/Unobtainable: No Constitutional: Reports: malaise, weakness HEENT: Reports: no symptoms Cardiovascular: Reports: edema Respiratory: Reports: cough, shortness of breath, sputum Gastrointestinal/Abdominal: Reports: no symptoms Genitourinary: Reports: no symptoms Neurologic/Psychiatric: Reports: no symptoms Endocrine: Reports: no symptoms Hematologic/Lymphatic: Reports: no symptoms Allergies: Coded Allergies: IODINE (Verified Allergy, Unknown, 12/05/17) POVIDONE-IODINE (Verified Allergy, Unknown, 12/05/17) SOAP (Verified Allergy, Unknown, 12/05/17) All Systems: reviewed and negative except above Subjective no events. c/o congestion and productive cough- less with chest pt. pt appealed declined. pt filed 2nd appeal Objective Last 24 Hour Vital Signs Date Time Temp Pulse Resp B/P (MAP) Pulse Ox O2 Delivery O2 Flow Rate FiO2 12/22/17 08:18 76 130/57 12/22/17 08:00 97.7 60 18 142/82 Nasal Cannula 2.0 97.7 12/22/17 07:08 Nasal Cannula 12/22/17 07:08 Nasal Cannula 12/22/17 06:52 Nasal Cannula 2.0 28 12/22/17 06:52 97 Nasal Cannula 2.0 28 12/22/17 04:00 98.0 79 20 129/54 98 98.0 12/22/17 04:00 Nasal Cannula 2.0 12/22/17 03:23 86 18 96 Nasal Cannula 2.0 28 12/22/17 03:13 84 20 94 Nasal Cannula 2.0 28 12/22/17 00:00 98.1 72 20 121/59 99 98.1 12/22/17 00:00 Nasal Cannula 2.0 12/21/17 22:28 72 20 90 Nasal Cannula 2.0 28 12/21/17 22:28 Nasal Cannula 12/21/17 22:27 Nasal Cannula 12/21/17 22:17 72 20 90 Nasal Cannula 2.0 28 12/21/17 22:17 28 12/21/17 20:55 72 131/64 12/21/17 20:00 Nasal Cannula 2.0 12/21/17 20:00 97.9 72 20 131/64 90 97.9 12/21/17 19:56 72 18 99 Nasal Cannula 2.0 28 12/21/17 19:33 72 18 99 Nasal Cannula 2.0 28 12/21/17 19:33 72 18 99 Nasal Cannula 2.0 28 12/21/17 19:33 28 12/21/17 19:32 72 18 99 Nasal Cannula 2.0 28 12/21/17 19:29 Nasal Cannula 2.0 28 12/21/17 19:27 99 Nasal Cannula 2.0 28 12/21/17 16:00 97.2 72 18 127/58 97.2 12/21/17 15:17 79 20 99 Nasal Cannula 2.0 28 12/21/17 15:09 28 12/21/17 15:07 74 20 94 Nasal Cannula 2.0 28 12/21/17 12:00 97.3 78 20 98/51 97.3 12/21/17 11:26 83 18 99 Nasal Cannula 2.0 28 18 11:16 28 12/21/17 11:16 75 18 98 Nasal Cannula 2.0 28 12/21/17 09:56 79 18 98 Nasal Cannula 2.0 28 12/21/17 09:49 75 18 98 Nasal Cannula 2.0 28 12/21/17 09:48 72 18 97 Nasal Cannula 2.0 28 12/21/17 09:47 72 18 98 Nasal Cannula 2.0 28 Intake and Output 12/21/17 12/22/17 19:00 07:00 Intake Total 300 ml Balance 300 ml Intake Oral 300 ml # Voids 4 2 # Bowel Movements 3 Height (Feet): 4 Height (Inches): 9.00 Weight (Pounds): 226 Objective General Appearance: WD/WN, alert Neck: supple Cardiovascular: normal rate, regular rhythm Respiratory/Chest: lungs clear Abdomen: normal bowel sounds, non tender, soft, no organomegaly Edema: mild edema Neurologic: silicator II-XII grossly normal, no motor/sensory deficits, abnormal gait , alert, oriented x 3, responsive LUBA HERNANDEZ December 22, 2017 09:39
[2017-12-22] MEDS: Advair 250/50 Inhaler - 14 dose INH SCH ×2 (09:43→19:39)
[2017-12-22] MEDS: Colistin for inhalation INH SCH (09:46)
--- NOTE | 2017-12-22 10:28 | Infectious Diseases Prog Note ---
Assessment/Plan Assessment/Plan antibiotics : minocycline, inhaled colistin A 1. left leg cellulitis with acenitobacter s/p rx 2. CHF 3. COPD 4. squamous cell carcinoma 5. acenitobacter pneumonia s/p rx P 1. d/c minocycline, inhaled colistin 2. observe off antibiotics Subjective Constitutional: Denies: fever, chills Respiratory: Reports: shortness of breath, dry cough Gastrointestinal/Abdominal: Denies: nausea, vomiting, diarrhea Musculoskeletal: Reports: pain Allergies: Coded Allergies: IODINE (Verified Allergy, Unknown, 12/05/17) POVIDONE-IODINE (Verified Allergy, Unknown, 12/05/17) SOAP (Verified Allergy, Unknown, 12/05/17) Objective Vital Signs Last 24 Hour Vital Signs Date Time Temp Pulse Resp B/P (MAP) Pulse Ox O2 Delivery O2 Flow Rate FiO2 12/22/17 10:02 72 18 98 Nasal Cannula 2.0 12/22/17 09:46 72 18 98 Nasal Cannula 2.0 12/22/17 09:45 72 18 98 Nasal Cannula 2.0 12/22/17 09:43 72 18 98 Nasal Cannula 2.0 12/22/17 08:18 76 130/57 12/22/17 08:00 97.7 60 18 142/82 Nasal Cannula 2.0 97.7 12/22/17 07:08 Nasal Cannula 12/22/17 07:08 Nasal Cannula 12/22/17 06:52 Nasal Cannula 2.0 12/22/17 06:52 97 Nasal Cannula 2.0 12/22/17 04:00 98.0 79 20 129/54 98 98.0 12/22/17 04:00 Nasal Cannula 2.0 12/22/17 03:23 86 18 96 Nasal Cannula 2.0 12/22/17 03:13 84 20 94 Nasal Cannula 2.0 12/22/17 00:00 98.1 72 20 121/59 99 98.1 12/22/17 00:00 Nasal Cannula 2.0 12/21/17 22:28 72 20 90 Nasal Cannula 2.0 12/21/17 22:28 Nasal Cannula 12/21/17 22:27 Nasal Cannula 12/21/17 22:17 72 20 90 Nasal Cannula 2.0 28 12/21/17 22:17 28 12/21/17 20:55 72 131/64 12/21/17 20:00 Nasal Cannula 2.0 12/21/17 20:00 97.9 72 20 131/64 90 97.9 12/21/17 19:56 72 18 99 Nasal Cannula 2.0 28 12/21/17 19:33 72 18 99 Nasal Cannula 2.0 28 12/21/17 19:33 72 18 99 Nasal Cannula 2.0 28 12/21/17 19:33 28 12/21/17 19:32 72 18 99 Nasal Cannula 2.0 28 12/21/17 19:29 Nasal Cannula 2.0 28 12/21/17 19:27 99 Nasal Cannula 2.0 28 12/21/17 16:00 97.2 72 18 127/58 97.2 12/21/17 15:17 79 20 99 Nasal Cannula 2.0 28 12/21/17 15:09 28 12/21/17 15:07 74 20 94 Nasal Cannula 2.0 28 12/21/17 12:00 97.3 78 20 98/51 97.3 12/21/17 11:26 83 18 99 Nasal Cannula 2.0 28 12/21/17 11:16 28 12/21/17 11:16 75 18 98 Nasal Cannula 2.0 28 Height (Feet): 4 Height (Inches): 9.00 Weight (Pounds): 226 Respiratory/Chest: lungs clear Cardiovascular: normal rate, regular rhythm, no gallop/murmur Abdomen: soft, non tender Extremities: other - + edema, decreased erythema left leg Current Medications Medications (Trade) Dose Ordered Sig/Sachin Route PRN Reason Start Time Stop Time Status Last Admin Dose Admin Acetaminophen (Tylenol) 650 mg Q4H PRN ORAL Mild Pain/Temp > 100.5 12/05/17 21:10 01/04/18 21:09 Al Hydroxide/Mg Hydroxide (Mylanta) 30 ml Q4H PRN ORAL Nausea & Vomiting 12/05/17 21:11 01/04/18 21:10 Aspirin (Ecotrin) 81 mg DAILY ORAL 12/15/17 09:00 01/05/18 08:59 12/22/17 08:10 Atorvastatin Calcium (Lipitor) 10 mg BEDTIME ORAL 12/14/17 21:00 01/05/18 20:59 12/21/17 20:54 Colistimethate Sodium (Colistin *inhalation use only*) 75 mg Q12HR@10,22 INH 12/15/17 22:00 12/22/17 21:59 12/22/17 09:46 Diphenhydramine HCl (Benadryl) 50 mg Q4HR PRN ORAL Itching 12/11/17 16:30 01/10/18 16:29 12/13/17 00:16 Estrogens Conjugated (Premarin) 0.625 mg DAILY ORAL 12/15/17 09:00 01/06/18 08:59 12/22/17 08:11 Furosemide (Lasix) 40 mg DAILY ORAL 12/15/17 09:00 01/13/18 08:59 12/22/17 08:10 Magnesium Hydroxide (Mom) 30 ml DAILYPRN PRN ORAL Constipation 12/05/17 21:11 01/04/18 21:10 Metoprolol Tartrate (Lopressor) 25 mg Q12HR ORAL 12/14/17 21:00 01/13/18 20:59 12/22/17 08:18 Minocycline HCl (Minocin) 100 mg Q12HR ORAL 12/16/17 21:00 12/23/17 20:59 12/22/17 08:10 Montelukast Sodium (Singulair) 10 mg QPM ORAL 12/14/17 16:30 01/15/18 16:29 12/21/17 17:54 Pantoprazole (Protonix) 40 mg ACBREAKFAST ORAL 12/15/17 06:30 01/14/18 06:29 12/22/17 06:13 Prednisolone Acetate (Pred Forte) 1 drop QID RIGHT EYE 12/06/17 18:00 01/05/18 17:59 12/22/17 08:10 Salmeterol Xinafoate/ Fluticasone (Advair 250/50 Diskus) 1 puffs BIDRT INH 12/06/17 10:00 01/05/18 09:59 12/22/17 09:43 Triamcinolone Acetonide (Kenalog) 1 applic BID TOPIC 12/06/17 18:00 01/05/18 17:59 12/22/17 08:10 DEE DEE RANDHAWA December 22, 2017 10:28
[2017-12-22 12:00] VITALS: BP 105/69
[2017-12-22 16:00] VITALS: BP 144/73
[2017-12-22] MEDS: Montelukast 10mg tablet ORAL SCH (17:59)
[2017-12-22 20:00] VITALS: BP 129/65
[2017-12-23] VITALS: BP 143/63
[2017-12-23] MEDS: Albuterol/Ipratropium 3ml neb HHN SCH ×4 (03:52→15:27)
[2017-12-23 04:00] VITALS: BP 135/58
--- NOTE | 2017-12-23 08:02 | General Progress Note ---
Assessment/Plan Problem List: (1) Renal insufficiency ICD Codes: N28.9 - Disorder of kidney and ureter, unspecified SNOMED: 182591089, 738311124 (2) CHF (congestive heart failure) ICD Codes: I50.9 - Heart failure, unspecified SNOMED: 15903718 Qualifiers: Qualified Codes: I50.9 - Heart failure, unspecified (3) Bilateral lower leg cellulitis ICD Codes: L03.116 - Cellulitis of left lower limb; L03.115 - Cellulitis of right lower limb SNOMED: 090152998 (4) Skin cancer ICD Codes: C44.90 - Unspecified malignant neoplasm of skin, unspecified SNOMED: 910692033 (5) Sepsis ICD Codes: A41.9 - Sepsis, unspecified organism SNOMED: 45377031 (6) Acute respiratory failure ICD Codes: J96.00 - Acute respiratory failure, unspecified whether with hypoxia or hypercapnia SNOMED: 20722288 (7) CAP (community acquired pneumonia) ICD Codes: J18.9 - Pneumonia, unspecified organism SNOMED: 348361897 Status: stable, progressing Assessment/Plan diuresis monitor renal fxn/labs/cxr resp rx chest physiotherapy abx per id pt/ot skin care dc planning to snf Subjective ROS Limited/Unobtainable: No Constitutional: Reports: malaise, weakness HEENT: Reports: no symptoms Cardiovascular: Reports: no symptoms Respiratory: Reports: cough, SOB with excertion, sputum Gastrointestinal/Abdominal: Reports: no symptoms Genitourinary: Reports: no symptoms Neurologic/Psychiatric: Reports: no symptoms Endocrine: Reports: no symptoms Hematologic/Lymphatic: Reports: no symptoms Allergies: Coded Allergies: IODINE (Verified Allergy, Unknown, 12/05/17) POVIDONE-IODINE (Verified Allergy, Unknown, 12/05/17) SOAP (Verified Allergy, Unknown, 12/05/17) All Systems: reviewed and negative except above Subjective no events. c/o congestion and productive cough. ok with going to snf today Objective Last 24 Hour Vital Signs Date Time Temp Pulse Resp B/P (MAP) Pulse Ox O2 Delivery O2 Flow Rate FiO2 12/23/17 04:00 Nasal Cannula 2.0 12/23/17 04:00 97.5 79 19 135/58 98 97.5 12/23/17 03:59 74 18 98 Nasal Cannula 2.0 28 12/23/17 03:52 68 18 96 Nasal Cannula 2.0 28 12/23/17 00:00 98.0 72 20 143/63 95 98.0 12/23/17 00:00 Nasal Cannula 2.0 12/22/17 23:51 79 18 99 Nasal Cannula 2.0 28 12/22/17 23:40 71 18 96 Nasal Cannula 2.0 28 12/22/17 21:08 72 129/65 12/22/17 20:00 97.1 72 19 129/65 93 97.1 12/22/17 20:00 Nasal Cannula 2.0 12/22/17 19:52 75 18 98 Nasal Cannula 2.0 28 12/22/17 19:44 Nasal Cannula 2.0 28 12/22/17 19:44 97 Nasal Cannula 2.0 28 12/22/17 19:43 73 20 97 Nasal Cannula 2.0 28 12/22/17 19:41 70 18 98 Nasal Cannula 2.0 28 12/22/17 19:39 69 18 97 Nasal Cannula 2.0 28 12/22/17 16:00 97.7 65 20 144/73 Nasal Cannula 2.0 97.7 12/22/17 15:12 86 18 Room Air 21 12/22/17 15:00 80 20 Room Air 21 12/22/17 12:00 97.3 69 20 105/69 Nasal Cannula 2.0 97.3 12/22/17 10:02 72 18 98 Nasal Cannula 2.0 28 12/22/17 09:46 72 18 98 Nasal Cannula 2.0 28 12/22/17 09:45 72 18 98 Nasal Cannula 2.0 28 12/22/17 09:43 72 18 98 Nasal Cannula 2.0 28 12/22/17 08:18 76 130/57 12/22/17 08:00 97.7 60 18 142/82 Nasal Cannula 2.0 97.7 Intake and Output 12/22/17 12/23/17 19:00 07:00 Intake Total 260 ml Output Total 600 ml Balance 260 ml -600 ml Intake Oral 260 ml Output Urine Total 600 ml # Voids 4 # Bowel Movements 4 Height (Feet): 4 Height (Inches): 9.00 Weight (Pounds): 226 Objective General Appearance: WD/WN, alert Neck: supple Cardiovascular: normal rate, regular rhythm Respiratory/Chest: lungs clear Abdomen: normal bowel sounds, non tender, soft, no organomegaly Edema: mild edema 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
--- NOTE | 2017-12-23 08:25 | Pulmonology Progress Note ---
Assessment/Plan Assessment/Plan 1. Probable pulmonary edema. 2. Pulmonary congestion. 3. Possible underlying pneumonia, RLL infiltrate 4. Pacemaker. 5. Hypertension. 6. Asthma/COPD. 7. Mild pleural effusion. 8. Failure to thrive. 9. Cellulitis 10.CT chest with RML atelectasis, nodule, hyperinflation PLAN wound care ongoing as outlined outpatient bronchoscopy of RML to assess for airway obstruction discussed but can defer to outpatient- aware MDR keep negative with noted peripheral edema respiratory care as is oxygen therapy stable for lower level of care unable to care for self at home maintain isolation for now ok to dispo for now patient aware of need for bronchoscopy and further CT follow up patient awaiting second appeal from medicare impression, plan, and exam edited and reviewed in detail care discussed with RN Subjective Allergies: Coded Allergies: IODINE (Verified Allergy, Unknown, 12/05/17) POVIDONE-IODINE (Verified Allergy, Unknown, 12/05/17) SOAP (Verified Allergy, Unknown, 12/05/17) Subjective care noted on isolation stable congestion but able to clear Objective Last 24 Hour Vital Signs Date Time Temp Pulse Resp B/P (MAP) Pulse Ox O2 Delivery O2 Flow Rate FiO2 12/23/17 04:00 Nasal Cannula 2.0 12/23/17 04:00 97.5 79 19 135/58 98 97.5 12/23/17 03:59 74 18 98 Nasal Cannula 2.0 28 12/23/17 03:52 68 18 96 Nasal Cannula 2.0 28 12/23/17 00:00 98.0 72 20 143/63 95 98.0 12/23/17 00:00 Nasal Cannula 2.0 12/22/17 23:51 79 18 99 Nasal Cannula 2.0 28 12/22/17 23:40 71 18 96 Nasal Cannula 2.0 28 12/22/17 21:08 72 129/65 12/22/17 20:00 97.1 72 19 129/65 93 97.1 12/22/17 20:00 Nasal Cannula 2.0 12/22/17 19:52 75 18 98 Nasal Cannula 2.0 28 12/22/17 19:44 Nasal Cannula 2.0 28 12/22/17 19:44 97 Nasal Cannula 2.0 28 12/22/17 19:43 73 20 97 Nasal Cannula 2.0 28 12/22/17 19:41 70 18 98 Nasal Cannula 2.0 28 12/22/17 19:39 69 18 97 Nasal Cannula 2.0 28 12/22/17 16:00 97.7 65 20 144/73 Nasal Cannula 2.0 97.7 12/22/17 15:12 86 18 Room Air 21 12/22/17 15:00 80 20 Room Air 21 12/22/17 12:00 97.3 69 20 105/69 Nasal Cannula 2.0 97.3 12/22/17 10:02 72 18 98 Nasal Cannula 2.0 28 12/22/17 09:46 72 18 98 Nasal Cannula 2.0 28 12/22/17 09:45 72 18 98 Nasal Cannula 2.0 28 12/22/17 09:43 72 18 98 Nasal Cannula 2.0 28 Intake and Output 12/22/17 12/23/17 19:00 07:00 Intake Total 260 ml Output Total 600 ml Balance 260 ml -600 ml Intake Oral 260 ml Output Urine Total 600 ml # Voids 4 # Bowel Movements 4 Objective WDWN alert NAD reduced breath sounds bilaterally with only occasional rhonchi [id number] without MRG NABS nontender no HSM no distention; obese no CC edema and erythema somewhat improved nonfocal weak diffuse rashes reviewed and edited Current Medications Medications (Trade) Dose Ordered Sig/Sachin Route PRN Reason Start Time Stop Time Status Last Admin Dose Admin Acetaminophen (Tylenol) 650 mg Q4H PRN ORAL Mild Pain/Temp > 100.5 12/05/17 21:10 01/04/18 21:09 Al Hydroxide/Mg Hydroxide (Mylanta) 30 ml Q4H PRN ORAL Nausea & Vomiting 12/05/17 21:11 01/04/18 21:10 Albuterol/ Ipratropium (Albuterol/ Ipratropium) 3 ml Q4HRT HHN 12/22/17 15:00 12/27/17 14:59 12/23/17 03:52 Aspirin (Ecotrin) 81 mg DAILY ORAL 12/15/17 09:00 01/05/18 08:59 12/22/17 08:10 Atorvastatin Calcium (Lipitor) 10 mg BEDTIME ORAL 12/14/17 21:00 01/05/18 20:59 12/22/17 21:08 Diphenhydramine HCl (Benadryl) 50 mg Q4HR PRN ORAL Itching 12/11/17 16:30 01/10/18 16:29 12/13/17 00:16 Estrogens Conjugated (Premarin) 0.625 mg DAILY ORAL 12/15/17 09:00 01/06/18 08:59 12/22/17 08:11 Furosemide (Lasix) 40 mg DAILY ORAL 12/15/17 09:00 01/13/18 08:59 12/22/17 08:10 Magnesium Hydroxide (Mom) 30 ml DAILYPRN PRN ORAL Constipation 12/05/17 21:11 01/04/18 21:10 Metoprolol Tartrate (Lopressor) 25 mg Q12HR ORAL 12/14/17 21:00 01/13/18 20:59 12/22/17 21:08 Montelukast Sodium (Singulair) 10 mg QPM ORAL 12/14/17 16:30 01/15/18 16:29 12/22/17 17:59 Pantoprazole (Protonix) 40 mg ACBREAKFAST ORAL 12/15/17 06:30 01/14/18 06:29 12/22/17 06:13 Prednisolone Acetate (Pred Forte) 1 drop QID RIGHT EYE 12/06/17 18:00 01/05/18 17:59 12/22/17 17:59 Salmeterol Xinafoate/ Fluticasone (Advair 250/50 Diskus) 1 puffs BIDRT INH 12/06/17 10:00 01/05/18 09:59 12/22/17 19:39 Triamcinolone Acetonide (Kenalog) 1 applic BID TOPIC 12/06/17 18:00 01/05/18 17:59 12/22/17 17:59 Shubham Rivera MD December 23, 2017 08:25
[2017-12-23] MEDS: Advair 250/50 Inhaler - 14 dose INH SCH (08:26)
[2017-12-23] MEDS: Premarin tab 0.625MG ORAL SCH (09:30)
[2017-12-23] MEDS: Furosemide 40mg tab ORAL SCH (09:30)
[2017-12-23] MEDS: Metoprolol 25mg tab ORAL SCH (09:30)
[2017-12-23] MEDS: Aspirin EC 81mg tab ORAL SCH (09:30)
[2017-12-23] MEDS: Triamcinolone 0.1% 15gm Cr TOPIC SCH (09:31)
[2017-12-23] MEDS: Pred Forte 1% Opth Susp 1ml RIGHT EYE SCH ×2 (09:31→13:46)
[2017-12-23] MEDS ORDERED: Albuterol/Ipratropium 3ml neb ONE (11:39)
[2017-12-23 11:54] VITALS: BP 121/47
[2017-12-23] MEDS ORDERED: ASPIRIN EC81 MG ORAL (15:11)
[2017-12-23] MEDS ORDERED: ATORVASTATIN CA10 MG ORAL (15:12)
[2017-12-23] MEDS ORDERED: ADVAIR 250-501 EACH INH (15:13)
[2017-12-23] MEDS ORDERED: PREMARIN0.625 MG ORAL (15:13)
[2017-12-23] MEDS ORDERED: FUROSEMIDE40 MG ORAL (15:14)
[2017-12-23] MEDS ORDERED: DUONEB 0.5-3(2.53 ML HHN (15:14)
[2017-12-23] MEDS ORDERED: METOPROLOL TART25 MG ORAL (15:15)
[2017-12-23] MEDS ORDERED: MONTELUKAST SOD10 MG ORAL (15:17)
[2017-12-23] MEDS ORDERED: PRED FORTE1 ML OP (15:19)
[2017-12-23] MEDS ORDERED: PROTONIX40 MG ORAL (15:19)
[2017-12-23] MEDS ORDERED: KENALOG 0.1% CR15 GM APPLIC (15:21)
[2017-12-23 15:53] VITALS: BP 114/57
--- NOTE | 2017-12-24 | Progress Note ---
DATE: 12/20/2017 CARDIOLOGY PROGRESS NOTE SUBJECTIVE: The patient remains withdrawn and depressed following the of her here last week. She still has productive cough and congestion. She has appealed for discharge. She feels she is too weak and short of breath. OBJECTIVE: VITAL SIGNS: Blood pressure 135/63, pulse 71, and respiratory rate 18. LUNGS: Coarse breath sounds with rhonchi. No wheezing. CARDIAC: Regular rhythm and rate. Normal S1 and S2 with a 1/6 systolic apical murmur. ABDOMEN: Soft and nontender. EXTREMITIES: With 1+ dependent edema, mostly nonpitting. IMPRESSION: 1. Left lower extremity cellulitis. 2. Chronic obstructive pulmonary disease with exacerbation, improved. 3. Acute on chronic diastolic congestive heart failure, now compensated. 4. Acinetobacter pneumonia, improving. 5. Paroxysmal atrial ectopy, nonsustained. PLAN: 1. Antimicrobials. 2. Skin care. 3. Bronchodilators and respiratory hygiene. 4. Compression stockings. 5. Monitor cardiorenal parameters, volume status and adjust diuretic dosing accordingly. Levi Wu M.D. DR: ALCIDES JOB#: [id number] CC:
--- NOTE | 2017-12-24 | Progress Note ---
DATE: 12/21/2017 CARDIOLOGY PROGRESS NOTE SUBJECTIVE: The patient has congestion, productive cough, weakness and general malaise. She is quite depressed due to her 's . OBJECTIVE: VITAL SIGNS: Blood pressure 122/85, pulse 89, and respiratory rate 20. LUNGS: Coarse breath sounds. Scattered rhonchi. No wheezing. HEART: Regular rhythm and rate. Normal S1 and S2 with a 1/6 systolic murmur at apex. ABDOMEN: Soft and nontender. EXTREMITIES: A 1+ edema. IMPRESSION: 1. Lower extremity cellulitis with ulcer. 2. Chronic venous insufficiency. 3. Acute on chronic diastolic congestive heart failure. 4. COPD. 5. Acinetobacter pneumonia. 6. Situational depression. 7. Permanent pacemaker with appropriate function. PLAN: 1. Bronchodilators. 2. Respiratory hygiene. 3. DVT prophylaxis. 4. Cautious diuresis. 5. Titrate anti-failure regimen. 6. Outpatient pacemaker interrogation. Levi Wu M.D. DR: ALCIDES JOB#: [id number] CC:
--- NOTE | 2017-12-24 00:15 | Progress Note ---
DATE: 12/22/2017 CARDIOLOGY PROGRESS NOTE SUBJECTIVE: The patient discharge, awaiting response. The patient has congestion. No chest pain. OBJECTIVE: VITAL SIGNS: Blood pressure 129/54, pulse 79, and respiratory rate 20. LUNGS: With few rhonchi and no rales. CARDIAC: Regular rhythm and rate. Normal S1 and S2 and a 1/6 systolic apical murmur. ABDOMEN: Soft. EXTREMITIES: A 1+ edema. Wound site with no active drainage. IMPRESSION: 1. CHF, compensated clinically. 2. Hypertension, controlled. 3. Permanent pacemaker with appropriate function. 4. Atrial ectopy with nonsustained arrhythmias. 5. COPD with exacerbation. PLAN: 1. Continue current cardiovascular regimen. 2. Titrate diuretic dosing as an outpatient based on clinical parameters. 3. Maintain current cardiovascular regimen without change at this time. Levi Wu M.D. DR: ALCIDES JOB#: [id number] CC:
--- NOTE | 2017-12-24 01:15 | Progress Note ---
DATE: 12/23/2017 CARDIOLOGY PROGRESS NOTE SUBJECTIVE: The patient is ready to be discharged to a group home facility today. OBJECTIVE: VITAL SIGNS: Afebrile, blood pressure 135/58, pulse 79, and respiratory rate 19. LUNGS: Few rhonchi. CARDIAC: Regular rhythm and rate. Normal S1 and S2. ABDOMEN: Soft. EXTREMITIES: Trace edema. Left wound site without drainage. IMPRESSION AND PLAN: Stable for group home facility, has advanced cardiopulmonary disease and tenuous long-term. Discharge medication regimen reviewed and reconciled for discharge to group home facility. Levi Wu M.D. DR: ALCIDES JOB#: [id number] CC:
--- NOTE | 2017-12-25 09:01 | Discharge Summary ---
Discharge Summary Discharge Summary _ DATE OF ADMISSION: 12/05/2017 DATE OF DISCHARGE: 12/23/2017 REASON FOR ADMISSION: 82 years old female with past medical history significant for hypertension, CHF , pacemaker, chronic lower extremity edema, COPD/asthma ,presented to emergency department with cough and congestion and increased bilateral lower extremity edema. Patient had chronic cellulitis changes in both legs but it appeared to get worse. Patient reported pain in the legs, 8 out of 10, throbbing, nonradiating. Patient denied chest pain or shortness of breath. Patient denied fever or chills. Patient reported poor ambulation and use of home oxygen. Chest x-ray revealed pulmonary edema and possible pneumonia. EKG revealed paced rhythm. Pulse oximetry was stable on oxygen via nasal cannula. Laboratory workup revealed no leukocytosis, mild anemia with hemoglobin 11.1, hematocrit 34.3. Lactic acid 2.0. BUN 32, creatinine 1.5, proBNP 1317 , electrolytes and renal parameters stable. Patient admitted with diagnosis,of probable pulmonary edema, probable underlying pneumonia, pacemaker, hypertension , asthma/COPD, mild pleural effusion, cellulitis bilateral lower extremities, renal insufficiency. CONSULTANTS: deboner dr Wu pulmonary dr Rivera ID specialist dr Kumar Wolf [facility] COURSE: Patient admitted to telemetry floor. Patient started on IV diuresis with close monitoring of cardiorenal parameters and volumes. Foreign Service Teacher closely followed. Echocardiogram revealed preserved ejection fraction of 55%, concentric left ventricular hypertrophy. Moderate mitral regurgitation. Right ventricular systolic pressure of 35 consistent with mild pulmonary hypertension. Patient subsequently clinically improved on intravenous diuretic . and diuretic was changed to oral route. Antiplatelet therapy along with beta yolie and statin were continued. Blood pressure remained stable. Outpatient pacemaker interrogation to be arranged Supplemental oxygen and pulmonary toilet provided with hand-held nebulizing and chest physiotherapy.. Patient was followed up with the of chest x-ray. CT of the chest revealed complete atelectasis of the right middle lobe. Generalized hyperinflation consistent with COPD. Irregular and confluent bilateral paroxysmal capacity most notably at right lower lobe. Appearance nonspecific possibly representing either acute infiltrate or other inflammatory process versus chronic postinflammatory changes. Patient will need outpatient bronchoscopy as per radio sales account executive. Last chest x-ray revealed no definite acute process and clearing of previously demonstrated right base infiltrate. Patient was on empiric antibiotic. ID specialist closely followed. Wound culture revealed Acinetobacter MDR. Sputum culture revealed Acinetobacter MDR. Blood cultures were negative. Last chest x-ray revealed on no definite acute process, clearing of previously demonstrated right basilar infiltrate.. Patient status post treatment with antibiotics. ID specialist recommended observe patient off antibiotic . Patient afebrile, with no leukocytosis Renal parameters and electrolytes were closely monitored. Potassium replaced as needed. Nephrotoxins were avoided. Creatinine from initial 1.5 down to 1.2. Acute renal insufficiency was likely secondary to diuresis and improved to baseline. Pain management was addressed. Pain was controlled. DVT and GI prophylaxis provided. Patient was working with physical and occupational therapists.. Bowel regimen instituted. Patient was unable to care for self at home. Placement to [facility] facility was arranged. Patient will need arrangement of outpatient pacemaker interrogation and bronchoscopy. Patient was stable for discharge to [facility] facility . l FINAL DIAGNOSES: Left lower extremity cellulitis with Acinetobacter MDR, status post treatment Pneumonia with Acinetobacter MDR, status post treatment Acute on chronic diastolic CHF Pulmonary edema COPD/asthma, probable exacerbation Paroxysmal atrial ectopy Acute on chronic renal insufficiency , improved Permanent pacemaker Skin cancer with squamous cell carcinoma Chronic venous insufficiency bilateral lower extremity with edema Hypertensive heart disease Failure to thrive DISCHARGE MEDICATIONS: See Medication Reconciliation list. DISCHARGE INSTRUCTIONS: Patient was discharged to [facility] facility. Follow up with the health care provider at the facility. Outpatient bronchoscopy to be arranged. Outpatient pacemaker interrogation to be arranged. I have been assigned to dictate discharge summary for this account. I was not involved in the patient's management. Rohini Valdivia NP December 25, 2017 09:01
== END 2017-12-23 18:16 | DRG 291 ==
LOC: EDBD 16:32 → EMR 18:04 → 4E 18:22 → EDBEDREQ 18:47
DX: I13.0 Hypertensive heart and chronic kidney disease with heart failure and stage 1 through stage 4 chronic kidney disease, or unspecified chronic kidney disease (principal); I50.33 Acute on chronic diastolic (congestive) heart failure; J15.8 Pneumonia due to other specified bacteria; L03.116 Cellulitis of left lower limb; L03.115 Cellulitis of right lower limb; J91.8 Pleural effusion in other conditions classified elsewhere; J44.0 Chronic obstructive pulmonary disease with (acute) lower respiratory infection; J44.1 Chronic obstructive pulmonary disease with (acute) exacerbation; B96.89 Other specified bacterial agents as the cause of diseases classified elsewhere; N18.9 Chronic kidney disease, unspecified; Z95.0 Presence of cardiac pacemaker; R62.7 Adult failure to thrive; C44.90 Unspecified malignant neoplasm of skin, unspecified; I87.8 Other specified disorders of veins; I48.0 Paroxysmal atrial fibrillation
CPT/HCPCS: 36415; 71045; 71250; 80048; 80053; 80202; 82550; 82553; 83605; 83735; 83880; 85025; 87040; 87070; 87181; 87205; 93005; 93306; 94640; 94664; 94760; 99285; J7620; J8499